=== PATIENT | female | born 1935 | race Caucasian/White ===

== ENCOUNTER → 2022-08-02 | Outpatient (CLI) | payer MEDICARE, SELFPAY ==
[2022-08-02 11:31] LABS: EST Glomerular Filtration Rate 73 mL/min (>60); Est Glom Filt Rate - Afr Amer 88 mL/min (>60)
== END | disposition home or self-care (01) ==
LOC: LAB 10:38
PROVIDERS: PCP Family Medicine; Referring Provider Physician Assistant Surgical; Visit Provider Physician Assistant Surgical
DX: N28.9 Disorder of kidney and ureter, unspecified (principal)
CPT/HCPCS: 36415; 82565

== ENCOUNTER 2023-05-03 07:16 | Inpatient (IN) | payer MEDICARE, SELFPAY ==
[2023-05-03] VITALS (8 sets, daily range): BP systolic 151–193; BP diastolic 71–89; PULSE 64–86; RESP 14–18; TEMP 36.2–36.7; O2SAT 95–99; BMI 27.7; BMI 26.2
--- NOTE | 2023-05-03 07:25 | RAD_ITS ---
EXAM: XR RIGHT HIP WITH PELVIS WHEN PERFORMED, 2 OR 3 VIEWS CLINICAL INDICATION: atraumatic right hip pain TECHNIQUE: Two or three views of the right hip with pelvis when performed. COMPARISON: No relevant prior studies available. FINDINGS: BONES/JOINTS: Suspicious fracture line across the right femoral neck. Severe degenerative osteoarthrosis of both hip joints. No destructive or sclerotic lesions. Note that overlapping bowel shadows may however obscure fine detail. Sacroiliac joint is unremarkable. No widening of the pubic symphysis. SOFT TISSUES: Unremarkable. No soft tissue swelling or gas. RAD/HIP, UNI W/ Pelvis 2-3 Views IMPRESSION: 1. Suspicious fracture across the right femoral neck. 2. Severe degenerative osteoarthrosis of both hips. Electronically Signed: Kunal Cervantes MD at 9:36 EST ,
--- NOTE | 2023-05-03 07:25 | RAD_ITS ---
EXAM: XR RIGHT KNEE, 3 VIEWS CLINICAL INDICATION: atraumatic pain TECHNIQUE: Three views of the right knee. COMPARISON: No relevant prior studies available. FINDINGS: BONES/JOINTS: Faint calcifications above the patella. 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 Mild narrowing of the patellofemoral articulation medial and lateral femorotibial compartments. No acute fracture. No subluxation. Normal alignment. No sclerotic or destructive changes observed. SOFT TISSUES: Faint calcification of the right lateral meniscus. No soft tissue swelling or gas. No radiopaque foreign body. VASCULATURE: Vascular calcifications along the distal SFA down to the popliteal artery. RAD/Knee 3 Views IMPRESSION: 1. No acute osseous abnormality of the right knee. 2. Faint calcification in the right lateral meniscus suggestive of the arthropathy. 3. Mild tricompartmental degenerative osteoarthrosis of the right knee. Electronically Signed: Kunal Cervantes MD at 9:45 EST ,
--- NOTE | 2023-05-03 07:25 | RAD_ITS ---
EXAM: XR LEFT KNEE, 3 VIEWS CLINICAL INDICATION: atraumatic knee pain TECHNIQUE: Three views of the left knee. COMPARISON: No relevant prior studies available. 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 Prominent chondrocalcinosis along the medial and lateral femorotibial compartments. Calcific tendinosis in the anterior superior surface of the patella. No acute fracture. No subluxation. Normal alignment. Preservation of the joint space. No sclerotic or destructive changes observed. SOFT TISSUES: Prominent cluster of calcifications in the subcutaneous space overlying the anterior proximal tibial shaft. Minimal linear calcification in the suprapatellar bursa visible on the left lateral view but not confirmed in the AP view or patellar view. No soft tissue swelling or gas. No radiopaque foreign body. VASCULATURE: Vascular calcifications along the SFA and popliteal artery. RAD/Knee 3 Views IMPRESSION: 1. 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 2. Prominent cluster of calcifications forming a masslike calcified density overlying the anterior surface of the proximal tibial shaft. This may be old posttraumatic calcifications. 3. No suspicious acute fracture or dislocation of the left knee. Electronically Signed: Kunal Cervantes MD at 9:40 EST ,
--- NOTE | 2023-05-03 07:27 | ED.VIS.LOWEX ---
HPI History of Present Illness HPI Narrative: 89-year-old female 1+ year history of bilateral knee pain initially started in the left now both. Also complaining of right hip pain. Denies any fall injury or trauma. No prior lower extremity surgeries. She saw orthopedics within the last year. She denies any fever or redness. She has been using Tylenol and just darted ibuprofen for pain. Chief Complaint: Lower Extremity Injury Informant: patient and spouse/S.O. Occured/Mechanism Mechanism/Context: No injury and No blunt trauma Onset/Context/Timing Onset: - (Around 1 year.) Context: Gradual Onset Timing: Continuous Quality of Pain: Dull and Aching Current Severity: Moderate Maximum Severity: Moderate Associated Symptoms Associated Symptoms: Negative for Parasthesia, Weakness or Loss of Funtion Narrative Narrative: 87-year-old female with bilateral knee and right hip pain. No falls, trauma or fever. Prior similar symptoms: Yes Recent Illness/Hospitalization: No PFSH PFSH Home Medications atorvastatin 20 mg tablet 20 mg PO DAILY 05/03/23 [History Last Taken Unknown] timolol maleate 0.5 % eye drops 1 drp ophthalmic (eye) BID 05/03/23 [History Last Taken Unknown] Allergy/AdvReac Type Severity Reaction Status Date / Time ciprofloxacin Allergy Mild Hives Verified 05/03/23 08:34 duloxetine AdvReac Severe PT UNSURE Verified 05/03/23 08:34 OF REACTION Surgical History (Updated 05/03/23 @ 08:43 by Geneva Mclaughlin RN) History of tonsillectomy and adenoidectomy Social History Smoking Status: Never smoker ROS ROS ED ROS Narrative Patient denies recent illness. Review of Systems ROS Unobtainable: Denies due to encephalopathy Constitutional Constitutional ED: Denies chills or fever(s) Eyes Eyes: Denies blurry vision ENT ENT ED: Denies ear pain Cardiovascular Cardiovascular: Denies chest pain Respiratory/Chest Respiratory/Chest: Denies cough or dyspnea Gastrointestinal Gastrointestinal: Denies abdominal pain Genitourinary Genitourinary ED: Denies dysuria or hematuria Musculoskeletal Musculoskeletal: Denies arthralgias or back pain Integumentary Denies abscess or Abrasions Neurologic Neurologic: Denies headache(s) Psychiatric Psychiatric: Denies anxiety Endocrine Endocrinology: Denies polydipsia or polyphagia Hematologic/Lymphatic Hematologic/Lymphatic: Denies easy bleeding, easy bruising or lymphadenopathy Allergic/Immunologic Allergic/Immunologic ED: Denies mouth swelling or tongue swelling EXAM Physical Exam Narrative Exam Narrative: Well-appearing 87-year-old female. Vital signs stable afebrile. Blood pressure elevated 193/89. Does not look septic toxic or in distress. Family at bedside. H EENT exam unremarkable. Neck nontender. Lungs clear to auscultation bilaterally. Heart regular rhythm no murmur appreciated. Chest wall nontender. Abdomen soft nontender. Back nontender. Neurologically she is awake and alert. Moving all 4 extremities. 5 out of 5 motor strength. Both knees have changes consistent with arthritis. She is able to flex and extend at both hips knees ankles and feet. Dorsi and plantarflexion intact. There is no significant edema. No gross bony deformities. No redness or warmth. Const Vital Signs: 05/03/23 07:17 05/03/23 07:16 Temperature 97.1 F L Temperature Source Temporal Pulse Rate 73 Respiratory Rate 14 Blood Pressure 193/89 H Blood Pressure Mean 123 Pulse Ox 99 Oxygen Delivery Method Room Air Positive well nourished and well developed; Negative for cachectic, contractures or unkempt General Appearance ED: well developed and NAD; Negative for unkempt, cachectic or contractures Nutritional Appearance: Negative for cachectic HEENT Reports moist mucous membranes normocephalic and atraumatic; Negative for trauma or tenderness Eyes PERRL General Eye ED: Negative for other Neck full ROM and supple Thyroid: Negative for tender Lymph Lymphatic: Negative for other Chest Wall inspection of chest normal and palpation of chest normal Chest: Negative for other Resp normal respiratory effort, no retractions and clear to auscultation bilaterally Effort and Inspection: Negative for pain with movement Auscultation: Negative for rales, rhonchi, wheezes or diminished lung sounds Cardio regular rate, regular rhythm, S1 normal heart sound, S2 normal heart sound and no murmurs Rate: Negative for bradycardia or tachycardic Rhythm: Negative for abnormal rhythm Bruits: Negative for other GI non-tender, non-distended and no masses Inspection: Negative for abdominal distention Auscultation: normoactive bowel sounds Palpation: soft; Negative for tender, guarding or rebound tenderness present Bladder / Kidney Exam: No other Back/Spine no CVA tenderness General Back: Negative for CVA tenderness Cervical Spine: Negative for cervical spine tenderness Thoracic Spine / Upper Back: Negative for thoracic spinal tenderness Lumbar Spine / Lower Back: Negative for lumbar spinal tenderness Extremity normal to inspection and full ROM Extremity Narrative: Chronic arthritic changes to both knees. General Extremety ED: Negative for cyanosis or edema General Extremity: Negative for cyanosis or edema Neuro oriented x3, CN's II-XII intact bilaterally and moves all extremities Sensorium / Orientation: alert, oriented to person, oriented to place and oriented to time; Negative for orientation impaired, confused, lethargic or stuporous Motor Exam: strength 5/5 throughout Psych mental status grossly normal Appearance: Negative for unkempt Speech: No other Mood & Affect: Negative for anxious Skin no wounds Lesions: no lesions Rashes: no rashes Trauma: Negative for abrasion or laceration MDM MDM MDM Narrative Medical decision making narrative: 87-year-old female complaining of bilateral knee and right hip pain. Atraumatic for over a year. X-rays being obtained. Exam otherwise consistent with arthritis. Patient's right hip x-ray shows an atraumatic right femoral neck fracture nondisplaced. Discussed with orthopedics on-call Dr. Marquis Mercado. Patient will be admitted to the hospitalist and one of the physicians from [facility] will repair the hip fracture in the next several days. Patient family are aware. History & Record Review Discussion w/independent historian: Patient Additional record(s) reviewed:: Prior inpatient record, Prior outpatient record, Prior ED visit and Prior labs Lab Data Attestation: I reviewed the patient's lab results. Lab results narrative: CBC unremarkable. White count 9. H&H 14 and 42. Platelets 306. PT/INR normal. Electrolytes unremarkable. Gap of 5. Normal BUN 12 creatinine 0.6. Glucose 128. Labs: Laboratory Results - last 24 hr 05/03/23 10:05 WBC 9.7 RBC 4.65 Hgb 14.0 Hct 42.3 MCV 91.0 MCH 30.1 MCHC 33.1 RDW Std Deviation 42.0 RDW Coeff of Annel 12.7 Plt Count 306 MPV 9.7 PT 13.1 INR 1.0 Sodium 136 Potassium 3.6 Chloride 105 Carbon Dioxide 26.0 Anion Gap 5 BUN 12 Creatinine 0.63 Estim Creat Clear Calc 46.73 Est GFR (MDRD) Af Amer 115 Est GFR (MDRD) Non-Af 95 BUN/Creatinine Ratio 19.0 Glucose 128 H Calcium 9.5 Radiography Diagnostic Testing: Clinical Impression(s) from Imaging Studies Hip/Pelvis X-Ray 05/03/23 07:25 IMPRESSION: 1. Suspicious fracture across the right femoral neck. 2. Severe degenerative osteoarthrosis of both hips. Electronically Signed: Kunal Cervantes MD at 9:36 EST Reading Location ID and State: [facility] / [place] , Service support , Knee X-Ray 05/03/23 07:25 IMPRESSION: 1. 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 2. Prominent cluster of calcifications forming a masslike calcified density overlying the anterior surface of the proximal tibial shaft. This may be old posttraumatic calcifications. 3. No suspicious acute fracture or dislocation of the left knee. Electronically Signed: Kunal Cervantes MD at 9:40 EST , Knee X-Ray 05/03/23 07:25 IMPRESSION: 1. No acute osseous abnormality of the right knee. 2. Faint calcification in the right lateral meniscus suggestive of the arthropathy. 3. Mild tricompartmental degenerative osteoarthrosis of the right knee. Electronically Signed: Kunal Cervantes MD at 9:45 EST , Right knee x-ray no acute process. Interpreted by myself and the radiologist shows chronic changes consistent with arthritis. Left knee x-ray interpreted by myself and the radiologist shows no acute process. Degenerative arthritis of the knee. There is a calcification that looks like calcified tibial bursa sac. Pelvis and right hip x-ray shows nondisplaced fracture of the right femoral neck. Arthritis of both hips. Interpreted both by myself and the radiologist. Rhythm Strip Rhythm Strip: Sinus Rhythm Rate: 70 Ectopy: None EKG Initial EKG: Attestation: I personally reviewed and interpreted this EKG as follows: Interpretation: Sinus Rhythm and No Acute Injury Pattern Comments: Normal sinus rhythm rate of 70 no acute signs of NE, ischemia nor dysrhythmia. Preop EKG for surgery. Discharge Plan Triage Chief Complaint: Lower Extremity Injury ED Provider: Azar Solis Dx/Rx/DC Orders Clinical Impression: Arthritis of knee, History of hypertension, Closed fracture of right hip Prescriptions: No Action atorvastatin 20 mg tablet 20 mg PO DAILY Patient Comments: take 1/2 tablet by mouth at bedtime for cholesterol timolol maleate 0.5 % drops 1 drp ophthalmic (eye) BID Patient Comments: instill 1 drop into both eyes twice a day Primary Care Provider: Jaec Andrews Referrals: Jace Andrews MD [Primary Care Provider] - Disposition Disposition: Acute Care Hospital [facility]
[2023-05-03] MEDS: HYDROcodone Bitartrate/Apap 5/325 Tablet PO (07:46)
--- OUTSIDE RECORDS SUMMARY | 2023-05-03 08:01 | XMS RPT_ITS | CCD ---
Author Name Unknown Address [address] [place] [address] Organization [facility] Care Team Providers Care Early Childhood Education Specialist Name Role Phone Janusz Andrews MD Primary Care Provider JANUSZ ANDREWS Primary Care Unavailab le PODLOGAR, JANE Referring Unavailable JANUSZ ANDREWS Primary Care Unavailab le PODLOGAR, JANE Referring Unavailable JANUSZ ANDREWS Primary Care Unavailab le PODLOGAR, JANE Referring Unavailable JANUSZ ANDREWS Primary Care Unavailab le PODLOGAR, JANE Referring Unavailable JANUSZ ANDREWS Primary Care Unavailab le JANUSZ ANDREWS Primary Care Unavailab le PODLOGAR, JANE Referring Unavailable JANUSZ ANDREWS Primary Care Unavailab le PODLOGAR, JANE Referring Unavailable JANUSZ ANDREWS Primary Care Unavailab le PODLOGAR, JANE Referring Unavailable KEKE LAUREN Attending Unavailable JANUSZ ANDREWS Primary Care Unavailab le PODLOGAR, JANE Referring Unavailable KEKE LAUREN Attending Unavailable JANUSZ ANDREWS Primary Care Unavailab le PODLOGAR, JANE Referring Unavailable KEKE LAUREN Attending Unavailable JANUSZ ANDREWS Primary Care Unavailab le PODLOGAR, JANE Referring Unavailable KEKE LAUREN Attending Unavailable JANUSZ ANDREWS Primary Care Unavailab le PODLOGAR, JANE Referring Unavailable KEKE LAUREN Attending Unavailable JANUSZ ANDREWS Primary Care Unavailab le PODLOGAR, JANE Referring Unavailable JANUSZ ANDREWS Primary Care Unavailab le PODLOGAR, JANE Referring Unavailable JANUSZ ANDREWS Primary Care Unavailab le PODLOGAR, JANE Attending Unavailable PODLOGAR, JANE Referring Unavailable JANUSZ ANDREWS Primary Care Unavailab le PODLOGAR, JANE Attending Unavailable Allergies Allergy Classification Reported Allergen(s) Allergy Type Date of Onset Reaction(s) Facility (20 sources) Ciprofloxacin; Translations: [CIPROFLOXACIN] Drug Allergy 07-22-2005 Rash, Hives [facility] Work Phone: (20 sources) DULoxetine; Translations: [DULOXETINE] Drug Allergy 08-08-2021 Intolerance [facility] Work Phone: Medications Completed/Discontinued Medications Medication Drug Class(es) Dates Sig (Normalized) Sig (Original) atorvastatin 20 mg oral tablet (20 sources) HMG-CoA Reductase Inhibitor Start: 03-09-2021 End: 12-27-2022 take 0.5 tablet by mouth once daily at bedtime for hyperlipidemia atorvastatin (LIPITOR) 20 mg tablet Indications: Mixed hyperlipidemia Take 0.5 tablets by mouth daily at bedtime. For cholesterol. 90 tablet 1 12/27/2022 Active Problems Active Problems Problem Classification Problem Date Documented Date Episodic/Chronic Cataract (20 sources) Bilateral cataracts; Translations: [Unspecified cataract] Onset: 08-04-2015 08-04-2015 Chronic Disorders of lipid metabolism (20 sources) Mixed hyperlipidemia; Translations: [Mixed hyperlipidemia] Onset: 04-29-2006 08-04-2015 Chronic Diverticulosis and diverticulitis (20 sources) Diverticulosis of colon; Translations: [Diverticulosis of large intestine without perforation or abscess without bleeding] 08-04-2015 Chronic Glaucoma (20 sources) Glaucoma; Translations: [Unspecified glaucoma] 11-18-2017 Chronic Hemorrhoids (20 sources) Hemorrhoids; Translations: [Unspecified hemorrhoids] 08-04-2015 Episodic Menopausal disorders (20 sources) Atrophic vaginitis; Translations: [Postmenopausal atrophic vaginitis] Onset: 01-27-2012 08-04-2015 Chronic Other and unspecified benign neoplasm (20 sources) History of polyp of colon; Translations: [Personal history of colonic polyps] 08-04-2015 Episodic Other connective tissue disease (12 sources) Paraparesis; Translations: [Other symptoms and signs involving the musculoskeletal system] Onset: 01-02-2023 12-04-2022 Episodic Other connective tissue disease (1 source) Other symptoms and signs involving the musculoskeletal system; Translations: [Weakness of both lower extremities] Onset: 01-02-2023 Episodic Other ear and sense organ disorders (20 sources) Hearing loss; Translations: [Unspecified hearing loss, unspecified ear] Onset: 08-04-2015 08-04-2015 Chronic Other lower respiratory disease (2 sources) Dyspnea on exertion; Translations: [Other forms of dyspnea] 12-04-2022 Episodic Other nutritional; endocrine; and metabolic disorders (20 sources) Obese class I; Translations: [Obesity, unspecified] 03-31-2018 Chronic Other screening for suspected conditions (not mental disorders or infectious disease) (2 sources) Patient encounter status; Translations: [Encounter for screening mammogram for malignant neoplasm of breast] Episodic Other skin disorders (1 source) Mass of subcutaneous tissue of left lower leg; Translations: [Localized swelling, mass and lump, left lower limb] Episodic Lynne-; endo-; and myocarditis; cardiomyopathy (except that caused by tuberculosis or sexually transmitted disease) (20 sources) Heart valve disorder; Translations: [Endocarditis, valve unspecified] Onset: 04-29-2006 03-19-2021 Chronic 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) Midline cystocele; Translations: [Cystocele, midline] Onset: 08-04-2015 08-04-2015 Chronic Spondylosis; intervertebral disc disorders; other back problems (12 sources) Neck pain; Translations: [Cervicalgia] Onset: 01-02-2023 12-27-2022 Episodic Past or Other Problems Problem Classification Problem Date Documented Da te Episodic/Chronic Malaise and fatigue (2 sources) Fatigue; Translations: [Other fatigue] Onset: 12-06-2022 12-04-2022 Episodic Neoplasms of unspecified nature or uncertain behavior (20 sources) Neoplasm of uncertain behavior of skin; Translations: [Neoplasm of uncertain behavior of skin] Onset: 08-04-2015 08-04-2015 Episodic Other connective tissue disease (20 sources) Aching leg syndrome; Translations: [Pain in leg, unspecified] Onset: 07-31-2021 Episodic Other lower respiratory disease (20 sources) Multiple nodules of lung; Translations: [Other nonspecific abnormal finding of lung field] Onset: 04-16-2018 04-16-2018 Episodic Other lower respiratory disease (1 source) Other forms of dyspnea; Translations: [Dyspnea on exertion] Onset: 12-04-2022 Episodic Other non-traumatic joint disorders (20 sources) Chronic pain of left upper limb; Translations: [Pain in left shoulder] Onset: 09-13-2019 09-13-2019 Episodic Results Test Name Value Interpretation Reference Range Facil ity Vital Signs Date Time Vital Sign Value Performing Clinician Lida smith 12-27-2022 13:13-0400 Body weight 67.95 kg Jane Podlogar DIRECTOR OF REAL ESTATE.COUNTER SALES REPRESENTATIVE Work Phone: [facility] 12-27-2022 13:13-0400 Diastolic blood pressure 78 mm[Hg] Jane Podlogar DIRECTOR OF REAL ESTATE.COUNTER SALES REPRESENTATIVE Work Phone: [facility] 12-27-2022 13:13-0400 Heart rate 72 /min Jane Podlogar DIRECTOR OF REAL ESTATE.COUNTER SALES REPRESENTATIVE Work Phone: [facility] 12-27-2022 13:13-0400 Respiratory rate 18 /min Jane Podlogar DIRECTOR OF REAL ESTATE.COUNTER SALES REPRESENTATIVE Work Phone: [facility] 12-27-2022 13:13-0400 SaO2% (BldA) [Mass fraction] 95 % Jane Podlogar DIRECTOR OF REAL ESTATE.COUNTER SALES REPRESENTATIVE Work Phone: [facility] 12-27-2022 13:13-0400 Systolic blood pressure 142 mm[Hg] Jane Podlogar DIRECTOR OF REAL ESTATE.COUNTER SALES REPRESENTATIVE Work Phone: [facility] 12-04-2022 14:20-0400 Body weight 68.95 kg Jane Podlogar DIRECTOR OF REAL ESTATE.COUNTER SALES REPRESENTATIVE Work Phone: [facility] 12-04-2022 14:20-0400 Diastolic blood pressure 84 mm[Hg] Jane Podlogar DIRECTOR OF REAL ESTATE.COUNTER SALES REPRESENTATIVE Work Phone: [facility] 12-04-2022 14:20-0400 Heart rate 71 /min Jane Podlogar DIRECTOR OF REAL ESTATE.COUNTER SALES REPRESENTATIVE Work Phone: [facility] 12-04-2022 14:20-0400 Respiratory rate 20 /min Jane Podlogar DIRECTOR OF REAL ESTATE.COUNTER SALES REPRESENTATIVE Work Phone: [facility] 12-04-2022 14:20-0400 SaO2% (BldA) [Mass fraction] 98 % Jane Podlogar DIRECTOR OF REAL ESTATE.COUNTER SALES REPRESENTATIVE Work Phone: [facility] 12-04-2022 14:20-0400 Systolic blood pressure 182 mm[Hg] Jane Podlogar DIRECTOR OF REAL ESTATE.COUNTER SALES REPRESENTATIVE Work Phone: [facility] 12-17-2021 10:21-0400 Body weight 73.3 kg Jane Podlogar DIRECTOR OF REAL ESTATE.COUNTER SALES REPRESENTATIVE Work Phone: [facility] 12-17-2021 10:21-0400 Diastolic blood pressure 82 mm[Hg] Jane Podlogar DIRECTOR OF REAL ESTATE.COUNTER SALES REPRESENTATIVE Work Phone: [facility] 12-17-2021 10:21-0400 Heart rate 68 /min Jane Podlogar DIRECTOR OF REAL ESTATE.COUNTER SALES REPRESENTATIVE Work Phone: [facility] 12-17-2021 10:21-0400 Respiratory rate 16 /min Jane Podlogar DIRECTOR OF REAL ESTATE.COUNTER SALES REPRESENTATIVE Work Phone: [facility] 12-17-2021 10:21-0400 SaO2% (BldA) [Mass fraction] 96 % Jane Podlogar DIRECTOR OF REAL ESTATE.COUNTER SALES REPRESENTATIVE Work Phone: [facility] 12-17-2021 10:21-0400 Systolic blood pressure 142 mm[Hg] Jane Podlogar DIRECTOR OF REAL ESTATE.COUNTER SALES REPRESENTATIVE Work Phone: [facility] Encounters Encounter Date Encounter Type Care Provider Facility Start: 01-29-2023 End: 01-29-2023 [facility] KEKE LEONIDAS Facility:[facility] Start: 01-29-2023 End: 01-29-2023 ambulatory [facility] LAURA Sandoval [facility] Physical Therapy Procedures Date Procedure Procedure Detail Performing Clinician Start: 12-21-2022 [employer] COVI D-19 VACCINE ( SEASON) AGE 12+ YR Kade Fisher MD Work Phone: Start: 12-21-2022 INFLUENZA VACCINE, P RSV FREE, AGE 65+ YR, HIGH DOSE, QUADRIVALENT (FLUZONE HIGH-DOSE) Kade Fisher MD Work Phone: Start: 12-09-2022 Myocardial spect mul tiple studies Jane Podlogar DIRECTOR OF REAL ESTATE.COUNTER SALES REPRESENTATIVE Work Phone: Start: 12-26-2021 INFLUENZA SEASONAL QUADRIVALENT HIGH DOSE AGE 65+ Janusz Andrews MD Work Phone: Start: 06-11-2021 Screening mammograph y bi [facility] breast [facility] cad Jane Perez DIRECTOR OF REAL ESTATE.COUNTER SALES REPRESENTATIVE Work Phone: Plan of Treatment Date Care Activity Detail Author Start: 03-31-2028 Urine microalbumin profile [facility] Start: 12-04-2025 Diabetes Screening Diabetes Screenin g [facility] Start: 05-31-2024 DIABETES SCREEN DIABETES SCREEN [facility] Start: 05-31-2024 Diabetes Screening Diabetes Screenin g [facility] Start: 02-15-2023 Covid-19 Vaccine (4 - Moderna series) Covid-19 Vaccine (4 - Moderna series) [facility] Start: 12-04-2022 End: 02-03-2023 Comprehensive metabolic 2000 panel - Serum or Plasma [facility] Work Phone: Immunizations Immunization Date Immunization Notes Care Provider Fa cility 12-21-2022 COVID-19 vaccine, ag e 12+ yr, season (PFIZER-BIONTECH) Immunization [place] Work Phone: [facility] Work Phone: 12-21-2022 influenza (HD-IIV4) vaccine, age 65+ yr, high dose, quadrivalent, PF (FLUZONE HIGH-DOSE) Immunization [place] Work Phone: [facility] 12-26-2021 influenza, high-dose , quadrivalent vaccine (FLUZONE HIGH DOSE QUADRIVALENT) [facility] Work Phone: [facility] Work Phone: 12-26-2021 influenza virus vaccine, unspecified formulation Jane Perez DIRECTOR OF REAL ESTATE.COUNTER SALES REPRESENTATIVE Work Phone: [facility] 12-16-2020 influenza, high-dose , quadrivalent vaccine (FLUZONE HIGH DOSE QUADRIVALENT) Jane Perez DIRECTOR OF REAL ESTATE.COUNTER SALES REPRESENTATIVE Work Phone: [facility] Work Phone: 12-25-2019 influenza, high-dose , quadrivalent vaccine (FLUZONE HIGH DOSE QUADRIVALENT) Jane Podlogar DIRECTOR OF REAL ESTATE.COUNTER SALES REPRESENTATIVE Work Phone: [facility] 01-15-2019 influenza, high dose seasonal, preservative-free Jane Podlogar DIRECTOR OF REAL ESTATE.COUNTER SALES REPRESENTATIVE Work Phone: [facility] 12-20-2017 influenza, high dose seasonal, preservative-free Jane Podlogar DIRECTOR OF REAL ESTATE.COUNTER SALES REPRESENTATIVE Work Phone: [facility] 2016 influenza, high dose seasonal, preservative-free Jane Podlogar DIRECTOR OF REAL ESTATE.COUNTER SALES REPRESENTATIVE Work Phone: [facility] 01-31-2016 influenza, high dose seasonal, preservative-free Jane Podlogar DIRECTOR OF REAL ESTATE.[facility] Work Phone: [facility] Work Phone: 08-04-2015 pneumococcal conjuga te vaccine, 13 valent Jane Podlogar DIRECTOR OF REAL ESTATE.[facility] Work Phone: [facility] 12-22-2014 influenza, high dose seasonal, preservative-free Jane Podlogar DIRECTOR OF REAL ESTATE.[facility] Work Phone: [facility] 12-29-2013 influenza, seasonal, injectable Jane Podlogar DIRECTOR OF REAL ESTATE.[facility] Work Phone: [facility] 01-02-2013 influenza virus vaccine, unspecified formulation Jane Podlogar DIRECTOR OF REAL ESTATE.[facility] Work Phone: [facility] Work Phone: 12-28-2011 influenza virus vaccine, unspecified formulation Jane Podlogar DIRECTOR OF REAL ESTATE.COUNTER SALES REPRESENTATIVE Work Phone: [facility] Work Phone: 12-22-2010 influenza virus vaccine, unspecified formulation Jane Podlogar DIRECTOR OF REAL ESTATE.[facility] Work Phone: [facility] Work Phone: 01-18-2010 influenza virus vaccine, unspecified formulation Jane Podlogar DIRECTOR OF REAL ESTATE.[facility] Work Phone: [facility] Work Phone: 01-06-2009 influenza virus vaccine, unspecified formulation Jane Perez DIRECTOR OF REAL ESTATE.COUNTER SALES REPRESENTATIVE Work Phone: [facility] 09-19-2004 tetanus toxoid, adsorbed Jane Podlogernestina DIRECTOR OF REAL ESTATE.COUNTER SALES REPRESENTATIVE Work Phone: [facility] Work Phone: 04-26-2004 pneumococcal polysaccharide vaccine, 23 valent Keke Leonidas PT Work Phone: [facility] Payers Date Payer Category Payer Medicare MEDICARE MEDICAR E A AND B [id number] 2002-Present [phone] [place] [address] Medicare [id number] 2002 Medicare MEDICARE MEDICAR E A AND B [id number] 2002-Present [phone] [place] [address] Medicare [id number] 2002 Medicare [id number] Social History Date Type Detail Facility Start: 10-12-2012 End: 12-04-2022 Tobacco smoking status NHIS Never smoked tobacco [facility] Work Phone: Start: 07-24-2020 End: 12-27-2022 Alcohol intake Current non-drinker of alcohol (finding) [facility] Start: 1935 Sex Assigned At Not on file [facility] Start: 06-01-2021 End: 08-06-2021 Exposure to SARS-CoV-2 (event) Not sure [facility] Start: 10-12-2012 End: 12-04-2022 Tobacco use and exposure Smokeless tobacco non-user [facility] Work Phone: Start: 03-31-2018 End: 12-04-2022 History of Social function [facility] Start: 03-31-2018 End: 12-04-2022 Tobacco use panel [facility] Adult Depression Screening Assessment 0 [facility] Clinical Notes 08-04-2015 to 01-30-2023 Keke Lauren, PT - 01/30/2023 3:01 PM Keke Shelton, PT - 01/21/2023 1:11 PM Keke Munoz, PT - 01/16/2023 2:16 PM Keke Munoz, PT - 01/10/2023 3:11 PM EDT Note Date & Type Note Facility 01-30-2023 Note HNO ID: [id number] Author: Keke Lauren PT Service: ? Author Type: Physical Therapist Type: Progress Notes Filed: 01/30/2023 3:03 PM Note Text: Episode Visit Count: 5 Therapist That Will Accept/Oversee The Plan Of Care: Keke Lauren Start of Care Date: 01/02/23 Onset Date: 03/24/22 Plan of Care Certification Date: 01/02/23 Next Certification Due Date: 03/23/23 REHABILITATION AND SPORTS THERAPY PHYSICAL THERAPY DISCONTINUANCE OF CARE PLAN OF CARE UPDATE: Assessment: Telma Santos is discontinued from Physical Therapy services due to goal achievement. and Patient/Clinician mutual decision to discontinue current plan of care.. Patient was seen for 5 visits from Start of Care Date: 01/02/23 to 01/30/2023 and treatment included: Therapeutic exercise, Self-fpc management, and Gait training. Goals updated on 01/29/2023. Goals for Episode of Care: created on 01/02/23 through 03/04/23 [place] in home exercise program. Met Patient will decrease pain rating by 2 points to meet minimal clinical important difference for numeric pain rating scale. Met Patient will demonstrate increase in trunk/core and BLE strength to 4+/5 during manual muscle testing in order to improve function for basic self-care tasks, home management tasks, and light functional tasks. Perform walking, standing with decreased report of symptoms/pain in 6-8 Weeks. Partially met Perform self care without pain. Met Patient will Improve Timed Up and Go to 15 seconds to demonstrate decreased risk of falling. Improved but not met Patient will improve 30 second sit to stand to demonstrate improvement in functional lower extremity strength. Met SUBJECTIVE: Pt doing well today. She is very encouraged by her progress and enjoys doing the exercises. She notes that she feels confident doing them on her own, would like today to be the last visit. Pain: Pain Pain Level: 2 Pain Location: Leg - Right Description: Sore Frequency: Continuous PROMIS Scales Higher is Better 01/02/2023 Phys Func - Score 32 (moderate dysfunction) Phys Func - Percentile 4 % Self-Eff Symptom - Score 29 (Very Low) Self-Eff Symptom - Percentile 2 % T-scores: mean of general population = 50. 5 points is clinically meaningfully difference Percentiles provide an indication of how the patient's score ranks in relation to the general population. Higher percentile rankings indicate better function/quality of life. 50th percentile is the average of the general population and indicates half of respondents had a worse score. OBJECTIVE MEASURES WITH LEVEL OF FUNCTION: Cervical Spine ROM Cervical Flexion AROM: Normal Cervical Extension AROM: Normal Cervical Side-Bend Right AROM: Minimal limitation Cervical Side-Bend Left AROM: Minimal limitation Cervical Rotation Right AROM: Normal Cervical Rotation Left AROM: Normal LE Strength Trunk Strength: 4-/5 R LE Strength: 4+/5 L LE Strength: 4+/5 Functional Performance Test Results 30 Second Chair Stand Test: 9 reps Timed Up and Go (sec): 23.2 sec 4 Stage Balance Test Narrow base of support (sec): 10 sec Semi-tandem base of support (sec): 10 sec Tandem base of support (sec): 10 sec Single leg stance - right (sec): 2 sec Single leg stance - left (sec): 2 sec TREATMENT: Therapeutic Exercise: 1: SciFit seat 11 x6 min (1:1 entire time, discussed HEP compliance and patients desire to continue on own, reviewed therapy goals) 2: Discussed HEP and progressions/regressions 3: Objective measures obtained Skilled Intervention: Patient was educated in proper exercise technique and purpose for exercises. Skilled judgment was used in selection of appropriate interventions. Correct performance of therapeutic exercises was facilitated with verbal cuing. Patient education as noted. Billing Therapeutic Exercise Treatment Minutes: 30 Skilled Treatment Time Minutes (timed and untimed codes): 30 Total Session Time (minutes): 30 Session Start Time : 1430 Session Stop Time : 1500 Keke Lauren PT [facility] 01-30-2023 History of Presen t illness Narrative Episode Visit Count: 5 Therapist That Will Accept/Oversee The Plan Of Care: Keke Lauren Start of Care Date: 01/02/23 Onset Date: 03/24/22 Plan of Care Certification Date: 01/02/23 Next Certification Due Date: 03/23/23 REHABILITATION AND SPORTS THERAPY PHYSICAL THERAPY DISCONTINUANCE OF CARE PLAN OF CARE UPDATE: Assessment: Telma Santos is discontinued from Physical Therapy services due to goal achievement. and Patient/Clinician mutual decision to discontinue current plan of care.. Patient was seen for 5 visits from Start of Care Date: 01/02/23 to 01/30/2023 and treatment included: Therapeutic exercise, Self-fpc management, and Gait training. Goals updated on 01/29/2023. Goals for Episode of Care: created on 01/02/23 through 03/04/23 [place] in home exercise program. Met Patient will decrease pain rating by 2 points to meet minimal clinical important difference for numeric pain rating scale. Met Patient will demonstrate increase in trunk/core and BLE strength to 4+/5 during manual muscle testing in order to improve function for basic self-care tasks, home management tasks, and light functional tasks. Perform walking, standing with decreased report of symptoms/pain in 6-8 Weeks. Partially met Perform self care without pain. Met Patient will Improve Timed Up and Go to 15 seconds to demonstrate decreased risk of falling. Improved but not met Patient will improve 30 second sit to stand to demonstrate improvement in functional lower extremity strength. Met SUBJECTIVE: Pt doing well today. She is very encouraged by her progress and enjoys doing the exercises. She notes that she feels confident doing them on her own, would like today to be the last visit. Pain: Pain Pain Level: 2 Pain Location: Leg - Right Description: Sore Frequency: Continuous PROMIS Scales Higher is Better 01/02/2023 Phys Func - Score 32 (moderate dysfunction) Phys Func - Percentile 4 % Self-Eff Symptom - Score 29 (Very Low) Self-Eff Symptom - Percentile 2 % T-scores: mean of general population = 50. 5 points is clinically meaningfully difference Percentiles provide an indication of how the patient's score ranks in relation to the general population. Higher percentile rankings indicate better function/quality of life. 50th percentile is the average of the general population and indicates half of respondents had a worse score. OBJECTIVE MEASURES WITH LEVEL OF FUNCTION: Cervical Spine ROM Cervical Flexion AROM: Normal Cervical Extension AROM: Normal Cervical Side-Bend Right AROM: Minimal limitation Cervical Side-Bend Left AROM: Minimal limitation Cervical Rotation Right AROM: Normal Cervical Rotation Left AROM: Normal LE Strength Trunk Strength: 4-/5 R LE Strength: 4+/5 L LE Strength: 4+/5 Functional Performance Test Results 30 Second Chair Stand Test: 9 reps Timed Up and Go (sec): 23.2 sec 4 Stage Balance Test Narrow base of support (sec): 10 sec Semi-tandem base of support (sec): 10 sec Tandem base of support (sec): 10 sec Single leg stance - right (sec): 2 sec Single leg stance - left (sec): 2 sec TREATMENT: Therapeutic Exercise: 1: SciFit seat 11 x6 min (1:1 entire time, discussed HEP compliance and patients desire to continue on own, reviewed therapy goals) 2: Discussed HEP and progressions/regressions 3: Objective measures obtained Skilled Intervention: Patient was educated in proper exercise technique and purpose for exercises. Skilled judgment was used in selection of appropriate interventions. Correct performance of therapeutic exercises was facilitated with verbal cuing. Patient education as noted. Billing Therapeutic Exercise Treatment Minutes: 30 Skilled Treatment Time Minutes (timed and untimed codes): 30 Total Session Time (minutes): 30 Session Start Time : 1430 Session Stop Time : 1500 Keke Lauren PT documented in this encounter [facility] 01-21-2023 Note HNO ID: [id number] Author: Keke Lauren PT Service: ? Author Type: Physical Therapist Type: Progress Notes Filed: 01/21/2023 1:12 PM Note Text: Episode Visit Count: 4 Therapist That Will Accept/Oversee The Plan Of Care: Keke Lauren Start of Care Date: 01/02/23 Onset Date: 03/24/22 Plan of Care Certification Date: 01/02/23 Next Certification Due Date: 03/23/23 REHABILITATION AND SPORTS THERAPY PHYSICAL THERAPY TREATMENT NOTE ASSESSMENT: Telma Santos tolerated the session with fatigue and no issues. She demonstrated difficulty with standing and walking today due to BLE fatigue. The patient will continue to benefit from ongoing skilled physical therapy to progress toward set goals. PLAN FOR NEXT VISIT: Continue BLE and back strengthening SUBJECTIVE: Pt's legs are sore and tired today from walking around the hospital yesterday trying to find the pharmacy Pain: Pain Pain Level: 5 Pain Location: Leg - Right Description: Sore Frequency: Continuous OBJECTIVE MEASURES WITH LEVEL OF FUNCTION: TREATMENT: Therapeutic Exercise: 1: SciFit seat 11 x6 min (subjective taken, discussed use of cane, HEP) 2: Scap retractions 2x10 3: *GTB rows 3x10 4: *W's 3x10 5: *Standing back against wall, shoulder flexion to end range 3x10 6: Discussed leg exercises for HEP and holding until leg fatigue resolves Skilled Intervention: Patient was educated in proper exercise technique and purpose for exercises. Skilled judgment was used in selection of appropriate interventions. Provided written instruction for home exercise program to facilitate proper performance and compliance. Correct performance of therapeutic exercises was facilitated with verbal, visual, and tactile cuing. Gait Trainin: Cuing for proper ambulation with Quad cane Skilled Intervention: Facilitated proper gait cycle with the use of verbal and visual cues for correction of gait deviations identified in the objective section above. Billing Therapeutic Exercise Treatment Minutes: 37 Gait Training Treatment Minutes: 3 Skilled Treatment Time Minutes (timed and untimed codes): 40 Total Session Time (minutes): 40 Session Start Time : 1230 Session Stop Time : 1310 Keke Lauren, PT [facility] 01-21-2023 History of Presen t illness Narrative Episode Visit Count: 4 Therapist That Will Accept/Oversee The Plan Of Care: Keke Lauren Start of Care Date: 01/02/23 Onset Date: 03/24/22 Plan of Care Certification Date: 01/02/23 Next Certification Due Date: 03/23/23 REHABILITATION AND SPORTS THERAPY PHYSICAL THERAPY TREATMENT NOTE ASSESSMENT: Telma Santos tolerated the session with fatigue and no issues. She demonstrated difficulty with standing and walking today due to BLE fatigue. The patient will continue to benefit from ongoing skilled physical therapy to progress toward set goals. PLAN FOR NEXT VISIT: Continue BLE and back strengthening SUBJECTIVE: Pt's legs are sore and tired today from walking around the hospital yesterday trying to find the pharmacy Pain: Pain Pain Level: 5 Pain Location: Leg - Right Description: Sore Frequency: Continuous OBJECTIVE MEASURES WITH LEVEL OF FUNCTION: TREATMENT: Therapeutic Exercise: 1: SciFit seat 11 x6 min (subjective taken, discussed use of cane, HEP) 2: Scap retractions 2x10 3: *GTB rows 3x10 4: *W's 3x10 5: *Standing back against wall, shoulder flexion to end range 3x10 6: Discussed leg exercises for HEP and holding until leg fatigue resolves Skilled Intervention: Patient was educated in proper exercise technique and purpose for exercises. Skilled judgment was used in selection of appropriate interventions. Provided written instruction for home exercise program to facilitate proper performance and compliance. Correct performance of therapeutic exercises was facilitated with verbal, visual, and tactile cuing. Gait Trainin: Cuing for proper ambulation with Quad cane Skilled Intervention: Facilitated proper gait cycle with the use of verbal and visual cues for correction of gait deviations identified in the objective section above. Billing Therapeutic Exercise Treatment Minutes: 37 Gait Training Treatment Minutes: 3 Skilled Treatment Time Minutes (timed and untimed codes): 40 Total Session Time (minutes): 40 Session Start Time : 1230 Session Stop Time : 1310 Keke Lauren PT documented in this encounter [facility] 01-16-2023 Note HNO ID: [id number] Author: Keke Lauren PT Service: ? Author Type: Physical Therapist Type: Progress Notes Filed: 01/16/2023 2:18 PM Note Text: Episode Visit Count: 3 Therapist That Will Accept/Oversee The Plan Of Care: Keke Lauren Start of Care Date: 01/02/23 Onset Date: 03/24/22 Plan of Care Certification Date: 01/02/23 Next Certification Due Date: 03/23/23 REHABILITATION AND SPORTS THERAPY PHYSICAL THERAPY TREATMENT NOTE ASSESSMENT: Telma Santos tolerated the session with fatigue and no issues. She demonstrated improvements in standing, walking. The patient will continue to benefit from ongoing skilled physical therapy to progress toward set goals. PLAN FOR NEXT VISIT: Continue BLE strengthening SUBJECTIVE: Pt doing better with the cane in the L hand and resizing it. Notes she is able to stand for longer, and feels less hunched over Pain: Pain Pain Level: 4 Pain Location: Leg - Right Description: Sore Frequency: Intermittent OBJECTIVE MEASURES WITH LEVEL OF FUNCTION: TREATMENT: Therapeutic Exercise: 1: SciFit seat 11 x5 min 2: Seated heel and toe raises x20 each 3: Seated marching 3x10/side 4: *Standing marching 3x10/side (standing at // bars here, countertop at home) 5: Standing hip abduction 3x10/side 6: Step ups onto 1 blue step 3x10/side 7: *Seated hip abduction with OTB 3x10 Skilled Intervention: Patient was educated in proper exercise technique and purpose for exercises. Skilled judgment was used in selection of appropriate interventions. Provided written instruction for home exercise program to facilitate proper performance and compliance. Correct performance of therapeutic exercises was facilitated with verbal, visual, and tactile cuing. Gait Trainin: Cuing for proper ambulation with Quad cane Skilled Intervention: Facilitated proper gait cycle with the use of verbal and visual cues for correction of gait deviations identified in the objective section above. Billing Therapeutic Exercise Treatment Minutes: 34 Gait Training Treatment Minutes: 5 Skilled Treatment Time Minutes (timed and untimed codes): 39 Total Session Time (minutes): 39 Session Start Time : 1319 Session Stop Time : 1358 Keke Lauren, PT [facility] 01-16-2023 History of Presen t illness Narrative Episode Visit Count: 3 Therapist That Will Accept/Oversee The Plan Of Care: Keke Lauren Start of Care Date: 01/02/23 Onset Date: 03/24/22 Plan of Care Certification Date: 01/02/23 Next Certification Due Date: 03/23/23 REHABILITATION AND SPORTS THERAPY PHYSICAL THERAPY TREATMENT NOTE ASSESSMENT: Telma Santos tolerated the session with fatigue and no issues. She demonstrated improvements in standing, walking. The patient will continue to benefit from ongoing skilled physical therapy to progress toward set goals. PLAN FOR NEXT VISIT: Continue BLE strengthening SUBJECTIVE: Pt doing better with the cane in the L hand and resizing it. Notes she is able to stand for longer, and feels less hunched over Pain: Pain Pain Level: 4 Pain Location: Leg - Right Description: Sore Frequency: Intermittent OBJECTIVE MEASURES WITH LEVEL OF FUNCTION: TREATMENT: Therapeutic Exercise: 1: SciFit seat 11 x5 min 2: Seated heel and toe raises x20 each 3: Seated marching 3x10/side 4: *Standing marching 3x10/side (standing at // bars here, countertop at home) 5: Standing hip abduction 3x10/side 6: Step ups onto 1 blue step 3x10/side 7: *Seated hip abduction with OTB 3x10 Skilled Intervention: Patient was educated in proper exercise technique and purpose for exercises. Skilled judgment was used in selection of appropriate interventions. Provided written instruction for home exercise program to facilitate proper performance and compliance. Correct performance of therapeutic exercises was facilitated with verbal, visual, and tactile cuing. Gait Trainin: Cuing for proper ambulation with Quad cane Skilled Intervention: Facilitated proper gait cycle with the use of verbal and visual cues for correction of gait deviations identified in the objective section above. Billing Therapeutic Exercise Treatment Minutes: 34 Gait Training Treatment Minutes: 5 Skilled Treatment Time Minutes (timed and untimed codes): 39 Total Session Time (minutes): 39 Session Start Time : 1319 Session Stop Time : 1358 Keke Lauren PT documented in this encounter [facility] 01-10-2023 Note HNO ID: [id number] Author: Keke Lauren PT Service: ? Author Type: Physical Therapist Type: Progress Notes Filed: 01/10/2023 3:13 PM Note Text: Episode Visit Count: 2 Therapist That Will Accept/Oversee The Plan Of Care: Keke Lauren Start of Care Date: 01/02/23 Onset Date: 03/24/22 Plan of Care Certification Date: 01/02/23 Next Certification Due Date: 03/23/23 REHABILITATION AND SPORTS THERAPY PHYSICAL THERAPY TREATMENT NOTE ASSESSMENT: Telma Santos tolerated the session with fatigue and no issues. She demonstrated improvements in ambulation with assistive devices and keeping eyes up. The patient will continue to benefit from ongoing skilled physical therapy to progress toward set goals. PLAN FOR NEXT VISIT: Continue upper back extension strength SUBJECTIVE: Pt doing well today, notes the exercises feel good and have her feeling a little stronger Pain: Pain Pain Level: 5 Pain Location: Neck, Leg - Right Description: Sore, Aching Frequency: Continuous OBJECTIVE MEASURES WITH LEVEL OF FUNCTION: TREATMENT: Therapeutic Exercise: 1: SciFit seat 11 x5 min (discussed HEP and compliance) 2: *Seated heel to toe raises 3x10 each 3: Calf raises at // bars 3x10 4: Seated marching 3x10/side 5: Standing hip abduction at // bars 3x10/side 6: *Seated scapular retractions 3x10 7: *Repeated cervical extensions in tolerated range 3x10 Skilled Intervention: Patient was educated in proper exercise technique and purpose for exercises. Skilled judgment was used in selection of appropriate interventions. Provided written instruction for home exercise program to facilitate proper performance and compliance. Correct performance of therapeutic exercises was facilitated with verbal, visual, and tactile cuing. Gait Trainin: Cued to use cane in left hand (cuing for proper sequence and safety, head up!) 2: Ambulation with wheeled walker around gym 1 time cuing for proper sizing, sequence, and use (again, cued for head up!) Skilled Intervention: Patient was provided supervision during pre-gait/gait training to prevent falls and insure safety. Facilitated proper gait cycle with the use of verbal and visual cues for correction of gait deviations identified in the objective section above. Skilled judgment used to assess selection, proper sizing, and proper use of assistive device. Billing Therapeutic Exercise Treatment Minutes: 30 Gait Training Treatment Minutes: 9 Skilled Treatment Time Minutes (timed and untimed codes): 39 Total Session Time (minutes): 39 Session Start Time : 1424 Session Stop Time : 1503 Keke Lauren, PT [facility] 01-10-2023 History of Presen t illness Narrative Episode Visit Count: 2 Therapist That Will Accept/Oversee The Plan Of Care: Keke Lauren Start of Care Date: 01/02/23 Onset Date: 03/24/22 Plan of Care Certification Date: 01/02/23 Next Certification Due Date: 03/23/23 REHABILITATION AND SPORTS THERAPY PHYSICAL THERAPY TREATMENT NOTE ASSESSMENT: Telma Santos tolerated the session with fatigue and no issues. She demonstrated improvements in ambulation with assistive devices and keeping eyes up. The patient will continue to benefit from ongoing skilled physical therapy to progress toward set goals. PLAN FOR NEXT VISIT: Continue upper back extension strength SUBJECTIVE: Pt doing well today, notes the exercises feel good and have her feeling a little stronger Pain: Pain Pain Level: 5 Pain Location: Neck, Leg - Right Description: Sore, Aching Frequency: Continuous OBJECTIVE MEASURES WITH LEVEL OF FUNCTION: TREATMENT: Therapeutic Exercise: 1: SciFit seat 11 x5 min (discussed HEP and compliance) 2: *Seated heel to toe raises 3x10 each 3: Calf raises at // bars 3x10 4: Seated marching 3x10/side 5: Standing hip abduction at // bars 3x10/side 6: *Seated scapular retractions 3x10 7: *Repeated cervical extensions in tolerated range 3x10 Skilled Intervention: Patient was educated in proper exercise technique and purpose for exercises. Skilled judgment was used in selection of appropriate interventions. Provided written instruction for home exercise program to facilitate proper performance and compliance. Correct performance of therapeutic exercises was facilitated with verbal, visual, and tactile cuing. Gait Trainin: Cued to use cane in left hand (cuing for proper sequence and safety, head up!) 2: Ambulation with wheeled walker around gym 1 time cuing for proper sizing, sequence, and use (again, cued for head up!) Skilled Intervention: Patient was provided supervision during pre-gait/gait training to prevent falls and insure safety. Facilitated proper gait cycle with the use of verbal and visual cues for correction of gait deviations identified in the objective section above. Skilled judgment used to assess selection, proper sizing, and proper use of assistive device. Billing Therapeutic Exercise Treatment Minutes: 30 Gait Training Treatment Minutes: 9 Skilled Treatment Time Minutes (timed and untimed codes): 39 Total Session Time (minutes): 39 Session Start Time : 1424 Session Stop Time : 1503 Keke Lauren PT documented in this encounter [facility] 01-02-2023 Note HNO ID: [id number] Author: Keke Lauren PT Service: ? Author Type: Physical Therapist Type: Progress Notes Filed: 01/02/2023 1:44 PM Note Text: Episode Visit Count: 1 Therapist That Will Accept/Oversee The Plan Of Care: Keke Lauren Start of Care Date: 01/02/23 Onset Date: 03/24/22 Plan of Care Certification Date: 01/02/23 Next Certification Due Date: 03/23/23 Patient Identified by Name and Date of : Yes REHABILITATION AND SPORTS THERAPY PHYSICAL THERAPY EVALUATION PLAN OF CARE: Assessment: Telma Santos presents with chief complaint of BLE weakness,a nd difficulty with walking that interferes with standing, walking, cleaning, cooking . She presents with impairments in ADL's, balance, gait, overall function, range of motion, and strength. PROMIS? (Patient-Reported Outcomes Measurement Information System) scores were reviewed and all domains identified as a rehabilitation concern. Prognosis for therapy is Fair due to: clinical presentation, multiple co- morbidities, chronic nature of impairments, advanced age, limited tolerance to activity . She will benefit from skilled therapy services to meet the goals established for this plan of care as noted below. Goals for Episode of Care: created on 01/02/23 through 03/04/23 [place] in home exercise program. Patient will decrease pain rating by 2 points to meet minimal clinical important difference for numeric pain rating scale. Patient will demonstrate increase in trunk/core and BLE strength to 4+/5 during manual muscle testing in order to improve function for basic self-care tasks, home management tasks, and light functional tasks. Perform walking, standing with decreased report of symptoms/pain in 6-8 weeks. Perform self care without pain. Patient will Improve Timed Up and Go to 15 seconds to demonstrate decreased risk of falling. Patient will improve 30 second sit to stand to demonstrate improvement in functional lower extremity strength. Planned Interventions, Frequency, and Duration: Current Frequency: 1x/week Duration: 8 weeks Total Number of Visits Planned: 8 Planned Treatment Interventions: Therapeutic exercise (15626), Neuromuscular re-education (21129), Manual therapy (33039), Therapeutic activities (69713), Self-fpc management (77673), Gait Training (38260), Patient/Family/Caregiver Education, Body Mechanics Training PLAN FOR NEXT VISIT: SciFit for cardio benefits, BLE strengthening, trunk extension strength- may add rows, scap retractions, etc Patient demonstrates good understanding of plan of care and treatment. The above goals and plan of care were discussed and agreed upon by patient/family. SUBJECTIVE: BLE weakness for a few years now, but progressively getting worse. Notes she started using a cane to help. Does feel like the R knee could give out on her at times. Standing for long periods, walking, and lying down all bother her. Also notes it is difficult to strighten out when walking or standing to do dishes, etc. Neck feels weak along with the legs. She also becomes SOB easily and feels generally deconditioned. Functional Limitations: standing, walking, cleaning, cooking Prior Level of Function: Independent without limitations Intake Information: Prescription present Previous Treatment: Physical Therapy Pain: Pain Pain Level: 5 Pain Location: Neck, Leg - Right Description: Sore, Aching Frequency: Continuous PROMIS Scales Higher is Better 01/02/2023 Phys Func - Score 32 (moderate dysfunction) Phys Func - Percentile 4 % Self-Eff Symptom - Score 29 (Very Low) Self-Eff Symptom - Percentile 2 % T-scores: mean of general population = 50. 5 points is clinically meaningfully difference Percentiles provide an indication of how the patient's score ranks in relation to the general population. Higher percentile rankings indicate better function/quality of life. 50th percentile is the average of the general population and indicates half of respondents had a worse score. OBJECTIVE MEASURES WITH LEVEL OF FUNCTION: Cervical Spine ROM Cervical ROM : Limitation AROM Cervical Flexion AROM: Normal Cervical Extension AROM: Normal Cervical Side-Bend Right AROM: Moderate limitation Cervical Side-Bend Left AROM: Moderate limitation Cervical Rotation Right AROM: Minimal limitation Cervical Rotation Left AROM: Minimal limitation LE Strength Trunk Strength: 3+/5 R LE Strength: 4/5 grossly L LE Strength: 4/5 grossly Functional Performance Test Results Assistive Device: Quad Cane 30 Second Chair Stand Test: 8 reps Timed Up and Go (sec): 23.44 sec Timed Up and Go - Condition 2 (sec) : 23.38 (no AD) 4 Stage Balance Test Narrow base of support (sec): 10 sec Semi-tandem base of support (sec): 10 sec Tandem base of support (sec): 10 sec Single leg stance - right (sec): 0 sec Single leg stance - left (sec): 0 sec Education: Education Learning/e (more content not included)... [facility] 01-02-2023 History of Presen t illness Narrative Episode Visit Count: 1 Therapist That Will Accept/Oversee The Plan Of Care: Keke Lauren Start of Care Date: 01/02/23 Onset Date: 03/24/22 Plan of Care Certification Date: 01/02/23 Next Certification Due Date: 03/23/23 Patient Identified by Name and Date of : Yes REHABILITATION AND SPORTS THERAPY PHYSICAL THERAPY EVALUATION PLAN OF CARE: Assessment: Telma Santos presents with chief complaint of BLE weakness,a nd difficulty with walking that interferes with standing, walking, cleaning, cooking . She presents with impairments in ADL's, balance, gait, overall function, range of motion, and strength. PROMIS (Patient-Reported Outcomes Measurement Information System) scores were reviewed and all domains identified as a rehabilitation concern. Prognosis for therapy is Fair due to: clinical presentation, multiple co- morbidities, chronic nature of impairments, advanced age, limited tolerance to activity . She will benefit from skilled therapy services to meet the goals established for this plan of care as noted below. Goals for Episode of Care: created on 01/02/23 through 03/04/23 [place] in home exercise program. Patient will decrease pain rating by 2 points to meet minimal clinical important difference for numeric pain rating scale. Patient will demonstrate increase in trunk/core and BLE strength to 4+/5 during manual muscle testing in order to improve function for basic self-care tasks, home management tasks, and light functional tasks. Perform walking, standing with decreased report of symptoms/pain in 6-8 weeks. Perform self care without pain. Patient will Improve Timed Up and Go to 15 seconds to demonstrate decreased risk of falling. Patient will improve 30 second sit to stand to demonstrate improvement in functional lower extremity strength. Planned Interventions, Frequency, and Duration: Current Frequency: 1x/week Duration: 8 weeks Total Number of Visits Planned: 8 Planned Treatment Interventions: Therapeutic exercise (06396), Neuromuscular re-education (45843), Manual therapy (92290), Therapeutic activities (52880), Self-fpc management (54283), Gait Training (94709), Patient/Family/Caregiver Education, Body Mechanics Training PLAN FOR NEXT VISIT: SciFit for cardio benefits, BLE strengthening, trunk extension strength- may add rows, scap retractions, etc Patient demonstrates good understanding of plan of care and treatment. The above goals and plan of care were discussed and agreed upon by patient/family. SUBJECTIVE: BLE weakness for a few years now, but progressively getting worse. Notes she started using a cane to help. Does feel like the R knee could give out on her at times. Standing for long periods, walking, and lying down all bother her. Also notes it is difficult to strighten out when walking or standing to do dishes, etc. Neck feels weak along with the legs. She also becomes SOB easily and feels generally deconditioned. Functional Limitations: standing, walking, cleaning, cooking Prior Level of Function: Independent without limitations Intake Information: Prescription present Previous Treatment: Physical Therapy Pain: Pain Pain Level: 5 Pain Location: Neck, Leg - Right Description: Sore, Aching Frequency: Continuous PROMIS Scales Higher is Better 01/02/2023 Phys Func - Score 32 (moderate dysfunction) Phys Func - Percentile 4 % Self-Eff Symptom - Score 29 (Very Low) Self-Eff Symptom - Percentile 2 % T-scores: mean of general population = 50. 5 points is clinically meaningfully difference Percentiles provide an indication of how the patient's score ranks in relation to the general population. Higher percentile rankings indicate better function/quality of life. 50th percentile is the average of the general population and indicates half of respondents had a worse score. OBJECTIVE MEASURES WITH LEVEL OF FUNCTION: Cervical Spine ROM Cervical ROM : Limitation AROM Cervical Flexion AROM: Normal Cervical Extension AROM: Normal Cervical Side-Bend Right AROM: Moderate limitation Cervical Side-Bend Left AROM: Moderate limitation Cervical Rotation Right AROM: Minimal limitation Cervical Rotation Left AROM: Minimal limitation LE Strength Trunk Strength: 3+/5 R LE Strength: 4/5 grossly L LE Strength: 4/5 grossly Functional Performance Test Results Assistive Device: Quad Cane 30 Second Chair Stand Test: 8 reps Timed Up and Go (sec): 23.44 sec Timed Up and Go - Condition 2 (sec) : 23.38 (no AD) 4 Stage Balance Test Narrow base of support (sec): 10 sec Semi-tandem base of support (sec): 10 sec Tandem base of support (sec): 10 sec Single leg stance - right (sec): 0 sec Single leg stance - left (sec): 0 sec Education: Education Learning/educational needs: Home exercise program, Plan of Care, Safety, Changes in Plan of Care, Gait Training, Body Mechanics, Posture TREATMENT: PT Treatment Interventions: Therapeutic Exercise, Self-[facility] Management Evaluation Therapeutic Exercise: 1: *STS 3x10 2: *Standing hip abduction at countertop 3x10/side 3: *Calf raises at countertop 3x15 4: *Seated marching 3x10/side Skilled Intervention: Patient was educated in proper exercise technique and purpose for exercises. Skilled judgment was used in selection of appropriate interventions. Provided written instruction for home exercise program to facilitate proper performance and compliance. Correct performance of therapeutic exercises was facilitated with verbal, visual, and tactile cuing. Self-[facility] Management: 1: Discussed plan of care, head up with walking, seated posture, resized cane for improved ergonomics Skilled Intervention: Skilled judgment in the selection of proper modification for activity of daily living/home management based on clinical presentation, deficits, and needs. Reviewed patient specific diagnosis in relation to activities of daily living/home management. Activity progression based on professional judgement. Billing * Evaluation Low Complexity: 1 Unit Therapeutic Exercise Treatment Minutes: 10 Self-Care/Home Management Treatment Minutes: 15 Skilled Treatment Time Minutes (timed and untimed codes): 41 Total Session Time (minutes): 41 Session Start Time : 1136 Session Stop Time : 1217 Keke Lauren PT documented in this encounter [facility] 12-27-2022 Note HNO ID: [id number] Author: Jane Perez APRN.COUNTER SALES REPRESENTATIVE Service: ? Author Type: Nurse Practitioner Type: Progress Notes Filed: 12/27/2022 1:56 PM Note Text: 12/27/2022 Patient presents with: Recheck: Blood pressure SUBJECTIVE: This is a 87 year old that is here today for Above Complaints. BP elevated at last office visit. Patient without hx of HTN. Here for recheck. Would like to get some therapy for her neck. Having hard time raising her neck. Reports she has been looking down a lot sewing and reading. Using some bengay which relaxed it some. Denies past/present neck injury, extremity numbness, tingling or weakness Still feels leg are weak. Ambulating wiht a cane. No falls at home. Admits she does sit and sew and read a lot HYPERLIPIDEMIA: Patient is taking medications: Yes. Patient is watching diet: Yes. Patient denies myalgias: Yes. Patient denies gi upset: Yes PAST MEDICAL HISTORY Diagnosis Date Basal cell carcinoma 10/2017 Dr. Danielson Chronic kidney disease (CKD), stage III (moderate) (HCC) Diverticulosis of colon (without mention of hemorrhage) Diverticulosis Female cystocele [facility] Glaucoma Bilateral, Dr. Danielson Hyperlipidemia Obesity (BMI 30.0-34.9) Personal history of colonic polyps Colon polyps Trace cataracts Unspecified hemorrhoids without mention of complication Hemorrhoids Valvular heart disease mild aortic sclerosis 2008 ALLERGIES Cipro Xr [Ciprofloxacin] and Cymbalta [Duloxetine] MEDICATIONS Current Outpatient Medications Medication Sig atorvastatin (LIPITOR) 20 mg tablet Take 0.5 tablets by mouth daily at bedtime. For cholesterol. timolol maleate (TIMOPTIC) 0.5 % ophthalmic solution INSTILL 1 DROP IN EACH EYE TWICE DAILY TIMOLOL OPHTHALMIC Use 0.5 Drops in eyes twice daily. One drop in each eye, twice daily. THERAPEUTIC MULTIVITAMIN TAB Take one(1) tablet daily. No current facility-administered medications for this visit. Medications and allergies reviewed by this provider. SOCIAL HISTORY Component Latest Ref Rng AND Units 12/04/2022 12/06/2022 WBC 3.70 - 11.00 k/uL 7.03 RBC 3.90 - 5.20 m/uL 4.68 Hemoglobin 11.5 - 15.5 g/dL 14.4 Hematocrit 36.0 - 46.0 % 43.8 MCV 80.0 - 100.0 fL 93.6 MCH 26.0 - 34.0 pg 30.8 MCHC 30.5 - 36.0 g/dL 32.9 RDW-CV 11.5 - 15.0 % 13.1 Platelet Count 150 - 400 k/uL 303 MPV 9.0 - 12.7 fL 9.9 Neut% % 55.0 Abs Neut (ANC) 1.45 - 7.50 k/uL 3.86 Lymph% % 32.4 Abs Lymph 1.00 - 4.00 k/uL 2.28 Humboldt% % 7.7 Abs [place] <0.87 k/uL 0.54 Eosin% % 4.4 Abs Eosin <0.46 k/uL 0.31 Baso% % 0.4 Abs Baso <0.11 k/uL 0.03 Immature Gran % % 0.1 IMMATURE GRANS (ABS) <0.10 k/uL <0.03 NRBC /100 WBC 0.0 Absolute nRBC <0.01 k/uL <0.01 DTYPE Auto Protein, Total 6.3 - 8.0 g/dL 7.3 Albumin 3.9 - 4.9 g/dL 4.5 Calcium 8.5 - 10.2 mg/dL 9.8 Bilirubin, Total 0.2 - 1.3 mg/dL 0.4 Alkaline Phosphatase 34 - 123 U/L 93 AST 13 - 35 U/L 22 ALT 7 - 38 U/L 17 Glucose 74 - 99 mg/dL 83 BUN 7 - 21 mg/dL 19 Creatinine 0.58 - 0.96 mg/dL 0.78 Sodium 136 - 144 mmol/L 138 Potassium 3.7 - 5.1 mmol/L 4.8 Chloride 97 - 105 mmol/L 102 CO2 22 - 30 mmol/L 25 Anion Gap 9 - 18 mmol/L 11 eGFR >=60 mL/min/1.73mA? 75 TSH 0.270 - 4.200 mIU/L 1.110 REVIEW OF SYSTEMS All other reviewed and negative other than HPI. OBJECTIVE: BP 142/78 Pulse 72 Resp 18 Wt 67.9 kg (149 lb 12.8 oz) SpO2 95% BMI 27.18 kg/m? . Vital signs reviewed by this provider. APPEARANCE Well appearing, alert, in no acute distress, well-hydrated, well nourished. EYES PERRLA, conjunctiva and sclera normal. NECK FROM. Appears she may have some degree of kyphosis. No TTP HEART RRR with normal S1 and S2, no murmurs, no gallops, no JVD appreciated LUNG clear to auscultation. No wheezes, rhonchi or rales EXTREMITIES Extremities normal, No deformities, No skin discoloration, and No edema SKIN Skin color, texture, turgor normal, no suspicious rashes or lesions to exposed skin Shingrix Vaccine(1 of 2) Never done Advance Directive Discussion Never done Depression Assessment Never done Covid-19 Vaccine(4 - Moderna series) due on 02/15/2023 Diabetes Screening due on 12/04/2025 DTaP,Tdap,Td Vaccine(2 - Td or Tdap) due on 03/31/2028 Bone Density Screening Completed Influenza Vaccine Completed Pneumococcal Vaccine: 65+ Completed Fecal Occult Blood Discontinued ASSESSMENT/PLAN: 1. Mixed hyperlipidemia - ICD9: 272.2, ICD10: E78.2 (primary diagnosis) - Controlled - Continue current medications - Counseled on healthy diet and regular exercise - Follow up in 1 year, sooner should any other issues arise. - ATORVASTATIN 20 MG TABLET 2. Weakness of both lower extremities - ICD9: 729.89, ICD10: R29.898 - no red flag symptoms or exam findings - red flag symptoms discussed, verbalizes understanding - continue to use can for ambulation - CONSULT TO PHYSICAL THERAPY - follow-up if symptoms fail to improve 3. Ne (more content not included)... [facility] 12-27-2022 History of Presen t illness Narrative 12/27/2022 Patient presents with: Recheck: Blood pressure SUBJECTIVE: This is a 87 year old that is here today for Above Complaints. BP elevated at last office visit. Patient without hx of HTN. Here for recheck. Would like to get some therapy for her neck. Having hard time raising her neck. Reports she has been looking down a lot sewing and reading. Using some bengay which relaxed it some. Denies past/present neck injury, extremity numbness, tingling or weakness Still feels leg are weak. Ambulating wiht a cane. No falls at home. Admits she does sit and sew and read a lot HYPERLIPIDEMIA: Patient is taking medications: Yes. Patient is watching diet: Yes. Patient denies myalgias: Yes. Patient denies gi upset: Yes PAST MEDICAL HISTORY Diagnosis Date Basal cell carcinoma 10/2017 Dr. Danielson Chronic kidney disease (CKD), stage III (moderate) (HCC) Diverticulosis of colon (without mention of hemorrhage) Diverticulosis Female cystocele [facility] Glaucoma Bilateral, Dr. Danielson Hyperlipidemia Obesity (BMI 30.0-34.9) Personal history of colonic polyps Colon polyps Trace cataracts Unspecified hemorrhoids without mention of complication Hemorrhoids Valvular heart disease mild aortic sclerosis 2008 ALLERGIES Cipro Xr [Ciprofloxacin] and Cymbalta [Duloxetine] MEDICATIONS Current Outpatient Medications Medication Sig atorvastatin (LIPITOR) 20 mg tablet Take 0.5 tablets by mouth daily at bedtime. For cholesterol. timolol maleate (TIMOPTIC) 0.5 % ophthalmic solution INSTILL 1 DROP IN EACH EYE TWICE DAILY TIMOLOL OPHTHALMIC Use 0.5 Drops in eyes twice daily. One drop in each eye, twice daily. THERAPEUTIC MULTIVITAMIN TAB Take one(1) tablet daily. No current facility-administered medications for this visit. Medications and allergies reviewed by this provider. SOCIAL HISTORY Component Latest Ref Rng & Units 12/04/2022 12/06/2022 WBC 3.70 - 11.00 k/uL 7.03 RBC 3.90 - 5.20 m/uL 4.68 Hemoglobin 11.5 - 15.5 g/dL 14.4 Hematocrit 36.0 - 46.0 % 43.8 MCV 80.0 - 100.0 fL 93.6 MCH 26.0 - 34.0 pg 30.8 MCHC 30.5 - 36.0 g/dL 32.9 RDW-CV 11.5 - 15.0 % 13.1 Platelet Count 150 - 400 k/uL 303 MPV 9.0 - 12.7 fL 9.9 Neut% % 55.0 Abs Neut (ANC) 1.45 - 7.50 k/uL 3.86 Lymph% % 32.4 Abs Lymph 1.00 - 4.00 k/uL 2.28 Humboldt% % 7.7 Abs [place] <0.87 k/uL 0.54 Eosin% % 4.4 Abs Eosin <0.46 k/uL 0.31 Baso% % 0.4 Abs Baso <0.11 k/uL 0.03 Immature Gran % % 0.1 IMMATURE GRANS (ABS) <0.10 k/uL <0.03 NRBC /100 WBC 0.0 Absolute nRBC <0.01 k/uL <0.01 DTYPE Auto Protein, Total 6.3 - 8.0 g/dL 7.3 Albumin 3.9 - 4.9 g/dL 4.5 Calcium 8.5 - 10.2 mg/dL 9.8 Bilirubin, Total 0.2 - 1.3 mg/dL 0.4 Alkaline Phosphatase 34 - 123 U/L 93 AST 13 - 35 U/L 22 ALT 7 - 38 U/L 17 Glucose 74 - 99 mg/dL 83 BUN 7 - 21 mg/dL 19 Creatinine 0.58 - 0.96 mg/dL 0.78 Sodium 136 - 144 mmol/L 138 Potassium 3.7 - 5.1 mmol/L 4.8 Chloride 97 - 105 mmol/L 102 CO2 22 - 30 mmol/L 25 Anion Gap 9 - 18 mmol/L 11 eGFR >=60 mL/min/1.73m 75 TSH 0.270 - 4.200 mIU/L 1.110 REVIEW OF SYSTEMS All other reviewed and negative other than HPI. OBJECTIVE: BP 142/78 Pulse 72 Resp 18 Wt 67.9 kg (149 lb 12.8 oz) SpO2 95% BMI 27.18 kg/m . Vital signs reviewed by this provider. APPEARANCE Well appearing, alert, in no acute distress, well-hydrated, well nourished. EYES PERRLA, conjunctiva and sclera normal. NECK FROM. Appears she may have some degree of kyphosis. No TTP HEART RRR with normal S1 and S2, no murmurs, no gallops, no JVD appreciated LUNG clear to auscultation. No wheezes, rhonchi or rales EXTREMITIES Extremities normal, No deformities, No skin discoloration, and No edema SKIN Skin color, texture, turgor normal, no suspicious rashes or lesions to exposed skin Shingrix Vaccine(1 of 2) Never done Advance Directive Discussion Never done Depression Assessment Never done Covid-19 Vaccine(4 - Moderna series) due on 02/15/2023 Diabetes Screening due on 12/04/2025 DTaP,Tdap,Td Vaccine(2 - Td or Tdap) due on 03/31/2028 Bone Density Screening Completed Influenza Vaccine Completed Pneumococcal Vaccine: 65+ Completed Fecal Occult Blood Discontinued ASSESSMENT/PLAN: 1. Mixed hyperlipidemia - ICD9: 272.2, ICD10: E78.2 (primary diagnosis) - Controlled - Continue current medications - Counseled on healthy diet and regular exercise - Follow up in 1 year, sooner should any other issues arise. - ATORVASTATIN 20 MG TABLET 2. Weakness of both lower extremities - ICD9: 729.89, ICD10: R29.898 - no red flag symptoms or exam findings - red flag symptoms discussed, verbalizes understanding - continue to use can for ambulation - CONSULT TO PHYSICAL THERAPY - follow-up if symptoms fail to improve 3. Neck pain - ICD9: 723.1, ICD10: M54.2 - no red flag symptoms or exam findings - red flag symptoms discussed, verbalizes understanding - may continue to use OTC oral and topical pain relievers as directed on packaging. May use heat for 15 minutes at a time. Reminded not to sleep on heating pad - CONSULT TO PHYSICAL THERAPY - follow up if symptoms fail to improve Jane Perez APRN.CNP Prescription instructions reviewed with patient as applicable. Patient advised if symptoms do not improve or if symptoms worsen sooner, to contact their primary care physician. Potential red flag symptoms discussed with the patient. Reviewed appropriate action plan to take if red flag symptoms occur. Patient agreeable to treatment plan. I spent a total of 25 minutes on the date of the service which included preparing to see the patient, [id number] patient care, completing clinical documentation, obtaining and/or reviewing separately obtained history, performing a medically appropriate examination, counseling and educating the patient/family/caregiver, and ordering medications, tests, or procedures. documented in this encounter [facility] 12-10-2022 Miscellaneous Notes Reviewed. Jane Perez APRN.CNP Patient telephoned and notified of results and recommendations. States she will let Jane know regarding other testing and PT at her upcoming BP check. Evie Kc LPN ----- Message from Jane Perez APRN.YASMEEN sent at 12/10/2022 7:13 AM EDT ----- Low risk stress test and normal ECHO. Jane Perez APRN.CNP ----- Message from Jane Perez APRN.CNP sent at 12/09/2022 1:00 PM EDT ----- Labs normal. Chest xray normal. Continue plan as discussed in office. Will await stress test results- if normal would recommend PT. Can do PVR testing for legs if she wishes. Jane Perez APRN.CNP documented in this encounter [facility] 12-10-2022 Miscellaneous Notes Images from the original note were not included. Patient notified of results below. Geneva Garner RN [place] CARDIAC PERF STRESS/PHARM: Result Notes Jane Perez APRN.CNP 12/10/2022 7:13 AM EDT Low risk stress test and normal ECHO. Jane Perez APRN.CNP documented in this encounter [facility] 12-09-2022 Note HNO ID: [id number] Author: Ghada Martinez RN Service: ? Author Type: Registered Nurse Type: Progress Notes Filed: 12/09/2022 12:16 PM Note Text: RADIOLOGY SERVICE PROGRESS NOTE SERVICE DATE: 12/09/2022 SERVICE TIME: 944 PATIENT IDENTITY VERIFICATION COMPLETED USING TWO (2) METHODS: Patient confirmed name and Date of verbally. ALLERGIES AND MEDICATIONS REVIEWED BY: Ghada Martinez RN PROCEDURE TYPE: NM STRESS: 0.4 mg of Lexiscan was administered IV at 1016 over 10 Seconds by Ghada Martinez RN Reversal agent used:none LOT [id number] 06/15 IV SITE: IV palced by nuclear tecnologist POST EXAM PIV STATUS: Discontinued by President [place] PATIENT DISCHARGED TO: Nuclear Medicine Department for post stress imaging A Diagnostic radioactive procedure has taken place, with no further precautions necessary other than routine body substance precautions. More information regarding radiation safety can be found using this link: [email or web address] %[email or web address] %[email or web address]-%20Diagnostic%20Nuclear%20M edicine%20Procedures.pdf SIGNATURE: Ghada Martinez RN PATIENT NAME:Telma Santos DATE: 12/09/22 TIME: 12:16 PM [facility] 12-09-2022 History of Presen t illness Narrative RADIOLOGY SERVICE PROGRESS NOTE SERVICE DATE: 12/09/2022 SERVICE TIME: 944 PATIENT IDENTITY VERIFICATION COMPLETED USING TWO (2) METHODS: Patient confirmed name and Date of verbally. ALLERGIES AND MEDICATIONS REVIEWED BY: Ghada Martinez RN PROCEDURE TYPE: NM STRESS: 0.4 mg of Lexiscan was administered IV at 1016 over 10 Seconds by Ghada Martinez RN Reversal agent used:none LOT [id number] 06/15 IV SITE: IV palced by nuclear tecnologist POST EXAM PIV STATUS: Discontinued by President [place] PATIENT DISCHARGED TO: Nuclear Medicine Department for post stress imaging A Diagnostic radioactive procedure has taken place, with no further precautions necessary other than routine body substance precautions. More information regarding radiation safety can be found using this link: [email or web address] %20Protection%20-%20Diagnostic% 20Nuclear%20Medicine%20Procedur es.pdf SIGNATURE: Ghada Martinez RN PATIENT NAME:Telma Santos DATE: 12/09/22 TIME: 12:16 PM documented in this encounter [facility] 12-09-2022 Note HNO ID: [id number] Author: Itzel Mccray RT(R) Service: Nuclear Medicine Author Type: Technologist Type: Progress Notes Filed: 12/09/2022 3:54 PM Note Text: RADIOLOGY SERVICE PROGRESS NOTE SERVICE DATE: 12/09/2022 SERVICE TIME: 08:40 AM PATIENT IDENTITY VERIFICATION COMPLETED USING TWO (2) STANDARD IDENTIFIERS: Name and Date of confirmed by patient verbally FALL SCREENING: Has the patient had 2 falls in the last year or 1 fall with injury or currently using an Ambulatory Assistive Device (Walker, Cane, Wheelchair, Crutches, etc.)? No PATIENT GENDER DATA: .female : No ALLERGIES: Reviewed and unchanged MEDICATIONS REVIEWED: No PATIENT RELEVANT IMPLANT DATA REVIEWED: Not Applicable CREATININE: Creatinine Date Value Ref Range Status 12/04/2022 0.78 0.58 - 0.96 mg/dL Final 05/31/2021 0.79 0.58 - 0.96 mg/dL Final 07/24/2020 0.75 0.58 - 0.96 mg/dL Final Estimated Glomerular Filtration Rate Date Value Ref Range Status 12/04/2022 75 >=60 mL/min/1.73m? Final Comment: Estimated Glomerular Filtration Rate (eGFR) is calculated using the 2020 CKD-EPI creatinine equation. This equation utilizes serum creatinine, sex, and age as parameters. The creatinine assay has traceable calibration to isotope dilution-mass spectrometry. Refer to KDIGO guidelines for clinical interpretation. In patients with unstable renal function, e.g. those with acute kidney injury, the eGFR may not accurately reflect actual GFR. eGFR- Date Value Ref Range Status 07/24/2020 >60 Final P.O.C.T. RESULTS: N/A December 09, [address] PERFORMED: No IV SITE: Ambulatory: A peripheral IV was started in the Right antecubital site with a Angio cath: 22 gauge. POST EXAM PIV STATUS: Discontinued PROCEDURE TYPE: NM Stress: 12.7 mCi [id number] was administered IV for Rest Imaging at 08:55 by Itzel Mccray. 30.2 mCi [id number] was administered IV for Stress Imaging at 10:16 by Itzel Mccray. ADMINISTRATION TIME: PATIENT DISCHARGED TO: Ambulatory patient, left [place] department area. A Diagnostic radioactive procedure has taken place, with no further precautions necessary other than routine body substance precautions. More information regarding radiation safety can be found using this link: [email or web address] %20Protection %20-%20Diagnostic%20Nuclear%20M edicine%20Procedures.pdf SIGNATURE: RT Phillip(R) PATIENT NAME: Telma Santos DATE: December 09, 2022 TIME: 11:30 AM PAGER/CONTACT #: [facility] 12-09-2022 History of Presen t illness Narrative RADIOLOGY SERVICE PROGRESS NOTE SERVICE DATE: 12/09/2022 SERVICE TIME: 08:40 AM PATIENT IDENTITY VERIFICATION COMPLETED USING TWO (2) STANDARD IDENTIFIERS: Name and Date of confirmed by patient verbally FALL SCREENING: Has the patient had 2 falls in the last year or 1 fall with injury or currently using an Ambulatory Assistive Device (Walker, Cane, Wheelchair, Crutches, etc.)? No PATIENT GENDER DATA: .female : No ALLERGIES: Reviewed and unchanged MEDICATIONS REVIEWED: No PATIENT RELEVANT IMPLANT DATA REVIEWED: Not Applicable CREATININE: Creatinine Date Value Ref Range Status 12/04/2022 0.78 0.58 - 0.96 mg/dL Final 05/31/2021 0.79 0.58 - 0.96 mg/dL Final 07/24/2020 0.75 0.58 - 0.96 mg/dL Final Estimated Glomerular Filtration Rate Date Value Ref Range Status 12/04/2022 75 >=60 mL/min/1.73m Final Comment: Estimated Glomerular Filtration Rate (eGFR) is calculated using the 2020 CKD-EPI creatinine equation. This equation utilizes serum creatinine, sex, and age as parameters. The creatinine assay has traceable calibration to isotope dilution-mass spectrometry. Refer to KDIGO guidelines for clinical interpretation. In patients with unstable renal function, e.g. those with acute kidney injury, the eGFR may not accurately reflect actual GFR. eGFR- Date Value Ref Range Status 07/24/2020 >60 Final P.O.C.T. RESULTS: N/A December 09, [address] PERFORMED: No IV SITE: Ambulatory: A peripheral IV was started in the Right antecubital site with a Angio cath: 22 gauge. POST EXAM PIV STATUS: Discontinued PROCEDURE TYPE: NM Stress: 12.7 mCi [id number]-Plwfboa was administered IV for Rest Imaging at 08:55 by Itzel Mccray. 30.2 mCi [id number]-Kefapkq was administered IV for Stress Imaging at 10:16 by Itzel Mccray. ADMINISTRATION TIME: PATIENT DISCHARGED TO: Ambulatory patient, left [place] department area. A Diagnostic radioactive procedure has taken place, with no further precautions necessary other than routine body substance precautions. More information regarding radiation safety can be found using this link: [email or web address] %20Protection%20-%20Diagnostic% 20Nuclear%20Medicine%20Procedur es.pdf SIGNATURE: ILYA Fisher) PATIENT NAME: Telma Santos DATE: December 09, 2022 TIME: 11:30 AM PAGER/CONTACT #: documented in this encounter [facility] 12-05-2022 Miscellaneous Notes Pot advised of message below. Pt is going to try to come into the lab today. Bp f/u appointment scheduled at this time. Pt aware of same. Melinda Helm LPN Left message with to have patient return call for provider message. Patient needs to come back in for BP check, also forgot to put TSH order in so will need to have that completed as well. Jane Perez APRN.YASMEEN documented in this encounter [facility] 12-04-2022 Note HNO ID: [id number] Author: Kelley Watt RT(R) Service: Radiology Author Type: Technologist Type: Progress Notes Filed: 12/04/2022 3:29 PM Note Text: Radiology Service Progress Note PATIENT NAME: Telma Santos DATE OF SERVICE: December 04, 2022 TIME: 3:19 PM PATIENT IDENTITY VERIFICATION COMPLETED USING TWO (2) IDENTIFIERS: Name and Date of confirmed by patient verbally. FALL SCREENING: Has the patient had 2 falls in the last year or 1 fall with injury or currently using an Ambulatory Assistive Device (Walker, Cane, Wheelchair, Crutches, etc.)? Yes, Patient High Risk for Falls What interventions were put in place to prevent falls during this visit? Instructed Patient to Call for Help if Needed, Offered Assistance with Transfers/Clothing, and Increased Observations by Caregivers PATIENT GENDER DATA: Female. status: : No status: NO. PATIENT RELEVANT IMPLANT DATA REVIEWED: Yes RADIOLOGY DEPARTMENT: General X-ray: Exam(s) Completed: Chest X-Ray PERIPHERAL IV DATA: Not applicable SIGNED BY: RT Susan(R) December 04, 2022 3:19 PM [facility] 12-04-2022 Note HNO ID: [id number] Author: Jane Perez APRN.COUNTER SALES REPRESENTATIVE Service: ? Author Type: Nurse Practitioner Type: Progress Notes Filed: 12/04/2022 7:40 PM Note Text: 12/04/2022 Patient presents with: Shortness of Breath: With walking; experiences weak leg muscles if up too long. SUBJECTIVE: This is a 86 year old that is here today for Above Complaints. Reports difficulty breathing with her normal tasks at home, easily fatigued. Feels her muscles are weak in her legs if she stands to long. Uses a walker or cane. No recent falls. Has to sit down and catch her breath in between doing things. Denies weight loss/gain, dizziness, lightheadedness, orthopnea, wheezing, cough, chest pain, palpitations, leg swelling, abdominal pain, hematochezia or melana PAST MEDICAL HISTORY Diagnosis Date Basal cell carcinoma 10/2017 Dr. Danielson Chronic kidney disease (CKD), stage III (moderate) (HCC) Diverticulosis of colon (without mention of hemorrhage) Diverticulosis Female cystocele [facility] Glaucoma Bilateral, Dr. Danielson Hyperlipidemia Obesity (BMI 30.0-34.9) Personal history of colonic polyps Colon polyps Trace cataracts Unspecified hemorrhoids without mention of complication Hemorrhoids Valvular heart disease mild aortic sclerosis 2008 ALLERGIES Cipro Xr [Ciprofloxacin] and Cymbalta [Duloxetine] MEDICATIONS Current Outpatient Medications Medication Sig atorvastatin (LIPITOR) 20 mg tablet Take 0.5 tablets by mouth daily at bedtime. For cholesterol. timolol maleate (TIMOPTIC) 0.5 % ophthalmic solution INSTILL 1 DROP IN EACH EYE TWICE DAILY TIMOLOL OPHTHALMIC Use 0.5 Drops in eyes twice daily. One drop in each eye, twice daily. estradiol (ESTRACE) 0.01 % (0.1 mg/gram) vaginal cream Use small amount at vaginal opening once a week (Patient not taking: Reported on 01/02/2021 ) THERAPEUTIC MULTIVITAMIN TAB Take one(1) tablet daily. No current facility-administered medications for this visit. Medications and allergies reviewed by this provider. SOCIAL HISTORY Social History Tobacco Use Smoking status: Never Smokeless tobacco: Never Vaping Use Vaping Use: Never used Substance Use Topics Alcohol use: No Drug use: No REVIEW OF SYSTEMS All other reviewed and negative other than HPI. OBJECTIVE: BP 182/84 Pulse 71 Resp 20 Wt 68.9 kg (152 lb) SpO2 98% BMI 27.58 kg/m? . Vital signs reviewed by this provider. APPEARANCE Well appearing, alert, in no acute distress, well-hydrated, well nourished. EYES PERRLA, conjunctiva and sclera normal. HEART RRR with normal S1 and S2, no murmurs, no gallops, no JVD appreciated LUNG clear to auscultation. No wheezes, rhonchi or rales EXTREMITIES Extremities normal, No deformities, No skin discoloration, No edema, and Normal pulses bilaterally. SKIN Skin color, texture, turgor normal, no suspicious rashes or lesions to exposed skin Shingrix Vaccine(1 of 2) Never done Covid-19 Vaccine(4 - Moderna series) due on 05/07/2021 Advance Directive Discussion Never done Depression Assessment Never done Influenza Vaccine(1) due on 11/22/2022 Diabetes Screening due on 05/31/2024 DTaP,Tdap,Td Vaccine(2 - Td or Tdap) due on 03/31/2028 Bone Density Screening Completed Pneumococcal Vaccine: 65+ Completed Fecal Occult Blood Discontinued ASSESSMENT/PLAN: 1. Dyspnea on exertion - ICD9: 786.09, ICD10: R06.09 (primary diagnosis) - no red flag symptoms or exam findings - red flag symptoms discussed, verbalizes understanding - ECG COMPLETE - CBC + DIFF - COMP METABOLIC PANEL - XR CHEST 2V FRONTAL/LAT - NM CARDIAC PERF STRESS/PHARM- unable to run on treadmill uses walker and cane - ECG COMPLETE - follow-up pending testing to ER with red flag symptoms 2. Valvular heart disease - ICD9: 424.90, ICD10: I38 - plan as in #1 - ECG COMPLETE EKG Interpretation: RHYTHM: Normal sinus rhythm at 59 beats per minute and possible left atrial enlargement AXIS: Normal axis INTERVALS: Normal LA interval QRS COMPLEX: incomplete RBBB ST SEGMENT: Normal ST-T segments QT INTERVAL: Normal COMPARED WITH PRIOR: None available - CBC + DIFF - COMP METABOLIC PANEL - ECHO - PERFLUTREN LIPID MICROSPHERES 1.1 MG/ML INJECTION IN NS 10 ML - SODIUM CHLORIDE 0.9 % (FLUSH) INJECTION SYRINGE - NM CARDIAC PERF STRESS/PHARM - REGADENOSON 0.4 MG/5 ML INTRAVENOUS SYRINGE - AMINOPHYLLINE 250 MG/10 ML INTRAVENOUS SOLUTION - METOPROLOL TARTRATE 5 MG/5 ML INTRAVENOUS SOLUTION 3. Aching leg syndrome, unspecified laterality - ICD9: 729.5, ICD10: M79.606 - discussed PVR studies- declines at this time - legs and pulse normal on exam and she has complained of this in the past 4. Weakness of both lower extremities - ICD9: 729.89, ICD10: R29.898 - plan as in #3 - may consider PT after cardiac testing 5. Fatigue, unspecified type - ICD9: 780.79, ICD10: R53.83 - plan as above - TSH SHASHAD Jane Perez, DIRECTOR OF REAL ESTATE.COUNTER SALES REPRESENTATIVE [facility] (more content not included)... [facility] 12-04-2022 History of Presen t illness Narrative 12/04/2022 Patient presents with: Shortness of Breath: With walking; experiences weak leg muscles if up too long. SUBJECTIVE: This is a 86 year old that is here today for Above Complaints. Reports difficulty breathing with her normal tasks at home, easily fatigued. Feels her muscles are weak in her legs if she stands to long. Uses a walker or cane. No recent falls. Has to sit down and catch her breath in between doing things. Denies weight loss/gain, dizziness, lightheadedness, orthopnea, wheezing, cough, chest pain, palpitations, leg swelling, abdominal pain, hematochezia or melana PAST MEDICAL HISTORY Diagnosis Date Basal cell carcinoma 10/2017 Dr. Danielson Chronic kidney disease (CKD), stage III (moderate) (HCC) Diverticulosis of colon (without mention of hemorrhage) Diverticulosis Female cystocele [facility] Glaucoma Bilateral, Dr. Danielson Hyperlipidemia Obesity (BMI 30.0-34.9) Personal history of colonic polyps Colon polyps Trace cataracts Unspecified hemorrhoids without mention of complication Hemorrhoids Valvular heart disease mild aortic sclerosis 2008 ALLERGIES Cipro Xr [Ciprofloxacin] and Cymbalta [Duloxetine] MEDICATIONS Current Outpatient Medications Medication Sig atorvastatin (LIPITOR) 20 mg tablet Take 0.5 tablets by mouth daily at bedtime. For cholesterol. timolol maleate (TIMOPTIC) 0.5 % ophthalmic solution INSTILL 1 DROP IN EACH EYE TWICE DAILY TIMOLOL OPHTHALMIC Use 0.5 Drops in eyes twice daily. One drop in each eye, twice daily. estradiol (ESTRACE) 0.01 % (0.1 mg/gram) vaginal cream Use small amount at vaginal opening once a week (Patient not taking: Reported on 01/02/2021 ) THERAPEUTIC MULTIVITAMIN TAB Take one(1) tablet daily. No current facility-administered medications for this visit. Medications and allergies reviewed by this provider. SOCIAL HISTORY Social History Tobacco Use Smoking status: Never Smokeless tobacco: Never Vaping Use Vaping Use: Never used Substance Use Topics Alcohol use: No Drug use: No REVIEW OF SYSTEMS All other reviewed and negative other than HPI. OBJECTIVE: BP 182/84 Pulse 71 Resp 20 Wt 68.9 kg (152 lb) SpO2 98% BMI 27.58 kg/m . Vital signs reviewed by this provider. APPEARANCE Well appearing, alert, in no acute distress, well-hydrated, well nourished. EYES PERRLA, conjunctiva and sclera normal. HEART RRR with normal S1 and S2, no murmurs, no gallops, no JVD appreciated LUNG clear to auscultation. No wheezes, rhonchi or rales EXTREMITIES Extremities normal, No deformities, No skin discoloration, No edema, and Normal pulses bilaterally. SKIN Skin color, texture, turgor normal, no suspicious rashes or lesions to exposed skin Shingrix Vaccine(1 of 2) Never done Covid-19 Vaccine(4 - Moderna series) due on 05/07/2021 Advance Directive Discussion Never done Depression Assessment Never done Influenza Vaccine(1) due on 11/22/2022 Diabetes Screening due on 05/31/2024 DTaP,Tdap,Td Vaccine(2 - Td or Tdap) due on 03/31/2028 Bone Density Screening Completed Pneumococcal Vaccine: 65+ Completed Fecal Occult Blood Discontinued ASSESSMENT/PLAN: 1. Dyspnea on exertion - ICD9: 786.09, ICD10: R06.09 (primary diagnosis) - no red flag symptoms or exam findings - red flag symptoms discussed, verbalizes understanding - ECG COMPLETE - CBC + DIFF - COMP METABOLIC PANEL - XR CHEST 2V FRONTAL/LAT - NM CARDIAC PERF STRESS/PHARM- unable to run on treadmill uses walker and cane - ECG COMPLETE - follow-up pending testing to ER with red flag symptoms 2. Valvular heart disease - ICD9: 424.90, ICD10: I38 - plan as in #1 - ECG COMPLETE EKG Interpretation: RHYTHM: Normal sinus rhythm at 59 beats per minute and possible left atrial enlargement AXIS: Normal axis INTERVALS: Normal LA interval QRS COMPLEX: incomplete RBBB ST SEGMENT: Normal ST-T segments QT INTERVAL: Normal COMPARED WITH PRIOR: None available - CBC + DIFF - COMP METABOLIC PANEL - ECHO - PERFLUTREN LIPID MICROSPHERES 1.1 MG/ML INJECTION IN NS 10 ML - SODIUM CHLORIDE 0.9 % (FLUSH) INJECTION SYRINGE - NM CARDIAC PERF STRESS/PHARM - REGADENOSON 0.4 MG/5 ML INTRAVENOUS SYRINGE - AMINOPHYLLINE 250 MG/10 ML INTRAVENOUS SOLUTION - METOPROLOL TARTRATE 5 MG/5 ML INTRAVENOUS SOLUTION 3. Aching leg syndrome, unspecified laterality - ICD9: 729.5, ICD10: M79.606 - discussed PVR studies- declines at this time - legs and pulse normal on exam and she has complained of this in the past 4. Weakness of both lower extremities - ICD9: 729.89, ICD10: R29.898 - plan as in #3 - may consider PT after cardiac testing 5. Fatigue, unspecified type - ICD9: 780.79, ICD10: R53.83 - plan as above - TSH BLD Jane Perez APRN.COUNTER SALES REPRESENTATIVE Prescription instructions reviewed with patient as applicable. Patient advised if symptoms do not improve or if symptoms worsen sooner, to contact their primary care physician. Potential red flag symptoms discussed with the patient. Reviewed appropriate action plan to take if red flag symptoms occur. Patient agreeable to treatment plan. I spent a total of 35 minutes on the date of the service which included preparing to see the patient, [id number] patient care, completing clinical documentation, obtaining and/or reviewing separately obtained history, performing a medically appropriate examination, counseling and educating the patient/family/caregiver, and ordering medications, tests, or procedures. documented in this encounter [facility] 05-28-2022 Miscellaneous Notes Patient notified and verbalized understanding. Gretchen Wolff MA We typically stop mammograms at 75. I would discuss additional imaging with patient before placing another order. Patient calling stating she received letter for mammogram. Patient asking if she still needs to have this done, if so, please place order and call patient. documented in this encounter [facility] 03-26-2022 Miscellaneous Notes Patient phones requesting refills as follows: Requested Prescriptions Pending Prescriptions Disp Refills atorvastatin (LIPITOR) 20 mg tablet 90 tablet 1 Sig: Take 0.5 tablets by mouth daily at bedtime. For cholesterol. FABIAN 12/17/21 No upcoming appointment scheduled. Patient wondering if there is another medication that may not be as much that you could put her on instead. Please review and advise. Evie Kc LPN' documented in this encounter [facility] 12-17-2021 History of Presen t illness Narrative 12/17/2021 Patient presents with: Follow Up SUBJECTIVE: This is a 85 year old that is here today for Above Complaints. Reports has a fat pocket below her left knee which has been there for over 10 years. Recently had some aching pain in it. Reports years ago told it was a fat pocket and she had an xray completed. ( See xray below) Since she made appointment her pain has gotten better. Reports she intermittently has pain to this are. Denies fevers, chills, redness, excessive warmth, tenderness or open wounds. IMPRESSION: As above Cigar Wrapper Tender Automatic: HARPREET Transcribe Date/Time: Aug 12 2014 4:19P Dictated by : JESUS MCINTYRE MD This examination was interpreted and the report reviewed and electronically signed by: JESUS MCINTYRE MD On Aug 12 2014 4:19PM Results-Findings * * *Final Report* * * DATE OF EXAM: Aug 12 2014 2:52PM WOX [id number] - XR TIBIA FIBULA AP/LAT - LEFT / PROCEDURE REASON: Localized superficial swelling, mass, or lump * * * * Physician Interpretation * * * * RESULT: History: Localized superficial swelling, no injury Findings: AP and lateral views of the left lower leg have been obtained. There is irregular radiopaque density, possibly calcification lying anterior to the tibial tuberosity with adjacent soft tissue swelling of unknown etiology. Findings may be related to prior injury. Clinical correlation is needed. Remaining structures appear within normal limits. PAST MEDICAL HISTORY Diagnosis Date Basal cell carcinoma 10/2017 Dr. Danielson Chronic kidney disease (CKD), stage III (moderate) (HCC) Diverticulosis of colon (without mention of hemorrhage) Diverticulosis Female cystocele [facility] Glaucoma Bilateral, Dr. Danielson Hyperlipidemia Obesity (BMI 30.0-34.9) Personal history of colonic polyps Colon polyps Trace cataracts Unspecified hemorrhoids without mention of complication Hemorrhoids Valvular heart disease mild aortic sclerosis 2008 ALLERGIES Cipro Xr [Ciprofloxacin] and Cymbalta [Duloxetine] MEDICATIONS Current Outpatient Medications Medication Sig atorvastatin (LIPITOR) 20 mg tablet Take 0.5 tablets by mouth daily at bedtime. For cholesterol. timolol maleate (TIMOPTIC) 0.5 % ophthalmic solution INSTILL 1 DROP IN EACH EYE TWICE DAILY TIMOLOL OPHTHALMIC Use 0.5 Drops in eyes twice daily. One drop in each eye, twice daily. estradiol (ESTRACE) 0.01 % (0.1 mg/gram) vaginal cream Use small amount at vaginal opening once a week (Patient not taking: Reported on 01/02/2021 ) THERAPEUTIC MULTIVITAMIN TAB Take one(1) tablet daily. No current facility-administered medications for this visit. Medications and allergies reviewed by this provider. SOCIAL HISTORY Social History Tobacco Use Smoking status: Never Smokeless tobacco: Never Vaping Use Vaping Use: Never used Substance Use Topics Alcohol use: No Drug use: No REVIEW OF SYSTEMS All other reviewed and negative other than HPI. OBJECTIVE: BP 142/82 Pulse 68 Resp 16 Wt 73.3 kg (161 lb 9.6 oz) SpO2 96% BMI 29.32 kg/m . Vital signs reviewed by this provider. APPEARANCE Well appearing, alert, in no acute distress, well-hydrated, well nourished. EYES conjunctiva and sclera normal. LEFT KNEE: area at the tibial tuberosity with large soft mass, somewhat firm in the center. No surrounding erythema, excessive warmth, tenderness or open wounds to area SHINGRIX VACCINE(1 of 2) Never done FECAL OCCULT BLOOD due on 11/19/2018 ADVANCE DIRECTIVE DISCUSSION Never done COVID-19 VACCINE(4 - Booster for Moderna series) due on 05/07/2021 INFLUENZA(1) due on 11/22/2021 DIABETES SCREEN due on 05/31/2024 DTAP,TDAP,TD(2 - Td or Tdap) due on 03/31/2028 BONE DENSITY Completed PNEUMOCOCCAL: 65+ Completed ASSESSMENT/PLAN: 1. Subcutaneous mass of left lower leg - ICD9: 782.2, ICD10: R22.42 - chronic - no red flag symptoms or exam findings - red flag symptoms discussed, verbalizes understanding - declined ultrasound of area - follow-up as needed to ER with red flag symptoms Jane Podlogernestina, DIRECTOR OF REAL ESTATE.COUNTER SALES REPRESENTATIVE Prescription instructions reviewed with patient as applicable. Patient advised if symptoms do not improve or if symptoms worsen sooner, to contact their primary care physician. Potential red flag symptoms discussed with the patient. Reviewed appropriate action plan to take if red flag symptoms occur. Patient agreeable to treatment plan. I spent a total of 23 minutes on the date of the service which included preparing to see the patient, [id number] patient care, completing clinical documentation, obtaining and/or reviewing separately obtained history, performing a medically appropriate examination, counseling and educating the patient/family/caregiver, and ordering medications, tests, or procedures. documented in this encounter [facility] 08-14-2021 History of Presen t illness Narrative Episode Visit Count: 3 Therapist That Will Oversee The Plan Of Care: Keke Lauren Start of Care Date: 07/31/21 Onset Date: 08/01/19 Plan of Care Certification Date: 07/31/21 Next Certification Due Date: 09/30/21 REHABILITATION AND SPORTS THERAPY PHYSICAL THERAPY TREATMENT NOTE ASSESSMENT: Telma Santos tolerated the session with fatigue. She demonstrated improvements in leg pain and tolerance for sit to stand mobility at home. The patient will continue to benefit from ongoing skilled physical therapy to progress toward set goals. PLAN FOR NEXT VISIT: continue BLE exercise progression SUBJECTIVE: Patient Reason for Visit: Pt doing well today. Notes she is feeling stronger and her legs are aching less Pain: Pain Pain Level: 2 Pain Location: Leg - Left;Leg - Right Description: Aching Frequency: Intermittent OBJECTIVE MEASURES WITH LEVEL OF FUNCTION: TREATMENT: Therapeutic Exercise: 1: SciFit setting 11 x7 min 2: SL hip abduction 2x12/side 3: SLR 2x12/side 4: Pillow adduction squeeze 2x10, 5 sec holds 5: Bridging 2x10 6: Hooklying YTB hip abduction 2x10 (HEP: seated hip abduction isometrics 2x10/side 5 sec holds) 7: Step ups onto 1 blue step 2x10/side 8: Calf raises 2x20 Skilled Intervention: Patient was educated in proper exercise technique and purpose for exercises. Skilled judgment was provided in selection of appropriate interventions. Provided written instruction for home exercise program to facilitate proper performance and compliance. Correct performance of therapeutic exercises was facilitated with verbal, visual and tactile cuing. Billing Therapeutic Exercise Treatment Minutes: 41 Total Treatment Time Minutes (timed/untimed): 41 Keke Lauren PT documented in this encounter [facility] 08-09-2021 History of Presen t illness Narrative Episode Visit Count: 2 Therapist That Will Oversee The Plan Of Care: Keke Lauren Start of Care Date: 07/31/21 Onset Date: 08/01/19 Plan of Care Certification Date: 07/31/21 Next Certification Due Date: 09/30/21 REHABILITATION AND SPORTS THERAPY PHYSICAL THERAPY TREATMENT NOTE ASSESSMENT: Telma Santos tolerated the session with fatigue and no issues. She demonstrated improvements in STS as she required no upper extremity assistance with her second set today.. The patient will continue to benefit from ongoing skilled physical therapy to progress toward set goals. PLAN FOR NEXT VISIT: May try step ups SUBJECTIVE: Patient Reason for Visit: Pt felt exercises went well. She tried a nerve medication for the aching in the legs and it caused bad side effects, so she ceased this immediately Pain: Pain Pain Level: 5 Pain Location: Leg - Left;Leg - Right Description: Aching;Sore Frequency: Intermittent OBJECTIVE MEASURES WITH LEVEL OF FUNCTION: TREATMENT: Therapeutic Exercise: 1: SciFit setting 11 x5 min 2: SL hip abduction 2x10/side 3: SLR 2x10/side 4: Calf raises 2x20 5: Pillow adduction squeeze 2x10, 5 sec holds 6: STS 2x10 (1 set with 1UE support, 1 set no UE support) 7: *Bridging 2x10 Skilled Intervention: Patient was educated in proper exercise technique and purpose for exercises. Skilled judgment was provided in selection of appropriate interventions. Provided written instruction for home exercise program to facilitate proper performance and compliance. Correct performance of therapeutic exercises was facilitated with verbal, visual and tactile cuing. Billing Therapeutic Exercise Treatment Minutes: 38 Total Treatment Time Minutes (timed/untimed): 38 Keke Lauren PT documented in this encounter [facility] 07-30-2021 Miscellaneous Notes Patient is scheduled 07/31 I have placed order for PT. Please let patient know she can schedule at her convenience. Jane Perez APRN.CNP Patient asking Gas Regulator Repairer Helper to please place order for her to go to PT for her legs. Reports she has been having trouble with her legs for some time, and has discussed with pcp. Lately it is getting harder to walk. Pain is mostly at night and takes XS tylenol and magnesium at night to help with this. Recently started taking CO Q 10 to see if it helps (has only taken 2 days now). documented in this encounter [facility] 06-11-2021 Miscellaneous Notes Pt notified of results and provider message. Ally Alberts LPN Called and left message on patients voicemail to return call to the office and ask to speak with a triage nurse. Yary Roque Ma Please call patient and let her know her mammogram shows there is no mammographic evidence of malignancy. A 1 year screening mammogram is recommended. Jane Perez APRN.CNP documented in this encounter [facility] 06-11-2021 Miscellaneous Notes June 11, 2021 PID: [id number] Telma Santos [address] [place] [address] Dear Ms. Santos, We are pleased to inform you that the results of your recent breast imaging exam on 06/11/2021 are normal. Early detection of cancer is very important. We also understand recommendations regarding breast cancer screening are controversial. Please discuss with your primary care provider which strategy is best for you and whether a mammogram is right for you. Your imaging studies and report will be kept on file at [facility] as part of your permanent medical record and are available for your continuing care. Thank you for allowing us to help in meeting your health care needs. Sincerely, Dr. Hoover Interpreting Radiologist [facility] (Normal over 40) documented in this encounter [facility] 06-11-2021 History of Presen t illness Narrative Radiology Service Progress Note PATIENT NAME: Telma Santos DATE OF SERVICE: June 11, 2021 TIME: 10:20 AM PATIENT IDENTITY VERIFICATION COMPLETED USING TWO (2) IDENTIFIERS: Name and Date of confirmed by patient verbally. FALL SCREENING: Has the patient had 2 falls in the last year or 1 fall with injury or currently using an Ambulatory Assistive Device (Walker, Cane, Wheelchair, Crutches, etc.)? No PATIENT GENDER DATA: Female. status: : No status: NO. PATIENT RELEVANT IMPLANT DATA REVIEWED: Not Applicable RADIOLOGY DEPARTMENT: Mammography PERIPHERAL IV DATA: Not applicable SIGNED BY: Daniel Hanna June 11, 2021 10:20 AM documented in this encounter [facility] documented as of this encounter (statuses as of 06/11/2021) [facility]05-[facility]2016 History of Past illness Narrative* Problem Noted Date Resolved Date Encounter for gynecological examination without abnormal finding 08/04/2015 11/18/2017 Overview: [facility] Well adult exam 08/04/2015 11/18/2017 Overview: Last done: 08/04/2015 Colon cancer screening 08/04/2015 8 documented as of this encounter (statuses as of 06/12/2021) [facility] History of Past illness Narrative* Problem Noted Date Resolved Date Encounter for gynecological examination without abnormal finding 08/04/2015 11/18/2017 Overview: [facility] Well adult exam 08/04/2015 11/18/2017 Overview: Last done: 08/04/2015 Colon cancer screening 08/04/2015 8 documented as of this encounter (statuses as of 06/13/2021) [facility] History of Past illness Narrative* Problem Noted Date Resolved Date Encounter for gynecological examination without abnormal finding 08/04/2015 11/18/2017 Overview: [facility] Well adult exam 08/04/2015 11/18/2017 Overview: Last done: 08/04/2015 Colon cancer screening 08/04/2015 8 documented as of this encounter (statuses as of 07/30/2021) [facility] History of Past illness Narrative* Problem Noted Date Resolved Date Encounter for gynecological examination without abnormal finding 08/04/2015 11/18/2017 Overview: [facility] Well adult exam 08/04/2015 11/18/2017 Overview: Last done: 08/04/2015 Colon cancer screening 08/04/2015 8 documented as of this encounter (statuses as of 08/09/2021) [facility] History of Past illness Narrative* Problem Noted Date Resolved Date Encounter for gynecological examination without abnormal finding 08/04/2015 11/18/2017 Overview: [facility] Well adult exam 08/04/2015 11/18/2017 Overview: Last done: 08/04/2015 Colon cancer screening 08/04/2015 8 documented as of this encounter (statuses as of 08/14/2021) [facility] History of Past illness Narrative* Problem Noted Date Resolved Date Encounter for gynecological examination without abnormal finding 08/04/2015 11/18/2017 Overview: [facility] Well adult exam 08/04/2015 11/18/2017 Overview: Last done: 08/04/2015 Colon cancer screening 08/04/2015 8 documented as of this encounter (statuses as of 12/17/2021) [facility] History of Past illness Narrative* Problem Noted Date Resolved Date Encounter for gynecological examination without abnormal finding 08/04/2015 11/18/2017 Overview: [facility] Well adult exam 08/04/2015 11/18/2017 Overview: Last done: 08/04/2015 Colon cancer screening 08/04/2015 8 documented as of this encounter (statuses as of 12/26/2021) [facility] History of Past illness Narrative* Problem Noted Date Resolved Date Encounter for gynecological examination without abnormal finding 08/04/2015 11/18/2017 Overview: [facility] Well adult exam 08/04/2015 11/18/2017 Overview: Last done: 08/04/2015 Colon cancer screening 08/04/2015 8 documented as of this encounter (statuses as of 03/28/2022) [facility] History of Past illness Narrative* Problem Noted Date Resolved Date Encounter for gynecological examination without abnormal finding 08/04/2015 11/18/2017 Overview: [facility] Well adult exam 08/04/2015 11/18/2017 Overview: Last done: 08/04/2015 Colon cancer screening 08/04/2015 8 documented as of this encounter (statuses as of 05/29/2022) [facility] History of Past illness Narrative* Problem Noted Date Diagnosed Date Resolved Date Encounter for gynecological examination without abnormal finding 08/04/2015 11/18/2017 Overview: [facility] Well adult exam 08/04/2015 11/18/2017 Overview: Last done: 08/04/2015 Colon cancer screening 08/04/201511/18 documented as of this encounter (statuses as of 12/05/2022) [facility] History of Past illness Narrative* Problem Noted Date Diagnosed Date Resolved Date Encounter for gynecological examination without abnormal finding 08/04/2015 11/18/2017 Overview: [facility] Well adult exam 08/04/2015 11/18/2017 Overview: Last done: 08/04/2015 Colon cancer screening 08/04/201511/18 documented as of this encounter (statuses as of 12/05/2022) [facility] History of Past illness Narrative* Problem Noted Date Diagnosed Date Resolved Date Encounter for gynecological examination without abnormal finding 08/04/2015 11/18/2017 Overview: [facility] adult exam 08/04/2015 11/18/2017 Overview: Last done: 08/04/2015 Colon cancer screening 08/04/201511/18 documented as of this encounter (statuses as of 12/09/2022) [facility] History of Past illness Narrative* Problem Noted Date Diagnosed Date Resolved Date Encounter for gynecological examination without abnormal finding 08/04/2015 11/18/2017 Overview: [facility] Well adult exam 08/04/2015 11/18/2017 Overview: Last done: 08/04/2015 Colon cancer screening 08/04/201511/18 documented as of this encounter (statuses as of 12/10/2022) [facility] History of Past illness Narrative* Problem Noted Date Diagnosed Date Resolved Date Encounter for gynecological examination without abnormal finding 08/04/2015 11/18/2017 Overview: [facility] adult exam 08/04/2015 11/18/2017 Overview: Last done: 08/04/2015 Colon cancer screening 08/04/201511/18 documented as of this encounter (statuses as of 12/16/2022) [facility] History of Past illness Narrative* Problem Noted Date Diagnosed Date Resolved Date Encounter for gynecological examination without abnormal finding 08/04/2015 11/18/2017 Overview: [facility] adult exam 08/04/2015 11/18/2017 Overview: Last done: 08/04/2015 Colon cancer screening 08/04/201511/18 documented as of this encounter (statuses as of 12/21/2022) [facility] History of Past illness Narrative* Problem Noted Date Diagnosed Date Resolved Date Encounter for gynecological examination without abnormal finding 08/04/2015 11/18/2017 Overview: [facility] adult exam 08/04/2015 11/18/2017 Overview: Last done: 08/04/2015 Colon cancer screening 08/04/201511/18 documented as of this encounter (statuses as of 12/28/2022) [facility] History of Past illness Narrative* Problem Noted Date Diagnosed Date Resolved Date Encounter for gynecological examination without abnormal finding 08/04/2015 11/18/2017 Overview: [facility] adult exam 08/04/2015 11/18/2017 Overview: Last done: 08/04/2015 Colon cancer screening 08/04/201511/18 documented as of this encounter (statuses as of 01/02/2023) [facility] History of Past illness Narrative* Problem Noted Date Diagnosed Date Resolved Date Encounter for gynecological examination without abnormal finding 08/04/2015 11/18/2017 Overview: [facility] adult exam 08/04/2015 11/18/2017 Overview: Last done: 08/04/2015 Colon cancer screening 08/04/201511/18 documented as of this encounter (statuses as of 01/10/2023) [facility] History of Past illness Narrative* Problem Noted Date Diagnosed Date Resolved Date Encounter for gynecological examination without abnormal finding 08/04/2015 11/18/2017 Overview: [facility] adult exam 08/04/2015 11/18/2017 Overview: Last done: 08/04/2015 Colon cancer screening 08/04/201511/18 documented as of this encounter (statuses as of 01/16/2023) [facility] History of Past illness Narrative* Problem Noted Date Diagnosed Date Resolved Date Encounter for gynecological examination without abnormal finding 08/04/2015 11/18/2017 Overview: [facility] Well adult exam 08/04/2015 11/18/2017 Overview: Last done: 08/04/2015 Colon cancer screening 08/04/201511/18 documented as of this encounter (statuses as of 01/21/2023) [facility] History of Past illness Narrative* Problem Noted Date Diagnosed Date Resolved Date Encounter for gynecological examination without abnormal finding 08/04/2015 11/18/2017 Overview: [facility] Well adult exam 08/04/2015 11/18/2017 Overview: Last done: 08/04/2015 Colon cancer screening 08/04/201511/18 documented as of this encounter (statuses as of 01/26/2023) [facility] History of Past illness Narrative* Problem Noted Date Diagnosed Date Resolved Date Encounter for gynecological examination without abnormal finding 08/04/2015 11/18/2017 Overview: [facility] adult exam 08/04/2015 11/18/2017 Overview: Last done: 08/04/2015 Colon cancer screening 08/04/201511/18 documented as of this encounter (statuses as of 01/26/2023) [facility] History of Past illness Narrative* Problem Noted Date Diagnosed Date Resolved Date Encounter for gynecological examination without abnormal finding 08/04/2015 11/18/2017 Overview: [facility] adult exam 08/04/2015 11/18/2017 Overview: Last done: 08/04/2015 Colon cancer screening 08/04/201511/18 documented as of this encounter (statuses as of 01/31/2023) [facility] Diagnosis Encounter for screening mammogram for malignant neoplasm of breast Other screening mammogram documented in this encounter [facility] Diagnosis Aching leg syndrome, 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[facility] Diagnosis Aching leg syndrome, 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Primary [facility]* Diagnosis Aching leg syndrome, 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Primary [facility] this encounter [facility]* Diagnosis Subcutaneous mass of left lower leg- [facility] Diagnosis Mixed hyperlipidemia [facility] this [facility] Diagnosis Dyspnea on exertion- Primary Other dyspnea and respiratory abnormality Valvular heart disease Endocarditis, valve unspecified, unspecified cause Aching leg syndrome, unspecified laterality Weakness of both lower extremities Fatigue, unspecified type documented in this encounter [facility]* Diagnosis Screening for ischemic heart disease- Primary [facility] this [facility]* Diagnosis Mixed hyperlipidemia- Primary Weakness of both lower extremities Neck pain Cervicalgia [facility] Diagnosis Weakness of both lower extremities- Primary Neck pain Cervicalgia [facility] Diagnosis Weakness of both lower extremities- Primary Neck pain Cervicalgia documented in this [facility]* Diagnosis Valvular heart disease Endocarditis, valve unspecified, unspecified cause Dyspnea on exertion Other dyspnea and respiratory abnormality documented in this encounter [facility]* Diagnosis Weakness of both lower extremities- Primary Neck pain Cervicalgia documented in this encounter [facility] for referral (narrative)* Diagnostic Procedure Only (Routine) - Closed Specialty Diagnoses / Procedures Referred By Lucy whiteside Referred To Contact [facility] Diagnoses Encounter for screening mammogram for malignant neoplasm of breast Procedures EMILY SCREENING SCREENING MAMMOGRAPHY BI 2-VIEW BREAST INC CAD PodlogJane do APRN.COUNTER SALES REPRESENTATIVE [address] [place] [address] [facility] [address] [place] [address] Referral ID Status Reason Start Date Expiration Date V isits Requested Visits Authorized [id number] Closed Auto-Generate d Referral 05/22/2021 06/21/2022 1 1 [facility] for referral (narrative)* Outpatient Procedure (Routine) - Closed Specialty Diagnoses / Procedures Referred By Lucy whiteside Referred [facility] Diagnoses Dyspnea on exertion Procedures ECG COMPLETE ECG ROUTINE ECG W/LEAST 12 LDS W/I&R PodlogJane do APRN.COUNTER SALES REPRESENTATIVE [address] [place] [address] [facility] [place] [address] [place] [address] Referral ID Status Reason Start Date Expiration Date V isits Requested Visits Authorized [id number] Closed Auto-Generate d Referral 12/04/2022 12/04/2023 1 1 * Diagnostic Procedure Only (Routine) - Authorized Specialty Diagnoses / Procedures Referred By Lucy whiteside Referred To Contact [facility] Diagnoses Valvular heart disease Dyspnea on exertion Procedures NM CARDIAC PERF STRESS/PHARM MYOCARDIAL SPECT MULTIPLE STUDIES Jane Perez APRN.COUNTER SALES REPRESENTATIVE [address] [place] [address] [facility] [address] [place] [address] Referral ID Status Reason Start Date Expiration Date Visits Requested Visits Authorized [id number] Authorized Auto-Generat ed Referral 12/04/2022 01/03/2024 1 1 * Outpatient Procedure (Routine) - Authorized Specialty Diagnoses / Procedures Referred By Lucy t Referred To Contact [facility] [place] Diagnoses Valvular heart disease Procedures ECHO ECHO TTHRC R-T 2D W/WOM-MODE COMPL SPEC&COLR D Juan PablologJane do APRN.COUNTER SALES REPRESENTATIVE [address] [place] [address] [facility] [place] [address] [place] [address] Referral ID Status Reason Start Date Expiration Date Visits Requested Visits Authorized [id number] Authorized Auto-Generat ed Referral 12/04/2022 12/04/2023 1 1 * Outpatient Procedure (Routine) - Pending Review Specialty Diagnoses / Procedures Referred By Lucy t Referred To Contact [facility] Diagnoses Valvular heart disease Dyspnea on exertion Procedures ECG COMPLETE ECG ROUTINE ECG W/LEAST 12 LDS W/I&R PodlogJane do APRN.COUNTER SALES REPRESENTATIVE [address] [place] [address] [id number] [place] [address] Referral ID Status Reason Start Date Expiration Date Visits Requested Visits Authorized [id number] Pending Review Auto-Generat ed Referral 12/04/2022 12/04/2023 1 1 [facility] for referral (narrative)* Diagnostic Procedure Only (Routine) - Closed Specialty Diagnoses / Procedures Referred By Lucy t Referred To Contact [facility] Diagnoses Valvular heart disease Dyspnea on exertion Procedures NM CARDIAC PERF STRESS/PHARM MYOCARDIAL SPECT MULTIPLE STUDIES Juan PablologJane do APRN.COUNTER SALES REPRESENTATIVE [address] [place] [address] [facility] [address] [place] [address] Referral ID Status Reason Start Date Expiration Date V isits Requested Visits Authorized [id number] Closed Auto-Generate d Referral 12/04/2022 01/03/2024 1 1 [facility] for visit Narrative* Diagnostic Procedure Only (Routine) - Closed Specialty Diagnoses / Procedures Referred By Contac t Referred To Contact [facility] Diagnoses Encounter for screening mammogram for malignant neoplasm of breast Procedures EMILY SCREENING SCREENING MAMMOGRAPHY BI 2-VIEW BREAST INC CAD PodlogJane do APRN.COUNTER SALES REPRESENTATIVE [address] [place] [address] [facility] [address] [place] [address] Referral ID Status Reason Start Date Expiration Date V isits Requested Visits Authorized [id number] Closed Auto-Generate d Referral 05/22/2021 06/21/2022 1 1 [facility] for visit Narrative* Diagnostic Procedure Only (Routine) - Closed Specialty Diagnoses / Procedures Referred By Contac t Referred To Contact [facility] Diagnoses Valvular heart disease Dyspnea on exertion Procedures NM CARDIAC PERF STRESS/PHARM MYOCARDIAL SPECT MULTIPLE STUDIES Jane Perez APRN.COUNTER SALES REPRESENTATIVE [address] [place] [address] [facility] [address] [id number] Referral ID Status Reason Start Date Expiration Date V isits Requested Visits Authorized [id number] Closed Auto-Generate d Referral 12/04/2022 01/03/2024 1 1 [facility] Reason for Referral Specialty Diagnoses / Procedures Referred By Contac t Referred To Contact [facility] Diagnoses Aching leg syndrome, unspecified laterality Procedures CONSULT TO PHYSICAL THERAPY PHYSICAL THERAPY EVALUATION HIGH COMPLEX 45 MINS Jane Perez APRN.COUNTER SALES REPRESENTATIVE [address] [place] [address] [facility] [place] [address] [place] [address] Referral ID Status Reason Start Date Expiration Date Visits Requested Visits Authorized [id number] Authorized PCP Requested Referral Auto-Generate d Referral 07/25/2021 07/25/2022 99 99 Specialty Diagnoses / Procedures Referred By Lucy whiteside Referred To Contact [facility] Diagnoses Weakness of both lower extremities Neck pain Procedures CONSULT TO PHYSICAL THERAPY PHYSICAL THERAPY EVALUATION HIGH COMPLEX 45 MINS Podlogar, PHILIP Dawson.COUNTER SALES REPRESENTATIVE [address] [place] [address] [facility] [address] [place] [address] Referral ID Status Reason Start Date Expiration Date Visits Requested Visits Authorized [id number] Authorized PCP Requested Referral Auto-Generate d Referral 12/27/2022 12/27/2023 99 99 Summary Purpose Family History No Family History Records Found Advance Directives No Advanced Directives Records Found Additional Source Comments Source Comments (unrecognize d section and content) In the event this informatio n is protected by the Federal Confidentiality of Alcohol and Drug Abuse Patient Records regulations: The Federal rules restrict any use of the information to criminally investigate or prosecute any alcohol or drug abuse patient.[facility] the event this information is protected by the Federal Confidentiality of Alcohol and Drug Abuse Patient Records regulations: The Federal rules restrict any use of the information to criminally investigate or prosecute any alcohol or drug abuse patient.[facility] the event this information is protected by the Federal Confidentiality of Alcohol and Drug Abuse Patient Records regulations: The Federal rules restrict any use of the information to criminally investigate or prosecute any alcohol or drug abuse patient.[facility] the event this information is protected by the Federal Confidentiality of Alcohol and Drug Abuse Patient Records regulations: The Federal rules restrict any use of the information to criminally investigate or prosecute any alcohol or drug abuse patient.[facility] the event this information is protected by the Federal Confidentiality of Alcohol and Drug Abuse Patient Records regulations: The Federal rules restrict any use of the information to criminally investigate or prosecute any alcohol or drug abuse patient.[facility] the event this information is protected by the Federal Confidentiality of Alcohol and Drug Abuse Patient Records regulations: The Federal rules restrict any use of the information to criminally investigate or prosecute any alcohol or drug abuse patient.[facility] the event this information is protected by the Federal Confidentiality of Alcohol and Drug Abuse Patient Records regulations: The Federal rules restrict any use of the information to criminally investigate or prosecute any alcohol or drug abuse patient.[facility] the event this information is protected by the Federal Confidentiality of Alcohol and Drug Abuse Patient Records regulations: The Federal rules restrict any use of the information to criminally investigate or prosecute any alcohol or drug abuse patient.[facility] the event this information is protected by the Federal Confidentiality of Alcohol and Drug Abuse Patient Records regulations: The Federal rules restrict any use of the information to criminally investigate or prosecute any alcohol or drug abuse patient.[facility] the event this information is protected by the Federal Confidentiality of Alcohol and Drug Abuse Patient Records regulations: The Federal rules restrict any use of the information to criminally investigate or prosecute any alcohol or drug abuse patient.[facility] the event this information is protected by the Federal Confidentiality of Alcohol and Drug Abuse Patient Records regulations: The Federal rules restrict any use of the information to criminally investigate or prosecute any alcohol or drug abuse patient.[facility] the event this information is protected by the Federal Confidentiality of Alcohol and Drug Abuse Patient Records regulations: The Federal rules restrict any use of the information to criminally investigate or prosecute any alcohol or drug abuse patient.[facility] the event this information is protected by the Federal Confidentiality of Alcohol and Drug Abuse Patient Records regulations: The Federal rules restrict any use of the information to criminally investigate or prosecute any alcohol or drug abuse patient.[facility] the event this information is protected by the Federal Confidentiality of Alcohol and Drug Abuse Patient Records regulations: The Federal rules restrict any use of the information to criminally investigate or prosecute any alcohol or drug abuse patient.[facility] the event this information is protected by the Federal Confidentiality of Alcohol and Drug Abuse Patient Records regulations: The Federal rules restrict any use of the information to criminally investigate or prosecute any alcohol or drug abuse patient.[facility] the event this information is protected by the Federal Confidentiality of Alcohol and Drug Abuse Patient Records regulations: The Federal rules restrict any use of the information to criminally investigate or prosecute any alcohol or drug abuse patient.[facility] the event this information is protected by the Federal Confidentiality of Alcohol and Drug Abuse Patient Records regulations: The Federal rules restrict any use of the information to criminally investigate or prosecute any alcohol or drug abuse patient.[facility] the event this information is protected by the Federal Confidentiality of Alcohol and Drug Abuse Patient Records regulations: The Federal rules restrict any use of the information to criminally investigate or prosecute any alcohol or drug abuse patient.[facility] the event this information is protected by the Federal Confidentiality of Alcohol and Drug Abuse Patient Records regulations: The Federal rules restrict any use of the information to criminally investigate or prosecute any alcohol or drug abuse patient.[facility] the event this information is protected by the Federal Confidentiality of Alcohol and Drug Abuse Patient Records regulations: The Federal rules restrict any use of the information to criminally investigate or prosecute any alcohol or drug abuse patient.[facility] the event this information is protected by the Federal Confidentiality of Alcohol and Drug Abuse Patient Records regulations: The Federal rules restrict any use of the information to criminally investigate or prosecute any alcohol or drug abuse patient.[facility] the event this information is protected by the Federal Confidentiality of Alcohol and Drug Abuse Patient Records regulations: The Federal rules restrict any use of the information to criminally investigate or prosecute any alcohol or drug abuse patient.[facility] the event this information is protected by the Federal Confidentiality of Alcohol and Drug Abuse Patient Records regulations: The Federal rules restrict any use of the information to criminally investigate or prosecute any alcohol or drug abuse patient.[facility] the event this information is protected by the Federal Confidentiality of Alcohol and Drug Abuse Patient Records regulations: The Federal rules restrict any use of the information to criminally investigate or prosecute any alcohol or drug abuse patient.[facility] Reason for Visit (unrecogniz ed section and content) Specialty Diagnoses / Procedures Referred By Lucy whiteside Referred To Contact [facility]AP[facility] Diagnoses Weakness of both lower extremities Neck pain Procedures CONSULT TO PHYSICAL THERAPY PHYSICAL THERAPY EVALUATION HIGH COMPLEX 45 MINS Podlogar, PHILIP Dawson.COUNTER SALES REPRESENTATIVE [address] [place] [address] [facility] [address] [place] [address] Referral ID Status Reason Start Date Expiration Date Visits Requested Visits Authorized [id number] Authorized PCP Requested Referral Auto-Generate d Referral 12/27/2022 12/27/2023 99 99 Reason Comments Physical Therapy Reason Comments Results Reason Comments PT referral request Appointment Specialty Diagnoses / Procedures Referred By Contac t Referred To Contact [facility] Diagnoses Aching leg syndrome, unspecified laterality Procedures CONSULT TO PHYSICAL THERAPY PHYSICAL THERAPY EVALUATION HIGH COMPLEX 45 MINS Podlogar, Jane, DIRECTOR OF REAL ESTATE.COUNTER SALES REPRESENTATIVE [address] [place] [address] [facility] [place] [address] [place] [address] Referral ID Status Reason Start Date Expiration Date Visits Requested Visits Authorized [id number] Authorized PCP Requested Referral Auto-Generate d Referral 07/25/2021 07/25/2022 99 99 Reason Comments Follow Up Reason Onset Date Comments Refill Request 03/26/2022 Reason Comments Patient Question Orders Reason Comments Shortness of Breath With walking; experi ences weak leg muscles if up too long. Reason Comments Patient Update Reason Comments Recheck Blood pressure Reason Comments PT Eval Reason Comments Radiology NM Specialty Diagnoses / Procedures Referred By Contac t Referred To Contact [facility] Diagnoses Valvular heart disease Dyspnea on exertion Procedures NM CARDIAC PERF STRESS/PHARM MYOCARDIAL SPECT MULTIPLE STUDIES Podlogar, Jane, DIRECTOR OF REAL ESTATE.COUNTER SALES REPRESENTATIVE [address] [place] [address] [facility] [address] [place] [address] Referral ID Status Reason Start Date Expiration Date V isits Requested Visits Authorized [id number] Closed Auto-Generate d Referral 12/04/2022 01/03/2024 1 1 Care Teams (unrecognized sec tion and content) Early Childhood Education Specialist Relationship Specialty Start Date End Date Janusz Andrews MD [address] [place], [place] [id number] PCP - General Family Practice 11/18/17 Early Childhood Education Specialist Relationship Specialty Start Date End Date Janusz Andrews MD [address] [place], [place] [id number] PCP - General Family Practice 11/18/17 Early Childhood Education Specialist Relationship Specialty Start Date End Date Janusz Andrews MD [address] [place] [address] PCP - General Family Practice 11/18/17 Early Childhood Education Specialist Relationship Specialty Start Date End Date Janusz Andrews MD [address] [place] [address] PCP - General Family Practice 11/18/17 Early Childhood Education Specialist Relationship Specialty Start Date End Date Janusz Andrews MD [address] [place] [address] PCP - General Family Practice 11/18/17 Early Childhood Education Specialist Relationship Specialty Start Date End Date Janusz Andrews MD [address] [place] [address] PCP - General Family Medicine 11/18/17 Early Childhood Education Specialist Relationship Specialty Start Date End Date Janusz Andrews MD [address] [place] [address] PCP - General Family Medicine 11/18/17 Early Childhood Education Specialist Relationship Specialty Start Date End Date Janusz Andrews MD [address] [place] [address] PCP - General Family Medicine 11/18/17 Early Childhood Education Specialist Relationship Specialty Start Date End Date Janusz Andrews MD [address] [place] [address] PCP - General Family Medicine 11/18/17 Early Childhood Education Specialist Relationship Specialty Start Date End Date Janusz Andrews MD [address] [place] [address] PCP - General Family Medicine 11/18/17 Early Childhood Education Specialist Relationship Specialty Start Date End Date Janusz Andrews MD [address] [place] [address] PCP - General Family Medicine 11/18/17 Early Childhood Education Specialist Relationship Specialty Start Date End Date Janusz Andrews MD [address] [place] [address] PCP - General Family Medicine 11/18/17 Early Childhood Education Specialist Relationship Specialty Start Date End Date Janusz Andrews MD [address] [place] [address] PCP - General Family Medicine 11/18/17 Early Childhood Education Specialist Relationship Specialty Start Date End Date Janusz Andrews MD [address] [place] [address] PCP - General Family Medicine 11/18/17 Early Childhood Education Specialist Relationship Specialty Start Date End Date Janusz Andrews MD [address] [place] [address] PCP - General Family Medicine 11/18/17 Early Childhood Education Specialist Relationship Specialty Start Date End Date Janusz Andrews MD [address] [place] [address] PCP - General Family Medicine 11/18/17 Early Childhood Education Specialist Relationship Specialty Start Date End Date Janusz Andrews MD [address] [place] [address] PCP - General Family Medicine 11/18/17 Early Childhood Education Specialist Relationship Specialty Start Date End Date Janusz Andrews MD [address] [place] [address] PCP - General Family Medicine 11/18/17 Early Childhood Education Specialist Relationship Specialty Start Date End Date Janusz Andrews MD [address] [facility] [place] [address] PCP - General Family Medicine 11/18/17 INFORMATION SOURCE (unrecogn ized section and content) FOR RECORDS PERTAINING TO PATIENTS WHO ARE OR HAVE BEEN ENROLLED IN A CHEMICAL DEPENDENCY/SUBSTANCEABUSE PROGRAM, SOME INFORMATION MAY BE OMITTED. This clinical summary was aggregated from multiple sources. Caution should be exercised in using it in the provision of clinical care. This summary normalizes information from multiple sources, and as a consequence, information in this document may materially change the coding, format and clinical context of patient data. In addition, data may be omitted in some cases. CLINICAL DECISIONS SHOULD BE BASED ON THE PRIMARY CLINICAL RECORDS. [employer] provides no warranty or guarantee of the accuracy or completeness of information in this document.
[2023-05-03 10:15] LABS: Hematocrit 42.3 % (37-47); Mean Corp Hgb Conc 33.1 g/dL (32-36); Mean Corpuscular Hgb 30.1 pg (27.0-32.0); Mean Platelet Vol. 9.7 fl (6.2-12.0); Platelet Count 306 K/mm3 (150-450); RBC Distribution Width CV 12.7 % (11.6-14.6); Red Blood Count 4.65 M/mm3 (4.2-5.4); White Blood Count 9.7 K/mm3 (4.4-11.0)
[2023-05-03 10:25] LABS: Anion Gap 5 (5-15); BUN 12 mg/dL (7-18); Calcium,Total 9.5 mg/dL (8.5-10.1); Chloride 105 mmol/L (98-107); Creatinine, Serum 0.63 mg/dL (0.55-1.02); EST Glomerular Filtration Rate 95 mL/min (>60); Est Glom Filt Rate - Afr Amer 115 mL/min (>60); Estimated Creatinine Clearance 46.73 ml/min; Glucose 128 mg/dL (74-106); Potassium 3.6 mmol/L (3.5-5.1); Sodium Level 136 mmol/L (136-145)
[2023-05-03 10:27] LABS: Prothrombin Time (Protime)PT. 13.1 SECONDS (11.7-14.9)
--- NOTE | 2023-05-03 10:45 | ED.RN ---
NO OLD EKG
--- NOTE | 2023-05-03 10:57 | PCM.HP.STD ---
HPI - General General Date of Admission: 05/03/23 Date of Service: 05/03/23 Chief Complaint: Right hip pain, bilateral knee pain HPI Narrative SALMA ENG, is a 87 F who presented to [facility] ED on 05/03/2023 with worsening right hip pain and bilateral knee pain. Patient seen at bedside in the ED, present. Patient was laying back comfortably in bed, conversing normally, no acute distress. Patient did appear somewhat fatigued, states that the IV pain medication given to her about 30 minutes prior to my interview was helpful for her pain but also made her feel quite sleepy. Patient has been states that she has a known history of bilateral hip and bilateral knee osteoarthritis. She has seen orthopedics in the office within the last year. Patient has primarily been taking Tylenol for the pain, recently started taking more ibuprofen for the pain as well. She denies any recent falls or injuries. She denies any fevers or chills. Patient lives at home with her , has had worsening functional status over the past several weeks to months due to the worsening osteoarthritis. No other acute concerns this time. [facility] Medical History Restless legs Home Medications atorvastatin 20 mg tablet 20 mg PO QHS cholestrol 05/03/23 [History Last Taken 05/02/23] timolol maleate 0.5 % eye drops 1 drp ophthalmic (eye) BID glaucoma 05/03/23 [History Last Taken 05/03/23] Allergy/AdvReac Type Severity Reaction Status Date / Time ciprofloxacin Allergy Mild Hives Verified 05/03/23 08:34 duloxetine AdvReac Severe PT UNSURE Verified 05/03/23 08:34 OF REACTION Surgical History History of tonsillectomy and adenoidectomy Social History Smoking Status: Never smoker ROS Constitutional Constitutional: Denies chills, fatigue, fever(s) or weakness Eyes Eyes: Denies change in vision Cardiovascular Cardiovascular: Denies chest pain Respiratory/Chest Respiratory/Chest: Denies cough, shortness of breath at rest or wheezing Gastrointestinal Gastrointestinal: Denies abdominal pain Genitourinary Genitourinary: Denies dysuria Musculoskeletal Musculoskeletal: Reports arthralgias, joint pain and joint stiffness; Denies back pain Neurologic Neurologic: Reports abnormal gait; Denies dizziness, focal weakness or headache(s) Vital Signs Vital Signs Vital Signs: 05/03/23 07:17 05/03/23 07:16 Temperature 97.1 F L Temperature Source Temporal Pulse Rate 73 Respiratory Rate 14 Blood Pressure 193/89 H Blood Pressure Mean 123 Pulse Ox 99 Oxygen Delivery Method Room Air Weight Weight: 68.8 kg Body Mass Index (BMI) 27.7 Physical Exam Const alert, oriented x3, no apparent distress and average body habitus Constitutional Narrative: Pleasant elderly female, moderately fatigued appearing, otherwise laying comfortably in bed, conversing normally, no acute distress. General Appearance: cooperative and comfortable HEENT normocephalic, head/scalp atraumatic, hearing grossly normal bilaterally, nasal mucous membranes and turbinates normal and moist oral mucous membranes Eyes PERRL, EOMs intact bilaterally and conjunctivae normal Neck full ROM, no lymphadenopathy and supple Lymph Lymphatic: no lymphadenopathy noted Chest inspection of chest normal Resp normal respiratory effort, normal air movement, no use of accessory muscles and clear to auscultation bilaterally Cardio regular rate, regular rhythm, no murmurs and peripheral pulses 2+ throughout GI normal to inspection, nondistended, normoactive bowel sounds, soft to palpation, non-tender and non-distended Back/Spine normal ROM Extremity Extremity Narrative: Bilateral lower extremities appear grossly normal on visual exam. No tenderness to palpation in knees or hips bilaterally. Did not attempt movement with the patient. Skin no rashes or lesions noted Neuro no focal motor deficits Speech: speech normal Psych mental status grossly normal Results Lab / Micro Data 05/03/23 10:05 05/03/23 10:05 Labs: Laboratory Results - last 24 hr 05/03/23 10:05: WBC 9.7, RBC 4.65, Hgb 14.0, Hct 42.3, MCV 91.0, MCH 30.1, MCHC 33.1, RDW Std Deviation 42.0, RDW Coeff of Annel 12.7, Plt Count 306, MPV 9.7, PT 13.1, INR 1.0, Sodium 136, Potassium 3.6, Chloride 105, Carbon Dioxide 26.0, Anion Gap 5, BUN 12, Creatinine 0.63, Estim Creat Clear Calc 46.73, Est GFR (MDRD) Af Amer 115, Est GFR (MDRD) Non-Af 95, BUN/Creatinine Ratio 19.0, Glucose 128 H, Calcium 9.5 Imaging Radiology Impression Hip/Pelvis X-Ray 05/03/23 07:25 IMPRESSION: 1. Suspicious fracture across the right femoral neck. 2. Severe degenerative osteoarthrosis of both hips. Electronically Signed: Kunal Cervantes MD at 9:36 EST Reading Location ID and State: [facility] / OR , Service support , Knee X-Ray 05/03/23 07:25 IMPRESSION: 1. 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 2. Prominent cluster of calcifications forming a masslike calcified density overlying the anterior surface of the proximal tibial shaft. This may be old posttraumatic calcifications. 3. No suspicious acute fracture or dislocation of the left knee. Electronically Signed: Kunal Cervantes MD at 9:40 EST , Knee X-Ray 05/03/23 07:25 IMPRESSION: 1. No acute osseous abnormality of the right knee. 2. Faint calcification in the right lateral meniscus suggestive of the arthropathy. 3. Mild tricompartmental degenerative osteoarthrosis of the right knee. Electronically Signed: Kunal Cervantes MD at 9:45 EST , Assessment & Plan Assessment/Plan (1) Closed fracture of right hip: PLAN: Plan Patient is an 87-year-old female who presented to [facility] ED on 05/03/2023 with worsening right hip pain and bilateral knee pain. 1. Concern for atraumatic right femoral neck fracture ? Admit under inpatient status to [facility]. Hip x-ray on admit showed suspicious fracture across the right femoral neck. ED discussed with orthopedics, planning for surgery either tomorrow or Friday. Preoperative evaluation as noted below. PT/OT/case management consulted. Pain management with scheduled Tylenol, as needed oxycodone and as needed IV Dilaudid. 2. Preoperative evaluation ? NSQIP score: Patient has average risk of complications and serious complications based on her risk factors of age, female, mild systemic disease and mildly elevated BMI. ? Labs: Hemoglobin and kidney function stable, no other lab abnormalities, recommend CBC and BMP postoperatively. ? Imaging: Imaging on admit as noted above, no further imaging required. ? EKG/echo: No EKG or echo on file but patient has mild hyperlipidemia, otherwise no cardiac history. No need for this testing prior to her procedure. ? Medications: No need to hold any medications for this procedure. ? Previous procedural complications: None. ? Recommendation: Patient is medically optimized for this procedure. 3. Bilateral hip severe osteoarthritis, bilateral knee pain. ? Hip x-ray showed severe degenerative osteoarthritis of both hips. 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 PT/OT consulted as above. Pain management as above. 4. Elevated blood pressure readings ? Systolic BP elevated to 180s to 190s in the ED. No diagnosis of hypertension. Suspect elevated BP secondary to pain, pain management as noted above. IV hydralazine as needed ordered as well. Chronic medical conditions: ? Hyperlipidemia: Continue home statin. ? Glaucoma: Continue home eyedrops. DVT prophylaxis: Lovenox CODE STATUS: DNR CCA, DNI Expected disposition: TBD Total clinical time spent by myself addressing the patient's medical issues, reviewing all the data, and collaborating with patient's care team: 55 minutes. Charges/Coding Visit Charges Inpatient E&M: 05374 Init Hosp L2
--- OUTSIDE RECORDS SUMMARY | 2023-05-03 11:25 | XMS RPT_ITS | CCD ---
Author Name Unknown Address [address] [place] [address] Organization [facility] Care Team Providers Care Turning Machine Set Up Operator Name Role Phone Janusz Andrews MD Primary [...] Translations: [CIPROFLOXACIN] Drug Allergy 07-22-2005 Rash, Hives [facility] Work Phone: (20 sources) DULoxetine; Translations: [DULOXETINE] Drug Allergy 08-08-2021 Intolerance [facility] Work Phone: Medications Completed/Discontinued Medications Medication Drug [...] 13:13-0400 Body weight 67.95 kg Jane Podlogar WEATHERIZATION OPERATIONS MANAGER.MOLD RELEASE WORKER Work Phone: [facility] 12-27-2022 13:13-0400 Diastolic blood pressure 78 mm[Hg] Jane Podlogar WEATHERIZATION OPERATIONS MANAGER.MOLD RELEASE WORKER Work Phone: [facility] 12-27-2022 13:13-0400 Heart rate 72 /min Jane Podlogar WEATHERIZATION OPERATIONS MANAGER.MOLD RELEASE WORKER Work Phone: [facility] 12-27-2022 13:13-0400 Respiratory rate 18 /min Jane Podlogar WEATHERIZATION OPERATIONS MANAGER.MOLD RELEASE WORKER Work Phone: [facility] 12-27-2022 13:13-0400 SaO2% (BldA) [Mass fraction] 95 % Jane Podlogar WEATHERIZATION OPERATIONS MANAGER.MOLD RELEASE WORKER Work Phone: [facility] 12-27-2022 13:13-0400 Systolic blood pressure 142 mm[Hg] Jane Podlogar WEATHERIZATION OPERATIONS MANAGER.MOLD RELEASE WORKER Work Phone: [facility] 12-04-2022 14:20-0400 Body weight 68.95 kg Jane Podlogar WEATHERIZATION OPERATIONS MANAGER.MOLD RELEASE WORKER Work Phone: [facility] 12-04-2022 14:20-0400 Diastolic blood pressure 84 mm[Hg] Jane Podlogar WEATHERIZATION OPERATIONS MANAGER.MOLD RELEASE WORKER Work Phone: [facility] 12-04-2022 14:20-0400 Heart rate 71 /min Jane Podlogar WEATHERIZATION OPERATIONS MANAGER.MOLD RELEASE WORKER Work Phone: [facility] 12-04-2022 14:20-0400 Respiratory rate 20 /min Jane Podlogar WEATHERIZATION OPERATIONS MANAGER.MOLD RELEASE WORKER Work Phone: [facility] 12-04-2022 14:20-0400 SaO2% (BldA) [Mass fraction] 98 % Jane Podlogar WEATHERIZATION OPERATIONS MANAGER.MOLD RELEASE WORKER Work Phone: [facility] 12-04-2022 14:20-0400 Systolic blood pressure 182 mm[Hg] Jane Podlogar WEATHERIZATION OPERATIONS MANAGER.MOLD RELEASE WORKER Work Phone: [facility] 12-17-2021 10:21-0400 Body weight 73.3 kg Jane Podlogar WEATHERIZATION OPERATIONS MANAGER.MOLD RELEASE WORKER Work Phone: [facility] 12-17-2021 10:21-0400 Diastolic blood pressure 82 mm[Hg] Jane Podlogar WEATHERIZATION OPERATIONS MANAGER.MOLD RELEASE WORKER Work Phone: [facility] 12-17-2021 10:21-0400 Heart rate 68 /min Jane Podlogar WEATHERIZATION OPERATIONS MANAGER.MOLD RELEASE WORKER Work Phone: [facility] 12-17-2021 10:21-0400 Respiratory rate 16 /min Jane Podlogar WEATHERIZATION OPERATIONS MANAGER.MOLD RELEASE WORKER Work Phone: [facility] 12-17-2021 10:21-0400 SaO2% (BldA) [Mass fraction] 96 % Jane Podlogar WEATHERIZATION OPERATIONS MANAGER.MOLD RELEASE WORKER Work Phone: [facility] 12-17-2021 10:21-0400 Systolic blood pressure 142 mm[Hg] Jane Podlogar WEATHERIZATION OPERATIONS MANAGER.MOLD RELEASE WORKER Work Phone: [facility] Encounters Encounter Date Encounter Type Care Provider Facility Start: 01-29-2023 End: 01-29-2023 [facility] KEKE LEONIDAS Facility:[facility] Start: 01-29-2023 End: 01-29-[address] [facility] LAURA Sandoval [facility] Physical Therapy Procedures Date Procedure Procedure Detail Performing Clinician Start: 12-21-2022 [facility] COVI D-19 VACCINE ( SEASON) AGE 12+ YR Kade Fisher MD Work Phone: Start: 12-21-2022 INFLUENZA VACCINE, P RSV FREE, AGE 65+ YR, HIGH DOSE, QUADRIVALENT (FLUZONE HIGH-DOSE) Kade Fisher MD Work Phone: Start: 12-09-2022 Myocardial spect mul tiple studies Jane Podlogar WEATHERIZATION OPERATIONS MANAGER.MOLD RELEASE WORKER Work Phone: Start: 12-26-2021 INFLUENZA SEASONAL QUADRIVALENT HIGH DOSE AGE 65+ Janusz Andrews MD Work Phone: Start: 06-11-2021 Screening mammograph y bi 2-view breast inc cad Jane Perez WEATHERIZATION OPERATIONS MANAGER.MOLD RELEASE WORKER Work Phone: Plan of Treatment Date Care Activity Detail Author Start: 03-31-2028 Urine microalbumin profile [facility] Start: 12-04-2025 Diabetes Screening Diabetes Screenin g [facility] Start: 05-31-2024 DIABETES SCREEN DIABETES SCREEN [facility] Start: 05-31-2024 Diabetes Screening Diabetes Screenin g [facility] Start: 02-15-2023 Covid-19 Vaccine (4 - Moderna series) Covid-19 Vaccine (4 - Moderna series) [facility] Start: 12-04-2022 End: 02-03-2023 Comprehensive metabolic 2000 panel - Serum or Plasma [facility] Work Phone: Immunizations Immunization Date Immunization Notes Care Provider Fa cility 12-21-2022 COVID-19 vaccine, ag e 12+ yr, season (PFIZER-BIONTECH) Immunization Rodessa Work Phone: [facility] Work Phone: 12-21-2022 influenza (HD-IIV4) vaccine, age 65+ yr, high dose, quadrivalent, PF (FLUZONE HIGH-DOSE) Immunization Rodessa Work Phone: [facility] 12-26-2021 influenza, high-dose , quadrivalent vaccine (FLUZONE HIGH DOSE QUADRIVALENT) Ma Nurse Work Phone: [facility] Work Phone: 12-26-2021 influenza virus vaccine, unspecified formulation Jane Perez WEATHERIZATION OPERATIONS MANAGER.MOLD RELEASE WORKER Work Phone: [facility] 12-16-2020 influenza, high-dose , quadrivalent vaccine (FLUZONE HIGH DOSE QUADRIVALENT) Jane Perez WEATHERIZATION OPERATIONS MANAGER.MOLD RELEASE WORKER Work Phone: [facility] Work Phone: 12-25-2019 influenza, high-dose , quadrivalent vaccine (FLUZONE HIGH DOSE QUADRIVALENT) Jane Podlogar WEATHERIZATION OPERATIONS MANAGER.MOLD RELEASE WORKER Work Phone: [facility] 01-15-2019 influenza, high dose seasonal, preservative-free Jane Podlogar WEATHERIZATION OPERATIONS MANAGER.MOLD RELEASE WORKER Work Phone: [facility] 12-20-2017 influenza, high dose seasonal, preservative-free Jane Podlogar WEATHERIZATION OPERATIONS MANAGER.MOLD RELEASE WORKER Work Phone: [facility] 2016 influenza, high dose seasonal, preservative-free Jane Podlogar WEATHERIZATION OPERATIONS MANAGER.MOLD RELEASE WORKER Work Phone: [facility] 01-31-2016 influenza, high dose seasonal, preservative-free Jane Podlogar WEATHERIZATION OPERATIONS MANAGER.[facility] Work Phone: [facility] Work Phone: 08-04-2015 pneumococcal conjuga te vaccine, 13 valent Jane Podlogar WEATHERIZATION OPERATIONS MANAGER.[facility] Work Phone: [facility] 12-22-2014 influenza, high dose seasonal, preservative-free Jane Podlogar WEATHERIZATION OPERATIONS MANAGER.[facility] Work Phone: [facility] 12-29-2013 influenza, seasonal, injectable Jane Podlogar WEATHERIZATION OPERATIONS MANAGER.[facility] Work Phone: [facility] 01-02-2013 influenza virus vaccine, unspecified formulation Jane Podlogar WEATHERIZATION OPERATIONS MANAGER.[facility] Work Phone: [facility] Work Phone: 12-28-2011 influenza virus vaccine, unspecified formulation Jane Podlogar WEATHERIZATION OPERATIONS MANAGER.MOLD RELEASE WORKER Work Phone: [facility] Work Phone: 12-22-2010 influenza virus vaccine, unspecified formulation Jane Podlogar WEATHERIZATION OPERATIONS MANAGER.[facility] Work Phone: [facility] Work Phone: 01-18-2010 influenza virus vaccine, unspecified formulation Jane Podlogar WEATHERIZATION OPERATIONS MANAGER.[facility] Work Phone: [facility] Work Phone: 01-06-2009 influenza virus vaccine, unspecified formulation Jane Perez WEATHERIZATION OPERATIONS MANAGER.MOLD RELEASE WORKER Work Phone: [facility] 09-19-2004 tetanus toxoid, adsorbed Jane Podlogernestina WEATHERIZATION OPERATIONS MANAGER.MOLD RELEASE WORKER Work Phone: [facility] Work Phone: 04-26-2004 pneumococcal polysaccharide vaccine, 23 valent Keke Leonidas PT Work Phone: [facility] Payers Date Payer Category Payer Medicare MEDICARE MEDICAR E A AND B [id number] 2002-Present [phone] [place] [address] Medicare [id number] 2002 Medicare MEDICARE MEDICAR E A AND B [id number] 2002-Present [phone] [place] [address] Medicare [id number] 2002 Medicare [id number] Social History Date Type Detail Facility Start: 10-12-2012 End: 12-04-2022 Tobacco smoking status NHIS Never smoked tobacco [facility] Work Phone: Start: 07-24-2020 End: 12-27-2022 Alcohol intake Current non-drinker of alcohol (finding) [facility] Start: 1935 Sex Assigned At Not on file [facility] Start: 06-01-2021 End: 08-06-2021 Exposure to SARS-CoV-2 (event) Not sure [facility] Start: 10-12-2012 End: 12-04-2022 Tobacco use and exposure Smokeless tobacco non-user [facility] Work Phone: Start: 03-31-2018 End: 12-04-2022 History of Social function [facility] Start: 03-31-2018 End: 12-04-2022 Tobacco use panel [facility] Adult Depression Screening Assessment 0 [facility] Clinical Notes 08-04-2015 to 01-30-2023 Keke Lauren, PT - 01/30/2023 3:01 PM Keke Shelton, PT - 01/21/2023 1:11 PM Keke Munoz, PT - 01/16/2023 2:16 PM Keke Munoz, PT - 01/10/2023 3:11 PM EDT Note Date & Type Note Facility 01-30-2023 Note HNO ID: [id number] Author: Keke Lauren PT Service: ? Author [...] to 01/30/2023 and treatment included: Therapeutic exercise, Self-senior care management, and Gait training. Goals updated on 01/29/2023. Goals for Episode of Care: created on 01/02/23 through 03/04/23 [place] in home exercise program. Met Patient will [...] Stop Time : 1500 Keke Lauren PT [facility] 01-30-2023 History of Presen t illness [...] to 01/30/2023 and treatment included: Therapeutic exercise, Self-senior care management, and Gait training. Goals updated on 01/29/2023. Goals for Episode of Care: created on 01/02/23 through 03/04/23 [place] in home exercise program. Met Patient will [...] Keke Lauren PT documented in this encounter [facility] 01-21-2023 Note HNO ID: [id number] Author: Keke Lauren PT Service: ? Author [...] Stop Time : 1310 Keke Lauren, PT [facility] 01-21-2023 History of Presen t illness [...] Keke Lauren PT documented in this encounter [facility] 01-16-2023 Note HNO ID: [id number] Author: Keke Lauren PT Service: ? Author [...] Stop Time : 1358 Keke Lauren, PT [facility] 01-16-2023 History of Presen t illness [...] Keke Lauren PT documented in this encounter [facility] 01-10-2023 Note HNO ID: [id number] Author: Keke Lauren PT Service: ? Author [...] Stop Time : 1503 Keke Lauren, PT [facility] 01-10-2023 History of Presen t illness [...] Keke Lauren PT documented in this encounter [facility] 01-02-2023 Note HNO ID: [id number] Author: Keke Lauren PT Service: ? Author [...] of Care: created on 01/02/23 through 03/04/23 [place] in home exercise program. Patient will decrease [...] Planned: 8 Planned Treatment Interventions: Therapeutic exercise (36939), Neuromuscular re-education (28487), Manual therapy (17560), Therapeutic activities (59110), Self-senior care management (02296), Gait Training (69105), Patient/Family/Caregiver Education, Body Mechanics Training PLAN FOR [...] Education: Education Learning/e (more content not included)... [facility] 01-02-2023 History of Presen t illness [...] of Care: created on 01/02/23 through 03/04/23 [place] [facility] home exercise program. Patient will decrease [...] Planned: 8 Planned Treatment Interventions: Therapeutic exercise (40567), Neuromuscular re-education (72814), Manual therapy (75118), Therapeutic activities (12999), Self-senior care management (99038), Gait Training (77526), Patient/Family/Caregiver Education, Body Mechanics Training PLAN FOR [...] Posture TREATMENT: PT Treatment Interventions: Therapeutic Exercise, Self-Penitentiary Management Evaluation Therapeutic Exercise: 1: *STS 3x10 [...] facilitated with verbal, visual, and tactile cuing. Self-Penitentiary Management: 1: Discussed plan of care, head [...] Keke Lauren PT documented in this encounter [facility] 12-27-2022 Note HNO ID: [id number] Author: Jane Perez APRN.MOLD RELEASE WORKER Service: ? Author Type: Nurse Practitioner Type: [...] of hemorrhage) Diverticulosis Female cystocele [facility] Glaucoma Bilateral, Dr. Danielson Hyperlipidemia Obesity (BMI [...] Abs Lymph 1.00 - 4.00 k/uL 2.28 Colbert% % 7.7 Abs Colbert <0.87 k/uL 0.54 Eosin% % 4.4 Abs [...] improve 3. Ne (more content not included)... [facility] 12-27-2022 History of Presen t illness [...] of hemorrhage) Diverticulosis Female cystocele [facility] Glaucoma Bilateral, Dr. Danielson Hyperlipidemia Obesity (BMI [...] Abs Lymph 1.00 - 4.00 k/uL 2.28 Colbert% % 7.7 Abs Colbert <0.87 k/uL 0.54 Eosin% % 4.4 Abs [...] which included preparing to see the patient, [id number] patient care, completing clinical documentation, obtaining and/or reviewing separately obtained history, performing a medically appropriate examination, counseling and educating the patient/family/caregiver, and ordering medications, tests, or procedures. documented in this encounter [facility] 12-10-2022 Miscellaneous Notes Reviewed. Jane Perez APRN.CNP [...] Jane Perez APRN.CNP documented in this encounter [facility] 12-10-2022 Miscellaneous Notes Images from the original note were not included. Patient notified of results below. Geneva Garner RN [place] CARDIAC PERF STRESS/PHARM: Result Notes Jane Perez APRN.CNP 12/10/2022 7:13 AM EDT Low risk stress test and normal ECHO. Jane Perez APRN.CNP documented in this encounter [facility] 12-09-2022 Note HNO ID: [id number] Author: Ghada Martinez RN Service: ? Author [...] Ghada Martinez RN Reversal agent used:none LOT [id number] 06/15 IV SITE: IV palced by nuclear tecnologist POST EXAM PIV STATUS: Discontinued by Shovel Operator PATIENT DISCHARGED TO: Nuclear Medicine Department for post stress imaging A Diagnostic radioactive procedure has taken place, with no further precautions necessary other than routine body substance precautions. More information regarding radiation safety can be found using this link: [email or web address] %20Protection %20-%20Diagnostic%20Nuclear%20M edicine%20Procedures.pdf SIGNATURE: Ghada Martinez RN PATIENT NAME:Telma Santos DATE: 12/09/22 TIME: 12:16 PM [facility] 12-09-2022 History of Presen t illness [...] Ghada Martinez RN Reversal agent used:none LOT [id number] 06/15 IV SITE: IV palced by nuclear tecnologist POST EXAM PIV STATUS: Discontinued by Shovel Operator PATIENT DISCHARGED TO: Nuclear Medicine Department for post stress imaging A Diagnostic radioactive procedure has taken place, with no further precautions necessary other than routine body substance precautions. More information regarding radiation safety can be found using this link: [email or web address] %20Protection%20-%20Diagnostic% 20Nuclear%20Medicine%20Procedur es.pdf SIGNATURE: Ghada Martinez RN PATIENT NAME:Telma Santos DATE: 12/09/22 TIME: 12:16 PM documented in this encounter [facility] 12-09-2022 Note HNO ID: [id number] Author: Itzel Mccray RT(R) Service: Nuclear Medicine [...] Discontinued PROCEDURE TYPE: NM Stress: 12.7 mCi Nz59e-Wcyiduv was administered IV for Rest Imaging at 08:55 by Itzel Mccray. 30.2 mCi Iu06c-Umdbpjy was administered IV for Stress Imaging at 10:16 by Itzel Mccray. ADMINISTRATION TIME: PATIENT DISCHARGED TO: Ambulatory patient, left [place] department area. A Diagnostic radioactive procedure has taken place, with no further precautions necessary other than routine body substance precautions. More information regarding radiation safety can be found using this link: [email or web address] %20Protection %20-%20Diagnostic%20Nuclear%20M edicine%20Procedures.pdf SIGNATURE: RT Phillip(R) PATIENT NAME: Telma Santos DATE: December 09, 2022 TIME: 11:30 AM PAGER/CONTACT #: [facility] 12-09-2022 History of Presen t illness [...] Discontinued PROCEDURE TYPE: NM Stress: 12.7 mCi Xr76j-Nwulpyi was administered IV for Rest Imaging at 08:55 by Itzel Mccray. 30.2 mCi Kt75d-Duxyvxz was administered IV for Stress Imaging at 10:16 by Itzel Mccray. ADMINISTRATION TIME: PATIENT DISCHARGED TO: Ambulatory patient, left [place] department area. A Diagnostic radioactive procedure has taken place, with no further precautions necessary other than routine body substance precautions. More information regarding radiation safety can be found using this link: [email or web address] %20Protection%20-%20Diagnostic% 20Nuclear%20Medicine%20Procedur es.pdf SIGNATURE: ILYA Fisher) PATIENT NAME: Telma Santos DATE: December 09, 2022 TIME: 11:30 AM PAGER/CONTACT #: documented in this encounter [facility] 12-05-2022 Miscellaneous Notes Pot advised of message [...] Jane Perez APRN.YASMEEN documented in this encounter [facility] 12-04-2022 Note HNO ID: [id number] Author: Kelley Watt RT(R) Service: Radiology Author [...] RT Susan(R) December 04, 2022 3:19 PM [facility] 12-04-2022 Note HNO ID: [id number] Author: Jane Perez APRN.MOLD RELEASE WORKER Service: ? Author Type: Nurse Practitioner Type: [...] (without mention of hemorrhage) Diverticulosis Female cystocele [facility] Glaucoma Bilateral, Dr. Danielson Hyperlipidemia Obesity [...] atrial enlargement AXIS: Normal axis INTERVALS: Normal NM interval QRS COMPLEX: incomplete RBBB ST SEGMENT: [...] as above - TSH SHASHAD Jane Perez, WEATHERIZATION OPERATIONS MANAGER.MOLD RELEASE WORKER [facility] (more content not included)... [facility] 12-04-2022 History of Presen t illness [...] of hemorrhage) Diverticulosis Female cystocele [facility] Glaucoma Bilateral, Dr. Danielson Hyperlipidemia Obesity (BMI [...] atrial enlargement AXIS: Normal axis INTERVALS: Normal NM interval QRS COMPLEX: incomplete RBBB ST SEGMENT: [...] as above - TSH BLD Jane Perez APRN.MOLD RELEASE WORKER Prescription instructions reviewed with patient as applicable. [...] which included preparing to see the patient, nync-yq-gpbr patient care, completing clinical documentation, obtaining and/or reviewing separately obtained history, performing a medically appropriate examination, counseling and educating the patient/family/caregiver, and ordering medications, tests, or procedures. documented in this encounter [facility] 05-28-2022 Miscellaneous Notes Patient notified and verbalized understanding. Gretchen Wolff MA We typically stop mammograms at 75. I would discuss additional imaging with patient before placing another order. Patient calling stating she received letter for mammogram. Patient asking if she still needs to have this done, if so, please place order and call patient. documented in this encounter [facility] 03-26-2022 Miscellaneous Notes Patient phones requesting refills [...] Evie Kc LPN' documented in this encounter [facility] 12-17-2021 History of Presen t illness Narrative [...] tenderness or open wounds. IMPRESSION: As above 3D Modeler: HARPREET Transcribe Date/Time: Aug 12 2014 4:19P [...] of hemorrhage) Diverticulosis Female cystocele [facility] Glaucoma Bilateral, Dr. Danielson Hyperlipidemia Obesity (BMI [...] ER with red flag symptoms Jane Podlogernestina, WEATHERIZATION OPERATIONS MANAGER.MOLD RELEASE WORKER Prescription instructions reviewed with patient as applicable. [...] which included preparing to see the patient, gdot-go-uedb patient care, completing clinical documentation, obtaining and/or reviewing separately obtained history, performing a medically appropriate examination, counseling and educating the patient/family/caregiver, and ordering medications, tests, or procedures. documented in this encounter [facility] 08-14-2021 History of Presen t illness Narrative [...] Keke Lauren PT documented in this encounter [facility] 08-09-2021 History of Presen t illness Narrative [...] Keke Lauren PT documented in this encounter [facility] 07-30-2021 Miscellaneous Notes Patient is scheduled 07/31 I have placed order for PT. Please let patient know she can schedule at her convenience. Jane Perez APRN.CNP Patient asking Sewage Plant Supervisor to please place order for her to [...] 2 days now). documented in this encounter [facility] 06-11-2021 Miscellaneous Notes Pt notified of results [...] Jane Perez APRN.CNP documented in this encounter [facility] 06-11-2021 Miscellaneous Notes June 11, 2021 PID: [id number] Telma Santos [address] [place] [address] Dear Ms. Santos, We are pleased to [...] report will be kept on file at [facility] as part of your permanent medical record and are available for your continuing care. Thank you for allowing us to help in meeting your health care needs. Sincerely, Dr. Hoover Interpreting Radiologist [facility] (Normal over 40) documented in this encounter [facility] 06-11-2021 History of Presen t illness Narrative [...] 2021 10:20 AM documented in this encounter [facility] documented as of this encounter (statuses as of 06/11/2021) [facility] History of Past illness Narrative* Problem Noted Date Resolved Date Encounter for gynecological examination without abnormal finding 08/04/2015 11/18/2017 Overview: [facility] Well adult exam 08/04/2015 11/18/2017 Overview: Last done: 08/04/2015 Colon cancer screening 08/04/2015 8 documented as of this encounter (statuses as of 06/12/2021) [facility] History of Past illness Narrative* Problem Noted Date Resolved Date Encounter for gynecological examination without abnormal finding 08/04/2015 11/18/2017 Overview: [facility] Well adult exam 08/04/2015 11/18/2017 Overview: Last done: 08/04/2015 Colon cancer screening 08/04/2015 8 documented as of this encounter (statuses as of 06/13/2021) [facility] History of Past illness Narrative* Problem Noted Date Resolved Date Encounter for gynecological examination without abnormal finding 08/04/2015 11/18/2017 Overview: [facility] Well adult exam 08/04/2015 11/18/2017 Overview: Last done: 08/04/2015 Colon cancer screening 08/04/2015 8 documented as of this encounter (statuses as of 07/30/2021) [facility] History of Past illness Narrative* Problem Noted Date Resolved Date Encounter for gynecological examination without abnormal finding 08/04/2015 11/18/2017 Overview: [facility] Well adult exam 08/04/2015 11/18/2017 Overview: Last done: 08/04/2015 Colon cancer screening 08/04/2015 8 documented as of this encounter (statuses as of 08/09/2021) [facility] History of Past illness Narrative* Problem Noted Date Resolved Date Encounter for gynecological examination without abnormal finding 08/04/2015 11/18/2017 Overview: [facility] Well adult exam 08/04/2015 11/18/2017 Overview: Last done: 08/04/2015 Colon cancer screening 08/04/2015 8 documented as of this encounter (statuses as of 08/14/2021) [facility] History of Past illness Narrative* Problem Noted Date Resolved Date Encounter for gynecological examination without abnormal finding 08/04/2015 11/18/2017 Overview: [facility] Well adult exam 08/04/2015 11/18/2017 Overview: Last done: 08/04/2015 Colon cancer screening 08/04/2015 8 documented as of this encounter (statuses as of 12/17/2021) [facility] History of Past illness Narrative* Problem Noted Date Resolved Date Encounter for gynecological examination without abnormal finding 08/04/2015 11/18/2017 Overview: [facility] adult exam 08/04/2015 11/18/2017 Overview: Last done: 08/04/2015 Colon cancer screening 08/04/2015 8 documented as of this encounter (statuses as of 12/26/2021) [facility] History of Past illness Narrative* Problem Noted Date Resolved Date Encounter for gynecological examination without abnormal finding 08/04/2015 11/18/2017 Overview: [facility] adult exam 08/04/2015 11/18/2017 Overview: Last done: 08/04/2015 Colon cancer screening 08/04/2015 8 documented as of this encounter (statuses as of 03/28/2022) [facility] History of Past illness Narrative* Problem Noted Date Resolved Date Encounter for gynecological examination without abnormal finding 08/04/2015 11/18/2017 Overview: [facility] Well adult exam 08/04/2015 11/18/2017 Overview: Last done: 08/04/2015 Colon cancer screening 08/04/2015 8 documented as of this encounter (statuses as of 05/29/2022) [facility] History of Past illness Narrative* Problem Noted Date Diagnosed Date Resolved Date Encounter for gynecological examination without abnormal finding 08/04/2015 11/18/2017 Overview: [facility] adult exam 08/04/2015 11/18/2017 Overview: Last done: 08/04/2015 Colon cancer screening 08/04/201511/18 documented as of this encounter (statuses as of 12/05/2022) [facility] History of Past illness Narrative* Problem Noted Date Diagnosed Date Resolved Date Encounter for gynecological examination without abnormal finding 08/04/2015 11/18/2017 Overview: [facility] adult exam 08/04/2015 11/18/2017 Overview: Last done: 08/04/2015 Colon cancer screening 08/04/201511/18 documented as of this encounter (statuses as of 12/05/2022) [facility] History of Past illness Narrative* Problem Noted Date Diagnosed Date Resolved Date Encounter for gynecological examination without abnormal finding 08/04/2015 11/18/2017 Overview: [facility] adult exam 08/04/2015 11/18/2017 Overview: Last done: 08/04/2015 Colon cancer screening 08/04/201511/18 documented as of this encounter (statuses as of 12/09/2022) [facility] History of Past illness Narrative* Problem Noted Date Diagnosed Date Resolved Date Encounter for gynecological examination without abnormal finding 08/04/2015 11/18/2017 Overview: [facility] adult exam 08/04/2015 11/18/2017 Overview: Last done: 08/04/2015 Colon cancer screening 08/04/201511/18 documented as of this encounter (statuses as of 12/10/2022) [facility] History of Past illness Narrative* Problem Noted Date Diagnosed Date Resolved Date Encounter for gynecological examination without abnormal finding 08/04/2015 11/18/2017 Overview: [facility] Well adult exam 08/04/2015 11/18/2017 Overview: Last done: 08/04/2015 Colon cancer screening 08/04/201511/18 documented as of this encounter (statuses as of 12/16/2022) [facility] History of Past illness Narrative* Problem Noted Date Diagnosed Date Resolved Date Encounter for gynecological examination without abnormal finding 08/04/2015 11/18/2017 Overview: [facility] adult exam 08/04/2015 11/18/2017 Overview: Last done: 08/04/2015 Colon cancer screening 08/04/201511/18 documented as of this encounter (statuses as of 12/21/2022) [facility] History of Past illness Narrative* Problem Noted Date Diagnosed Date Resolved Date Encounter for gynecological examination without abnormal finding 08/04/2015 11/18/2017 Overview: [facility] adult exam 08/04/2015 11/18/2017 Overview: Last done: 08/04/2015 Colon cancer screening 08/04/201511/18 documented as of this encounter (statuses as of 12/28/2022) [facility] History of Past illness Narrative* Problem Noted Date Diagnosed Date Resolved Date Encounter for gynecological examination without abnormal finding 08/04/2015 11/18/2017 Overview: [facility] adult exam 08/04/2015 11/18/2017 Overview: Last done: 08/04/2015 Colon cancer screening 08/04/201511/18 documented as of this encounter (statuses as of 01/02/2023) [facility] History of Past illness Narrative* Problem Noted Date Diagnosed Date Resolved Date Encounter for gynecological examination without abnormal finding 08/04/2015 11/18/2017 Overview: [facility] adult exam 08/04/2015 11/18/2017 Overview: Last done: 08/04/2015 Colon cancer screening 08/04/201511/18 documented as of this encounter (statuses as of 01/10/2023) [facility] History of Past illness Narrative* Problem Noted Date Diagnosed Date Resolved Date Encounter for gynecological examination without abnormal finding 08/04/2015 11/18/2017 Overview: [facility] adult exam 08/04/2015 11/18/2017 Overview: Last done: 08/04/2015 Colon cancer screening 08/04/201511/18 documented as of this encounter (statuses as of 01/16/2023) [facility] History of Past illness Narrative* Problem Noted Date Diagnosed Date Resolved Date Encounter for gynecological examination without abnormal finding 08/04/2015 11/18/2017 Overview: [facility] Well adult exam 08/04/2015 11/18/2017 Overview: Last done: 08/04/2015 Colon cancer screening 08/04/201511/18 documented as of this encounter (statuses as of 01/21/2023) [facility] History of Past illness Narrative* Problem Noted Date Diagnosed Date Resolved Date Encounter for gynecological examination without abnormal finding 08/04/2015 11/18/2017 Overview: [facility] Well adult exam 08/04/2015 11/18/2017 Overview: Last done: 08/04/2015 Colon cancer screening 08/04/201511/18 documented as of this encounter (statuses as of 01/26/2023) [facility] History of Past illness Narrative* Problem Noted Date Diagnosed Date Resolved Date Encounter for gynecological examination without abnormal finding 08/04/2015 11/18/2017 Overview: [facility] adult exam 08/04/2015 11/18/2017 Overview: Last done: 08/04/2015 Colon cancer screening 08/04/201511/18 documented as of this encounter (statuses as of 01/26/2023) [facility] History of Past illness Narrative* Problem Noted Date Diagnosed Date Resolved Date Encounter for gynecological examination without abnormal finding 08/04/2015 11/18/2017 Overview: [facility] adult exam 08/04/2015 11/18/2017 Overview: Last done: 08/04/2015 Colon cancer screening 08/04/201511/18 documented as of this encounter (statuses as of 01/31/2023) [facility] [place] [facility] Diagnosis Encounter for screening mammogram for malignant neoplasm of breast Other screening mammogram [facility] [place] [facility] Diagnosis Aching leg syndrome, 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[facility] Aching leg syndrome, 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, 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Primary [facility] Diagnosis Subcutaneous mass of left lower leg- [facility] Diagnosis Mixed hyperlipidemia [facility] [place] [facility]* Diagnosis Dyspnea on exertion- Primary Other dyspnea and respiratory abnormality Valvular heart disease Endocarditis, valve unspecified, unspecified cause Aching leg syndrome, unspecified laterality Weakness of both lower extremities Fatigue, unspecified type [facility] Diagnosis Screening for ischemic heart disease- Primary [facility] Diagnosis Mixed hyperlipidemia- Primary Weakness of both lower extremities Neck pain Cervicalgia [facility] Diagnosis Weakness of both lower extremities- Primary Neck pain Cervicalgia [facility] Diagnosis Weakness of both lower extremities- Primary Neck pain Cervicalgia [facility] Diagnosis Valvular heart disease Endocarditis, valve unspecified, unspecified cause Dyspnea on exertion Other dyspnea and respiratory abnormality [facility] Diagnosis Weakness of both lower extremities- Primary Neck pain Cervicalgia documented in this encounter [facility] for referral (narrative)* Diagnostic Procedure Only (Routine) - Closed Specialty Diagnoses / Procedures Referred By Lucy whiteside Referred To Contact [facility] Diagnoses Encounter for screening mammogram for malignant neoplasm of breast Procedures EMILY SCREENING SCREENING MAMMOGRAPHY BI 2-VIEW BREAST INC CAD PodlogJane do APRN.MOLD RELEASE WORKER [address] [place] [address] [facility] [address] [place] [address] Referral ID Status Reason Start Date Expiration Date V isits Requested Visits Authorized [id number] Closed Auto-Generate d Referral 05/22/2021 06/21/2022 1 1 [facility] for referral (narrative)* Outpatient Procedure (Routine) - Closed Specialty Diagnoses / Procedures Referred By Lucy whiteside Referred To [facility] Diagnoses Dyspnea on exertion Procedures ECG COMPLETE ECG ROUTINE ECG W/LEAST 12 LDS W/I&R PodlogJane do APRN.MOLD RELEASE WORKER [address] [place] [address] [facility] [address] [place] [address] Referral ID Status Reason Start Date Expiration Date V isits Requested Visits Authorized [id number] Closed Auto-Generate d Referral 12/04/2022 12/04/2023 1 1 * Diagnostic Procedure Only (Routine) - Authorized Specialty Diagnoses / Procedures Referred By Lucy whiteside Referred To Contact [facility] Diagnoses Valvular heart disease Dyspnea on exertion Procedures NM CARDIAC PERF STRESS/PHARM MYOCARDIAL SPECT MULTIPLE STUDIES Jane Perez APRN.MOLD RELEASE WORKER [address] [place] [address] [facility] [address] [place] [address] Referral ID Status Reason Start Date Expiration Date Visits Requested Visits Authorized [id number] Authorized Auto-Generat ed Referral 12/04/2022 01/03/2024 1 1 * Outpatient Procedure (Routine) - Authorized Specialty Diagnoses / Procedures Referred By Lucy t Referred To Contact [facility] [place] Diagnoses Valvular heart disease Procedures ECHO ECHO TTHRC R-T 2D W/WOM-MODE COMPL SPEC&COLR D Juan PablologJane do APRN.MOLD RELEASE WORKER [address] [place] [address] [facility] [address] [place] [address] Referral ID Status Reason Start Date Expiration Date Visits Requested Visits Authorized [id number] Authorized Auto-Generat ed Referral 12/04/2022 12/04/2023 1 1 * Outpatient Procedure (Routine) - Pending Review Specialty Diagnoses / Procedures Referred By Lucy t Referred To Contact [facility] Diagnoses Valvular heart disease Dyspnea on exertion Procedures ECG COMPLETE ECG ROUTINE ECG W/LEAST 12 LDS W/I&R PodlogJane do APRN.MOLD RELEASE WORKER [address] [place] [address] [id number] [place] [address] Referral ID Status Reason Start Date Expiration Date Visits Requested Visits Authorized [id number] Pending Review Auto-Generat ed Referral 12/04/2022 12/04/2023 1 1 [facility] for referral (narrative)* Diagnostic Procedure Only (Routine) - Closed Specialty Diagnoses / Procedures Referred By Lucy t Referred To Contact [facility] Diagnoses Valvular heart disease Dyspnea on exertion Procedures NM CARDIAC PERF STRESS/PHARM MYOCARDIAL SPECT MULTIPLE STUDIES Juan PablologJane do APRN.MOLD RELEASE WORKER [address] [place] [address] [facility] [address] [place] [address] Referral ID Status Reason Start Date Expiration Date V isits Requested Visits Authorized [id number] Closed Auto-Generate d Referral 12/04/2022 01/03/2024 1 1 [facility] for visit Narrative* Diagnostic Procedure Only (Routine) - Closed Specialty Diagnoses / Procedures Referred By Contac t Referred To Contact [facility] Diagnoses Encounter for screening mammogram for malignant neoplasm of breast Procedures EMILY SCREENING SCREENING MAMMOGRAPHY BI 2-VIEW BREAST INC CAD PodlogJane do APRN.MOLD RELEASE WORKER [address] [place] [address] [facility] [address] [place] [address] Referral ID Status Reason Start Date Expiration Date V isits Requested Visits Authorized [id number] Closed Auto-Generate d Referral 05/22/2021 06/21/2022 1 1 [facility] for visit Narrative* Diagnostic Procedure Only (Routine) - Closed Specialty Diagnoses / Procedures Referred By Contac t Referred To Contact [facility] Diagnoses Valvular heart disease Dyspnea on exertion Procedures NM CARDIAC PERF STRESS/PHARM MYOCARDIAL SPECT MULTIPLE STUDIES Jane Perez APRN.MOLD RELEASE WORKER [address] [place] [address] [facility] [address] [place] [id number] Referral ID Status Reason Start Date Expiration Date V isits Requested Visits Authorized [id number] Closed Auto-Generate d Referral 12/04/2022 01/03/2024 1 1 [facility] Reason for Referral Specialty Diagnoses / Procedures Referred By Contac t Referred To Contact [facility] Diagnoses Aching leg syndrome, unspecified laterality Procedures CONSULT TO PHYSICAL THERAPY PHYSICAL THERAPY EVALUATION HIGH COMPLEX 45 MINS Jane Perez APRN.MOLD RELEASE WORKER [address] [place] [address] [facility] [address] [place] [address] Referral ID Status Reason Start Date Expiration Date Visits Requested Visits Authorized [id number] Authorized PCP Requested Referral Auto-Generate d Referral 07/25/2021 07/25/2022 99 99 Specialty Diagnoses / Procedures Referred By Lucy whiteside Referred To Contact [facility] Diagnoses Weakness of both lower extremities Neck pain Procedures CONSULT TO PHYSICAL THERAPY PHYSICAL THERAPY EVALUATION HIGH COMPLEX 45 MINS Podlogar, PHILIP Dawson.MOLD RELEASE WORKER [address] [place] [address] [facility] [address] [place] [address] Referral ID Status Reason Start Date Expiration Date Visits Requested Visits Authorized [id number] Authorized PCP Requested Referral Auto-Generate d Referral [...] or prosecute any alcohol or drug abuse patient.[facility] the event this information is protected by the Federal Confidentiality of Alcohol and Drug Abuse Patient Records regulations: The Federal rules restrict any use of the information to criminally investigate or prosecute any alcohol or drug abuse patient.[facility] the event this information is protected by the Federal Confidentiality of Alcohol and Drug Abuse Patient Records regulations: The Federal rules restrict any use of the information to criminally investigate or prosecute any alcohol or drug abuse patient.[facility] the event this information is protected by the Federal Confidentiality of Alcohol and Drug Abuse Patient Records regulations: The Federal rules restrict any use of the information to criminally investigate or prosecute any alcohol or drug abuse patient.[facility] the event this information is protected by the Federal Confidentiality of Alcohol and Drug Abuse Patient Records regulations: The Federal rules restrict any use of the information to criminally investigate or prosecute any alcohol or drug abuse patient.[facility] the event this information is protected by the Federal Confidentiality of Alcohol and Drug Abuse Patient Records regulations: The Federal rules restrict any use of the information to criminally investigate or prosecute any alcohol or drug abuse patient.[facility] the event this information is protected by the Federal Confidentiality of Alcohol and Drug Abuse Patient Records regulations: The Federal rules restrict any use of the information to criminally investigate or prosecute any alcohol or drug abuse patient.[facility] the event this information is protected by the Federal Confidentiality of Alcohol and Drug Abuse Patient Records regulations: The Federal rules restrict any use of the information to criminally investigate or prosecute any alcohol or drug abuse patient.[facility] the event this information is protected by the Federal Confidentiality of Alcohol and Drug Abuse Patient Records regulations: The Federal rules restrict any use of the information to criminally investigate or prosecute any alcohol or drug abuse patient.[facility] the event this information is protected by the Federal Confidentiality of Alcohol and Drug Abuse Patient Records regulations: The Federal rules restrict any use of the information to criminally investigate or prosecute any alcohol or drug abuse patient.[facility] the event this information is protected by the Federal Confidentiality of Alcohol and Drug Abuse Patient Records regulations: The Federal rules restrict any use of the information to criminally investigate or prosecute any alcohol or drug abuse patient.[facility] the event this information is protected by the Federal Confidentiality of Alcohol and Drug Abuse Patient Records regulations: The Federal rules restrict any use of the information to criminally investigate or prosecute any alcohol or drug abuse patient.[facility] the event this information is protected by the Federal Confidentiality of Alcohol and Drug Abuse Patient Records regulations: The Federal rules restrict any use of the information to criminally investigate or prosecute any alcohol or drug abuse patient.[facility] the event this information is protected by the Federal Confidentiality of Alcohol and Drug Abuse Patient Records regulations: The Federal rules restrict any use of the information to criminally investigate or prosecute any alcohol or drug abuse patient.[facility] the event this information is protected by the Federal Confidentiality of Alcohol and Drug Abuse Patient Records regulations: The Federal rules restrict any use of the information to criminally investigate or prosecute any alcohol or drug abuse patient.[facility] HospitalIn the event this information is protected by the Federal Confidentiality of Alcohol and Drug Abuse Patient Records regulations: The Federal rules restrict any use of the information to criminally investigate or prosecute any alcohol or drug abuse patient.[facility] the event this information is protected by the Federal Confidentiality of Alcohol and Drug Abuse Patient Records regulations: The Federal rules restrict any use of the information to criminally investigate or prosecute any alcohol or drug abuse patient.[facility] HospitalIn the event this information is protected by the Federal Confidentiality of Alcohol and Drug Abuse Patient Records regulations: The Federal rules restrict any use of the information to criminally investigate or prosecute any alcohol or drug abuse patient.[facility]In the event this information is protected by the Federal Confidentiality of Alcohol and Drug Abuse Patient Records regulations: The Federal rules restrict any use of the information to criminally investigate or prosecute any alcohol or drug abuse patient.[facility] HospitalIn the event this information is protected by the Federal Confidentiality of Alcohol and Drug Abuse Patient Records regulations: The Federal rules restrict any use of the information to criminally investigate or prosecute any alcohol or drug abuse patient.[facility] HospitalIn the event this information is protected by the Federal Confidentiality of Alcohol and Drug Abuse Patient Records regulations: The Federal rules restrict any use of the information to criminally investigate or prosecute any alcohol or drug abuse patient.[facility] HospitalIn the event this information is protected by the Federal Confidentiality of Alcohol and Drug Abuse Patient Records regulations: The Federal rules restrict any use of the information to criminally investigate or prosecute any alcohol or drug abuse patient.[facility] HospitalIn the event this information is protected by the Federal Confidentiality of Alcohol and Drug Abuse Patient Records regulations: The Federal rules restrict any use of the information to criminally investigate or prosecute any alcohol or drug abuse patient.[facility] Hospital[facility] the event this information is protected by the Federal Confidentiality of Alcohol and Drug Abuse Patient Records regulations: The Federal rules restrict any use of the information to criminally investigate or prosecute any alcohol or drug abuse patient.[facility] Reason for Visit (unrecogniz ed section and content) Specialty Diagnoses / Procedures Referred By Lucy whiteside Referred To Contact [facility]AP[facility] Diagnoses Weakness of both lower extremities Neck pain Procedures CONSULT TO PHYSICAL THERAPY PHYSICAL THERAPY EVALUATION HIGH COMPLEX 45 MINS Podlogar, PHILIP Dawson.MOLD RELEASE WORKER [address] [place] [address] [facility] [address] [place] [address] Referral ID Status Reason Start Date Expiration Date Visits Requested Visits Authorized [id number] Authorized PCP Requested Referral Auto-Generate d Referral 12/27/2022 12/27/2023 99 99 Reason Comments Physical Therapy Reason Comments Results Reason Comments PT referral request Appointment Specialty Diagnoses / Procedures Referred By Contac t Referred To Contact [facility] Diagnoses Aching leg syndrome, unspecified laterality Procedures CONSULT TO PHYSICAL THERAPY PHYSICAL THERAPY EVALUATION HIGH COMPLEX 45 MINS Podlogar, Jane, WEATHERIZATION OPERATIONS MANAGER.MOLD RELEASE WORKER [address] [place] [address] [facility] [address] [place] [address] Referral ID Status Reason Start Date Expiration Date Visits Requested Visits Authorized [id number] Authorized PCP Requested Referral Auto-Generate d Referral [...] STRESS/PHARM MYOCARDIAL SPECT MULTIPLE STUDIES Podlogar, Jane, WEATHERIZATION OPERATIONS MANAGER.MOLD RELEASE WORKER [address] [place] [address] [facility] [address] [place] [address] Referral ID Status Reason Start Date Expiration Date V isits Requested Visits Authorized [id number] Closed Auto-Generate d Referral 12/04/2022 01/03/2024 1 1 Care Teams (unrecognized sec tion and content) Turning Machine Set Up Operator Relationship Specialty Start Date End Date Janusz Andrews MD [address] [place], [place] [id number] PCP - General Family Practice 11/18/17 Turning Machine Set Up Operator Relationship Specialty Start Date End Date Janusz Andrews MD [address] [place], [place] [id number] PCP - General Family Practice 11/18/17 Turning Machine Set Up Operator Relationship Specialty Start Date End Date Janusz Andrews MD [address] [place] [address] PCP - General Family Practice 11/18/17 Turning Machine Set Up Operator Relationship Specialty Start Date End Date Janusz Andrews MD [address] [place] [address] PCP - General Family Practice 11/18/17 Turning Machine Set Up Operator Relationship Specialty Start Date End Date Janusz Andrews MD [address] [place] [address] PCP - General Family Practice 11/18/17 Turning Machine Set Up Operator Relationship Specialty Start Date End Date Janusz Andrews MD [address] [place] [address] PCP - General Family Medicine 11/18/17 Turning Machine Set Up Operator Relationship Specialty Start Date End Date Janusz Andrews MD [address] [place] [address] PCP - General Family Medicine 11/18/17 Turning Machine Set Up Operator Relationship Specialty Start Date End Date Janusz Andrews MD [address] [place] [address] PCP - General Family Medicine 11/18/17 Turning Machine Set Up Operator Relationship Specialty Start Date End Date Janusz Andrews MD [address] [place] [address] PCP - General Family Medicine 11/18/17 Turning Machine Set Up Operator Relationship Specialty Start Date End Date Janusz Andrews MD [address] [place] [address] PCP - General Family Medicine 11/18/17 Turning Machine Set Up Operator Relationship Specialty Start Date End Date Janusz Andrews MD [address] [place] [address] PCP - General Family Medicine 11/18/17 Turning Machine Set Up Operator Relationship Specialty Start Date End Date Janusz Andrews MD [address] [place] [address] PCP - General Family Medicine 11/18/17 Turning Machine Set Up Operator Relationship Specialty Start Date End Date Janusz Andrews MD [address] [place] [address] PCP - General Family Medicine 11/18/17 Turning Machine Set Up Operator Relationship Specialty Start Date End Date Janusz Andrews MD [address] [place] [address] PCP - General Family Medicine 11/18/17 Turning Machine Set Up Operator Relationship Specialty Start Date End Date Janusz Andrews MD [address] [place] [address] PCP - General Family Medicine 11/18/17 Turning Machine Set Up Operator Relationship Specialty Start Date End Date Janusz Andrews MD [address] [place] [address] PCP - General Family Medicine 11/18/17 Turning Machine Set Up Operator Relationship Specialty Start Date End Date Janusz Andrews MD [address] [place] [address] PCP - General Family Medicine 11/18/17 Turning Machine Set Up Operator Relationship Specialty Start Date End Date Janusz Andrews MD [address] [place] [address] PCP - General Family Medicine 11/18/17 Turning Machine Set Up Operator Relationship Specialty Start Date End Date Janusz Andrews MD [address] [facility] [place] [address] PCP - General Family Medicine 11/18/17 INFORMATION [...] BE BASED ON THE PRIMARY CLINICAL RECORDS. [employer] provides no warranty or guarantee of the accuracy or completeness of information in this document.
[2023-05-03] MEDS: Ondansetron 4 MG/2 ML Vial IV (11:48)
[2023-05-03] MEDS: morphine 8 MG/ML Syringe 6 MG IV (11:48)
[2023-05-03] MEDS: Acetaminophen 500 MG Tablet 1000 MG PO ×2 (14:32→21:11)
[2023-05-03] MEDS: Timolol 0.5% 5ML OPTH.BTL 1 DRP OPHTHALMIC (21:10)
[2023-05-03] MEDS: Atorvastatin Calcium 20 MG Tablet PO (21:11)
[2023-05-04 02:15] VITALS: BP 140/64; PULSE 61; RESP 18; TEMP 36.6; O2SAT 96
[2023-05-04] MEDS: Acetaminophen 500 MG Tablet 1000 MG PO ×3 (06:04→21:49)
[2023-05-04 06:36] LABS: Hematocrit 40.8 % (37-47); Hemoglobin 13.3 g/dL (12.0-15.0); Mean Corp Hgb Conc 32.6 g/dL (32-36); Mean Corpuscular Hgb 30.3 pg (27.0-32.0); Mean Corpuscular Volume 92.9 fL (81-99); Mean Platelet Vol. 9.4 fl (6.2-12.0); Platelet Count 334 K/mm3 (150-450); RBC Distribution Width CV 12.6 % (11.6-14.6); RBC Distribution Width SD 43.4 fl (35.1-43.9); Red Blood Count 4.39 M/mm3 (4.2-5.4); White Blood Count 7.6 K/mm3 (4.4-11.0)
[2023-05-04 06:44] LABS: International Normalized Ratio 1.1; Prothrombin Time (Protime)PT. 13.8 SECONDS (11.7-14.9)
[2023-05-04 07:04] LABS: Anion Gap 4 (5-15); BUN 15 mg/dL (7-18); BUN/Creat Ratio 22.8 RATIO (10-20); Calcium,Total 9.2 mg/dL (8.5-10.1); Chloride 104 mmol/L (98-107); Creatinine, Serum 0.66 mg/dL (0.55-1.02); EST Glomerular Filtration Rate 91 mL/min (>60); Est Glom Filt Rate - Afr Amer 110 mL/min (>60); Glucose 114 mg/dL (74-106); Potassium 4.1 mmol/L (3.5-5.1); Sodium Level 137 mmol/L (136-145)
[2023-05-04 07:11] VITALS: O2SAT 95
[2023-05-04 08:15] VITALS: BP 146/69; PULSE 64; RESP 16; TEMP 36.9; O2SAT 94
[2023-05-04] MEDS: Timolol 0.5% 5ML OPTH.BTL 1 DRP OPHTHALMIC ×2 (08:48→21:50)
[2023-05-04] MEDS: Enoxaparin 40 MG/0.4 ML Syringe SC (08:48)
--- NOTE | 2023-05-04 10:10 | CON.PCM.OR_ITS ---
HPI Consult Data Date of Consult: 05/04/23 HPI Narrative HPI Narrative: SALMA ENG, is a 87 F who presents with right hip pain after moving a refrigerator at home. She is a community ambulator. She was admitted yesterday through [facility] ED with a right subcapital hip fracture and significant OA of the right acetabulum. Other than right hip pain with weight bearing, she reports no N/T/P. [facility] Medical History (Updated 05/04/23 @ 10:[address] Marquis Mercado DO) Restless legs Home Medications atorvastatin 20 mg tablet 20 mg PO QHS cholestrol 05/03/23 [History Last Taken 05/02/23] timolol maleate 0.5 % eye drops 1 drp ophthalmic (eye) BID glaucoma 05/03/23 [History Last Taken 05/03/23] Allergy/AdvReac Type Severity Reaction Status Date / Time ciprofloxacin Allergy Mild Hives Verified 05/03/23 08:34 duloxetine AdvReac Severe PT UNSURE Verified 05/03/23 08:34 OF REACTION Surgical History History of tonsillectomy and adenoidectomy Social History Smoking Status: Never smoker ROS Constitutional Constitutional: Reports systems reviewed and no addt'l complaints, except as documented Eyes Eyes: Reports systems reviewed and no addt'l complaints, except as documented ENT HEENT: Reports systems reviewed and no addt'l complaints, except as documented Cardiovascular Cardiovascular: Reports systems reviewed and no addt'l complaints, except as documented Respiratory/Chest Respiratory/Chest: Reports systems reviewed and no addt'l complaints, except as documented Gastrointestinal Gastrointestinal: Reports systems reviewed and no addt'l complaints, except as documented Genitourinary Genitourinary: Reports systems reviewed and no addt'l complaints, except as documented Integumentary Integumentary: Reports systems reviewed and no addt'l complaints, except as doc umented Neurologic Neurologic: Reports systems reviewed and no addt'l complaints, except as documented Psychiatric Psychiatric: Reports systems reviewed and no addt'l complaints, except as documented Endocrine Endocrinology: Reports systems reviewed and no addt'l complaints, except as documented Hematologic/Lymphatic Hematologic/Lymphatic: Reports systems reviewed and no addt'l complaints, except as documented Allergic/Immunologic Allergic/Immunologic: Reports systems reviewed and no addt'l complaints, except as documented Vital Signs Vital Signs Vital Signs: 05/03/23 11:37 05/03/23 12:41 05/03/23 12:04 Temperature 97.9 F Temperature Source Temporal Pulse Rate 86 64 Pulse Strength Respiratory Rate 14 16 Respiratory Effort Normal Non-Labored Respiratory Depth Normal Respiratory Pattern Normal Blood Pressure 193/79 H Blood Pressure [BP] 157/71 H Blood Pressure Mean 117 Blood Pressure Mean [BP] 99 Blood Pressure Source Blood Pressure Source [BP] Monitor Blood Pressure Position Blood Pressure Position [BP] Supine Blood Pressure Location Blood Pressure Location [BP] Right Arm Pulse Ox 99 97 Oxygen Delivery Method Room Air Room Air Room Air 05/03/23 15:48 05/03/23 15:42 05/03/23 17:30 Temperature 98.1 F Temperature Source Oral Pulse Rate 71 Pulse Strength Respiratory Rate 16 Respiratory Effort Normal Non-Labored Respiratory Depth Normal Respiratory Pattern Normal Blood Pressure Blood Pressure [BP] 151/75 H Blood Pressure Mean Blood Pressure Mean [BP] 100 Blood Pressure Source Blood Pressure Source [BP] Monitor Blood Pressure Position Blood Pressure Position [BP] Supine Blood Pressure Location Blood Pressure Location [BP] Right Arm Pulse Ox 96 99 Oxygen Delivery Method Room Air Room Air Room Air 05/03/23 20:16 05/03/23 20:16 05/03/23 19:45 Temperature 98.1 F Temperature Source Temporal Pulse Rate 69 Pulse Strength Respiratory Rate 18 Respiratory Effort Normal Non-Labored Respiratory Depth Normal Respiratory Pattern Normal Blood Pressure 169/79 H Blood Pressure [BP] Blood Pressure Mean 109 Blood Pressure Mean [BP] Blood Pressure Source Monitor Blood Pressure Source [BP] Blood Pressure Position Semi-Fowlers Blood Pressure Position [BP] Blood Pressure Location Right Arm Blood Pressure Location [BP] Pulse Ox 97 95 Oxygen Delivery Method Room Air Room Air Room Air 05/04/23 02:15 05/04/23 02:15 05/04/23 08:15 Temperature 97.9 F 98.4 F Temperature Source Temporal Oral Pulse Rate 61 64 Pulse Strength Respiratory Rate 18 16 Respiratory Effort Normal Non-Labored Respiratory Depth Normal Respiratory Pattern Normal Blood Pressure 140/64 H 146/69 H Blood Pressure [BP] Blood Pressure Mean 89 94 Blood Pressure Mean [BP] Blood Pressure Source Monitor Monitor Blood Pressure Source [BP] Blood Pressure Position Semi-Fowlers Supine Blood Pressure Position [BP] Blood Pressure Location Right Arm Right Arm Blood Pressure Location [BP] Pulse Ox 96 94 Oxygen Delivery Method Room Air Room Air 05/04/23 09:00 05/04/23 09:02 Temperature Temperature Source Pulse Rate Pulse Strength Normal (2+) Respiratory Rate Respiratory Effort Normal Non-Labored Respiratory Depth Normal Respiratory Pattern Normal Blood Pressure Blood Pressure [BP] Blood Pressure Mean Blood Pressure Mean [BP] Blood Pressure Source Blood Pressure Source [BP] Blood Pressure Position Blood Pressure Position [BP] Blood Pressure Location Blood Pressure Location [BP] Pulse Ox Oxygen Delivery Method Room Air Weight Weight: 147 lb 14.883 oz Body Mass Index (BMI) 26.2 Physical Exam Const alert, oriented x3, no apparent distress and well nourished HEENT normocephalic Eyes PERRL and EOMs intact bilaterally Neck supple General: trachea midline Lymph Lymphatic: no lymphadenopathy noted Resp normal respiratory effort and no use of accessory muscles Effort and Inspection: able to speak in complete sentences Cardio regular rate and regular rhythm GI normal to inspection, nondistended, normoactive bowel sounds Extremity Extremity Narrative: Pain with palpation and logroll of right hip. She is NVI and has no shortening of external rotation of her lower extremities. Lab / Micro Data 05/04/23 06:08 05/04/23 06:08 Labs: Laboratory Results - last 24 hr 05/03/23 10:05: WBC 9.7, RBC 4.65, Hgb 14.0, Hct 42.3, MCV 91.0, MCH 30.1, MCHC 33.1, RDW Std Deviation 42.0, RDW Coeff of Annel 12.7, Plt Count 306, MPV 9.7, PT 13.1, INR 1.0, Sodium 136, Potassium 3.6, Chloride 105, Carbon Dioxide 26.0, Anion Gap 5, BUN 12, Creatinine 0.63, Estim Creat Clear Calc 46.73, Est GFR (MDRD) Af Amer 115, Est GFR (MDRD) Non-Af 95, BUN/Creatinine Ratio 19.0, Glucose 128 H, Calcium 9.5, Antibody Screen NEGATIVE 05/04/23 06:08: WBC 7.6, RBC 4.39, Hgb 13.3, Hct 40.8, MCV 92.9, MCH 30.3, MCHC 32.6, RDW Std Deviation 43.4, RDW Coeff of Annel 12.6, Plt Count 334, MPV 9.4, PT 13.8, INR 1.1, Sodium 137, Potassium 4.1, Chloride 104, Carbon Dioxide 29.0, Anion Gap 4 L, BUN 15, Creatinine 0.66, Estim Creat Clear Calc 47.30, Est GFR (MDRD) Af Amer 110, Est GFR (MDRD) Non-Af 91, BUN/Creatinine Ratio 22.8 H, Glucose 114 H, Calcium 9.2 Rhythm Strip Rhythm Strip: Sinus Rhythm Rate: 70 Ectopy: None Assessment & Plan Assessment/Plan (1) Closed fracture of right hip: PLAN: To OR tomorrow for Right THR with Dr. Mercado. Potential risks, benefits, expectations and alternatives to surgery were reviewed. See orders and consent. (2) History of hypertension: (3) Arthritis of knee: (4) Arthritis, hip:
--- NOTE | 2023-05-04 13:25 | PN.HOSP_ITS ---
Reason for Visit Reason for Visit: Diagnoses Unilateral primary osteoarthritis, unspecified hip (05/03/23) Unilateral primary osteoarthritis, unspecified knee (05/03/23) Fracture of unspecified part of neck of right femur, initial encounter for closed fracture (05/03/23) Personal history of other diseases of the circulatory system (05/03/23) Subjective Subjective No acute events overnight. Patient seen at bedside this morning, present. Patient was laying comfortably in bed, conversing normally, no acute distress. Patient states she has minimal pain at rest but does have significant pain with movement. States that the pain medication has been helpful for her pain. No other acute concerns at this time. Objective Data Objective Data Vital Signs: Vital Signs Temp Pulse Resp BP Pulse Ox O2 Del Method 98.4 F 64 16 146/69 H 94 Room Air 05/04/23 08:15 05/04/23 08:15 05/04/23 08:15 05/04/23 08:15 05/04/23 08:15 05/04/23 09:02 Oxygen Delivery Method Room Air Weight: 67.1 kg Body Mass Index (BMI) 26.2 Intake & Output: Intake and Output for Last 24 Hours 05/02/23 05/03/23 05/04/23 23:59 23:59 23:59 Intake Total 250 / 450 350 / 350 Output Total 151 / 151 Balance 250 / 299 199 / 199 Lab / Micro Data 05/04/23 06:08 05/04/23 06:08 Labs: Laboratory Results - last 24 hr 05/04/23 06:08: WBC 7.6, RBC 4.39, Hgb 13.3, Hct 40.8, MCV 92.9, MCH 30.3, MCHC 32.6, RDW Std Deviation 43.4, RDW Coeff of Annel 12.6, Plt Count 334, MPV 9.4, PT 13.8, INR 1.1, Sodium 137, Potassium 4.1, Chloride 104, Carbon Dioxide 29.0, Anion Gap 4 L, BUN 15, Creatinine 0.66, Estim Creat Clear Calc 47.30, Est GFR (MDRD) Af Amer 110, Est GFR (MDRD) Non-Af 91, BUN/Creatinine Ratio 22.8 H, Glucose 114 H, Calcium 9.2 Rhythm Strip Rhythm Strip: Sinus Rhythm Rate: 70 Ectopy: None Physical Exam Const alert, oriented x3, no apparent distress and average body habitus Constitutional Narrative: Pleasant elderly female, laying comfortably in bed, conversing normally, no acute distress. General Appearance: cooperative and comfortable HEENT normocephalic, head/scalp atraumatic, hearing grossly normal bilaterally, nasal mucous membranes and turbinates normal and moist oral mucous membranes Eyes PERRL, EOMs intact bilaterally and conjunctivae normal Neck full ROM, no lymphadenopathy and supple Lymph Lymphatic: no lymphadenopathy noted Chest inspection of chest normal Resp normal respiratory effort, normal air movement, no use of accessory muscles and clear to auscultation bilaterally Cardio regular rate, regular rhythm, no murmurs and peripheral pulses 2+ throughout GI normal to inspection, nondistended, normoactive bowel sounds, soft to palpation, non-tender and non-distended Back/Spine normal ROM Extremity Extremity Narrative: Bilateral lower extremities appear grossly normal on visual exam. No tenderness to palpation in knees or hips bilaterally. Did not attempt movement with the patient. Skin no rashes or lesions noted Neuro no focal motor deficits Speech: speech normal Psych mental status grossly normal Assessment & Plan Assessment/Plan (1) Closed fracture of right hip: PLAN: Plan Patient is an 87-year-old female who presented to [facility] ED on 05/03/2023 with worsening right hip pain and bilateral knee pain. 1. Concern for atraumatic right femoral neck fracture ? Orthopedic surgery following. Hip x-ray on admit showed suspicious fracture across the right femoral neck. Planning for surgery tomorrow, n.p.o. at al dnight. Preoperative evaluation as noted in assessment and plan on H&P. PT/OT/case management following. Pain management with scheduled Tylenol, as needed oxycodone and as needed IV Dilaudid. 2. Bilateral hip severe osteoarthritis, bilateral knee pain. ? Hip x-ray showed severe degenerative osteoarthritis of both hips. 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 PT/OT consulted as above. Pain management as above. 3. Elevated blood pressure readings, improved ? Systolic BP elevated to 180s to 190s in the ED. No diagnosis of hypertension. Suspect elevated BP secondary to pain, pain management as noted above. IV hydralazine as needed ordered as well. Chronic medical conditions: ? Hyperlipidemia: Continue home statin. ? Glaucoma: Continue home eyedrops. DVT prophylaxis: Lovenox CODE STATUS: DNR CCA, DNI Expected disposition: TBD Total clinical time spent by myself addressing the patient's medical issues, reviewing all the data, and collaborating with patient's care team: 25 minutes. Charges/Coding Visit Charges Inpatient E&M: 29327 Subs Hosp L1
[2023-05-04 14:15] VITALS: BP 147/74; PULSE 66; RESP 16; TEMP 36.9; O2SAT 95
[2023-05-04] MEDS: HYDROmorphone 0.5 MG/0.5 ML SYRINGE IV (15:09)
[2023-05-04 20:00] VITALS: BP 141/66; PULSE 72; RESP 16; TEMP 36.7; O2SAT 95
[2023-05-04] MEDS: Atorvastatin Calcium 20 MG Tablet PO (21:49)
[2023-05-05] VITALS (14 sets, daily range): BP systolic 125–195; BP diastolic 58–98; PULSE 51–68; RESP 16–18; TEMP 36.4–37.1; O2SAT 88–100; BMI 26.2
[2023-05-05] MEDS: HYDROmorphone 0.5 MG/0.5 ML SYRINGE IV ×3 (00:17→09:49)
[2023-05-05] MEDS: 0.9% Saline Lock 10 ML Syringe IV ×3 (03:51→22:44)
[2023-05-05] MEDS: Timolol 0.5% 5ML OPTH.BTL 1 DRP OPHTHALMIC ×2 (09:39→19:52)
--- NOTE | 2023-05-05 11:43 | CASEMGMT ---
LUIS ENRIQUE ESTRADA Assessment Face to Face with patient for initial transition planning/care coordination assessment. LUIS ENRIQUE ESTRADA introduced self and role at [facility], pt voices understanding. Pt is A&Ox4 and is resting comfortably in bed and is calm. Pt at bedside. Care providers, pharmacy, and demographics verified. Admitting dx: Rt Hip Fracture LACE Strata: 1 PCP: Juliana Specialists: Denies Preferred Pharmacy: [facility] Insurance: MCR A B Prescription Benefit: Yes - pt states she uses [facility] LNOK: Bill Dryfuse (H) Living Arrangements: Pt lives with her in a single level home with a BM with HR and no issues. 2 steps to enter with no issues normally. ADLs/IADLs: Ind with ADLs. Needs some assistance with IADLs and pt helps. Transportation: Pt DME: Pt has a cane and walker at home and normally uses the cane. Pt states that she has had to use the walker more recently. Walk-in shower with shower chair. HHC/SNF: Denies history or needs. Pt?s goal: Home Plan: Pt scheduled for surgery today. PT and OT to eval the pt after surgery. Plan is TBD and pt states she would be open to DC options including SNF, HHC, or OP therapy if warranted. Sunil Gaviria RN, CM
[2023-05-05] MEDS: Lactated Ringers 1,000 ML 15 ML IV (12:22)
--- NOTE | 2023-05-05 13:21 | PCM.PN.HOSP ---
Reason for Visit Reason for Visit: Diagnoses Unilateral primary osteoarthritis, unspecified hip (05/03/23) Unilateral primary osteoarthritis, unspecified knee (05/03/23) Fracture of unspecified part of neck of right femur, initial encounter for closed fracture (05/03/23) Personal history of other diseases of the circulatory system (05/03/23) Subjective Subjective No acute events overnight. Patient seen at bedside this morning, present. Patient was resting comfortably in bed, in no acute distress. Plan was for hip operation earlier this afternoon. Patient stated her pain was well-controlled this morning, had no other acute concerns. Objective Data Objective Data Vital Signs: Vital Signs Temp Pulse Resp BP Pulse Ox O2 Del Method 97.5 F L 64 18 177/71 H 96 Room Air 05/05/23 09:35 05/05/23 09:35 05/05/23 09:35 05/05/23 09:35 05/05/23 09:35 05/05/23 10:00 Oxygen Delivery Method Room Air Weight: 67.1 kg Body Mass Index (BMI) 26.2 Intake & Output: Intake and Output for Last 24 Hours 05/03/23 05/04/23 05/05/23 23:59 23:59 23:59 Intake Total 250 / 450 900 / 1200 300 / 300 Output Total 401 / 401 Balance 250 / 299 499 / 799 300 / 300 Lab / Micro Data 05/04/23 06:08 05/04/23 06:08 Rhythm Strip Rhythm Strip: Sinus Rhythm Rate: 70 Ectopy: None Physical Exam Const alert, oriented x3, no apparent distress and average body habitus Constitutional Narrative: Pleasant elderly female, laying comfortably in bed, conversing normally, no acute distress. General Appearance: cooperative and comfortable HEENT normocephalic, head/scalp atraumatic, hearing grossly normal bilaterally, nasal mucous membranes and turbinates normal and moist oral mucous membranes Eyes PERRL, EOMs intact bilaterally and conjunctivae normal Neck full ROM, no lymphadenopathy and supple Lymph Lymphatic: no lymphadenopathy noted Chest inspection of chest normal Resp normal respiratory effort, normal air movement, no use of accessory muscles and clear to auscultation bilaterally Cardio regular rate, regular rhythm, no murmurs and peripheral pulses 2+ throughout GI normal to inspection, nondistended, normoactive bowel sounds, soft to palpation, non-tender and non-distended Back/Spine normal ROM Extremity Extremity Narrative: Bilateral lower extremities appear grossly normal on visual exam. No tenderness to palpation in knees or hips bilaterally. Did not attempt movement with the patient. Skin no rashes or lesions noted Neuro no focal motor deficits Speech: speech normal Psych mental status grossly normal Assessment & Plan Assessment/Plan (1) Closed fracture of right hip: PLAN: Plan Patient is an 87-year-old female who presented to [facility] ED on 05/03/2023 with worsening right hip pain and bilateral knee pain. 1. Concern for atraumatic right femoral neck fracture ? Orthopedic surgery following. Hip x-ray on admit showed suspicious fracture across the right femoral neck. Planning for surgery this afternoon. Preoperative evaluation as noted in assessment and plan on H&P. PT/OT/case management following. Pain management with scheduled Tylenol, as needed oxycodone and as needed IV Dilaudid. 2. Bilateral hip severe osteoarthritis, bilateral knee pain. ? Hip x-ray showed severe degenerative osteoarthritis of both hips. 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 PT/OT consulted as above. Pain management as above. 3. Elevated blood pressure readings, improved ? Systolic BP elevated to 180s to 190s in the ED. No diagnosis of hypertension. Suspect elevated BP secondary to pain, pain management as noted above. IV hydralazine as needed ordered as well. Chronic medical conditions: ? Hyperlipidemia: Continue home statin. ? Glaucoma: Continue home eyedrops. DVT prophylaxis: Lovenox CODE STATUS: DNR CCA, DNI Expected disposition: TBD Total clinical time spent by myself addressing the patient's medical issues, reviewing all the data, and collaborating with patient's care team: 25 minutes. Charges/Coding Visit Charges Inpatient E&M: 13201 Subs Hosp L1
[2023-05-05] MEDS: Cefazolin 2 GM in 0.9% Normal Saline (100mL Bag) 100 ML IV (14:38)
--- NOTE | 2023-05-05 14:53 | CHAPLAIN ---
Type of Pastoral Visit ___ Initial Visit ___ Follow-up Visit ___ On-call Visit ___ General Patient Visit ___ Spiritual Assessment ___ Family Conference ___ Bereavement ___ Rapid Response ___ Code Blue ___ Other (describe below) Pastoral Care Referral From ___ Patient ___ Family ___ Nurse ___ Physician ___ Tanker Truck Driver ___ Back Shoe Worker ___ Other (describe below) Sacrament/Intervention ___ Active listening ___ Anointing ___ Religion ___ Bereavement ___ Communion ___ Yanet exploration ___ ___ Life review ___ Prayer ___ Reconciliation ___ Sacrament of Sick ___ Supportive presence ___ Wedding ___ Other (describe below) Pastoral Comments patient is out of the room as is the bed; left a calling card for patient's return
--- NOTE | 2023-05-05 15:00 | FEM_PTH ---
PATHOLOGY RESULTS PATIENT: SALMA ENG LOC: MS3 U#:[id number] AGE/SX: 87/F ROOM: NM315 RE05/03/[address]: Dr. Efrain Bunch MD : [id number] BED: 1 DIS: 05/07/2023 SPEC #: [id number] RECD: 05/05/23 18:07 STATUS: CATALINA REGabi #: [id number] DRU: 05/05/23 15:[address]: Marquis Mercado DEPT: SURGICAL PATHOLOGY RECD BY: Shirlene Duffy ENTERED: 05/06/23 08:55 SP TYPE: FEM HEAD OTHR DR: DO Dr. Jace Walker MD Dr. Steven Widmer, MD Tissues: Femoral region, NOS Procedures: Decalcification bone/plaque Surgery Specimen Level IV Comments: @ Ordering doctor for DEC edited from to DR.MKNAPI Cali C[place] at 05/07/23 0851 @ Ordering doctor for SUV edited from to DR.MKNAPI Cali C[place] at 05/07/23 0851 @ Submitting doctor edited from to DR.MKNAPI Leiva by CRISTOFER at 05/07/23 0851 HEADER OPERATION: Total hip replacement PRE-OP DIAGNOSIS: Closed fracture of right hip TISSUE SUBMITTED: Femoral head of right hip MICROSCOPIC DIAGNOSIS Bone and tissue of right hip, total hip resection: Degenerative joint disease. Changes of organizing fracture site. Mild synovial hyperplasia. Focal crystalline debris suggestive of pseudogout. AM:nakita 05/12/2023 MICROSCOPIC DESCRIPTION Slides are reviewed. GROSS DESCRIPTION Received is one container labeled with the patient's name and designated right femoral head. The specimen consists of a freed femoral head with slight distortion measuring 6.0 x 4.5 x 4.5 cm. The articular surface is smooth. Resection margin is irregular and hemorrhagic. Also present in the specimen container are multiple irregular fragments of bone, bone fragments and soft tissue measuring in aggregate 9.0 x 6.0 x 1.0 cm. Workers Compensation Claims Supervisor sections are submitted in three cassettes as follows: 1??soft tissue, 2 & 3 - bone after decalcification. / AM:nakita 05/06/2023 TC:5 CPT: 56255, 91946
--- NOTE | 2023-05-05 16:17 | PCM.OPRPT ---
Report of Operation Date of Procedure: 05/05/23 Pre-Operative Diagnosis: Right subcapital hip fracture and right hip osteoarthritis Post-Operative Diagnosis: same Surgery/Procedure Performed:: Right THR Description of Surgical Findings:: Report of Operation Date of Procedure: 05/05/23 Pre-Operative Diagnosis: OA and subcapital fracture [ right ] hip Post-Operative Diagnosis: same Surgery/Procedure Performed: [ right ] THR production drilling machine operator: Marvel Herrmann PA-C Type of Anesthesia: general Anesthesiologist: Amado Tan M.D. Specimen's removed: bone Estimated Blood Loss (mL):100 cc Implants: [place] Accolade 2 size 3 femoral stem, 52 mm Tritanium cup, +0 MDM liner Surgical Indications: Patient has severe end-stage osteoarthritic changes and a subcapital fracture in the [right ] hip. They have failed conservative measures including activity modification, anti-inflammatories, use of assistive devices. This to the point where the pain affects their ability to enjoy life and complete activities of daily living without discomfort. Patient has elected to undergo the above procedure Procedure Description: The patient was greeted in the preoperative area the [right ] hip was marked with surgical marker preoperative antibiotics administered. The patient was then taken to or suite in stable condition. Preoperative tranexamic acid was also utilized. Once the patient was placed in the supine position on the operating room table and once adequate anesthesia was obtained they were then placed in the lateral decubitus position with the surgical hip facing the field. All bony prominences were well-padded. A commercial hip position was utilized. The appropriate extremity was then prepped and draped in usual sterile fashion. Ioban was placed on the skin. Surgical timeout was performed and surgery was commenced. A standard posterior approach to the hip was then performed. Incision was planned and carried out with a #10 blade scalpel. Dissection was then carried length of the incision to the IT band which was split proximally and distally. A Charnley retractor was then placed for soft tissue retraction exposing the piriformis. A standard posterior capsulotomy was performed. Severe eburnation of bone was noted and periarticular osteophytes were identified consistent with severe end-stage osteoarthritis. A femoral neck osteotomy guide was used to skip the proximal femur. A femoral osteotomy was then created approximately 1 fingerbreadth above the lesser trochanter. This was measured and placed on the back table. Once this was complete acetabular retractors were placed anteriorly and posteriorly. Labrum was then removed from the acetabulum exposing the entire cup of the acetabulum. Sequential reaming was then commenced and the acetabulum was medialized and sequentially widened in order to accommodate appropriate size cup. The acetabular cup was then impacted into position to the appropriate depth referencing approximately [45 degrees ] anteversion and [45 degrees ]of inclination. Excellent purchase was obtained. An appropriate size MDM liner was then placed. Attention was then turned to the femoral preparation. The hip was placed in the 90/90 position and a lateralizing box osteotome was utilized. Femoral starting awl was used followed by sequential broaching to the appropriate size. Excellent purchase was obtained with the stem no stem subsidence and excellent rotational stability was confirmed. A calcar reamer was then used in the trial head neck was placed on the broach. The hip was then located and taken through full range of motion flexion internal and external rotation as well as extension. Excellent stability was noted no impingement was identified of the components and leg lengths appear to be appropriate. The hip was at this point dislocated and the trial femoral components were removed. The final femoral stem was then implanted and impacted to the appropriate depth. Again excellent purchase was obtained no stem subsidence or rotational instability was noted. The hip was once again trialed and confirmation of leg length and stability was performed. Soft tissue tension also appeared to be appropriate. At this point the hip was redislocated and the trunnion was cleaned and dried meticulously in the appropriate size MDM femoral head was placed on the clean dry trunnion using a 12/14 Bass taper. The hip was once again relocated and again taken through full range of motion. I did inject a cocktail of postoperative pain medication in the deep and superficial tissues. Copious irrigation was performed. Anatomic closure of the piriformis tendon was performed through drill holes in the greater trochanter. A #1 Vicryl 0 Vicryl was utilized in subcutaneous tissue and surgical mikey were placed in the skin. A well-padded nonadherent dressing was applied. Patient was taken to PACU in stable condition. No complications were identified. Will follow standard postop protocol for total hip arthroplasty. My salon assistant played a vital role in the procedure beginning with positioning, holding retraction of soft tissues, positioning the leg to optimize visualization during the procedure and assisting with wound closure. Post-op Plan: DVT ppx; ASA 81 mg BID, thigh high compression stockings Follow up: in office in 2 weeks for wound check PT: to start POD #0 at hospital, outpatient PT should be arranged. Preoperative antibiotic: Ancef 2 grams IV Marquis Mercado DO Surgeon: Marquis Mercado production drilling machine operator: Marvel Herrmann Type of Anesthesia: General Anesthesiologist: Amado Tan Specimen's removed: femoral head Estimated Blood Loss (mL): 100 cc Admit VTE Documentation VTE Present on Admission: No VTE Mechan Device Prophylaxis: SCD's and Thigh High SABINO Hose VTE Pharm Prophylaxis ordered?: Yes
[2023-05-05] MEDS: TXA 1000mg in NS100 100ml (IVPB at Closure) 660 MG IV (16:18)
[2023-05-05] MEDS: JPS (Morphine 10mg/ml) OPERA.SITE (16:19)
--- NOTE | 2023-05-05 17:10 | RAD_ITS ---
STUDY: X-RAY - PELVIS AND RIGHT HIP REASON FOR EXAM: Female, 87 years old. Post Op -- AP both hips on single lore/lateral of op hip PACU TECHNIQUE: 2 views of the pelvis and hip. COMPARISON: None. FINDINGS: There is a non-specific bowel gas pattern. Normal visualized soft tissue structures. Degenerative disease of the visualized inferior SI joints and left hip. Normal bilateral superior and inferior pubic rami. Normal pubic symphysis. Normal bilateral ischial tuberosities. There is a right-sided hip prosthesis in place with normal alignment. There are skin mikey along the lateral aspect of the upper thigh and buttock region with air within the soft tissues consistent with recent surgery. RAD/Hip Min 2 Views (Portable) IMPRESSION: Status post recent surgical changes with right-sided hip prosthesis in place in normal alignment. Electronically Signed: Ewa Ortiz MD at 17:29 EST ,
[2023-05-05] MEDS: Cefazolin 1 GM/50 ML BAG IV (22:04)
[2023-05-05] MEDS: Acetaminophen 500 MG Tablet 1000 MG PO (22:05)
[2023-05-05] MEDS: Senna/Docusate Sodium 1 Tablet 2 TABLET PO (22:06)
[2023-05-05] MEDS: Atorvastatin Calcium 20 MG Tablet PO (22:06)
[2023-05-05] MEDS: Aspirin 81 MG TAB.CHEW PO (22:06)
[2023-05-05] MEDS: hydrALAZINE 20 MG/ML Vial 10 MG IV (22:41)
[2023-05-06 02:07] VITALS: BP 124/60; PULSE 72; RESP 16; TEMP 36.6; O2SAT 95
--- NOTE | 2023-05-06 02:28 | RAD_ITS ---
INDICATION: concern for dislocation EXAMINATION/TECHNIQUE: X-RAY - XR Hip Unilateral with Pelvis when performed; 2-3 Views COMPARISON: Pelvis right hip x-rays 05/05/2023 FINDINGS: Surgical hardware right hip. The acetabular and femoral components of the hip prosthesis appear well situated and in anatomic alignment, not significantly changed compared to the prior day. No acute fracture demonstrated. Marked joint space narrowing of the left hip. Extensive soft tissue air on the right adjacent to the right hip with overlying skin mikey related to recent surgery RAD/Hip 1 view with Pelvis IMPRESSION: Right total hip arthroplasty unchanged with postsurgical changes. No evidence of dislocation Electronically Signed: Damaris Alberto MD at 4:28 EST ,
[2023-05-06] MEDS: oxyCODONE 5 MG Tablet PO ×4 (04:30→22:20)
[2023-05-06] MEDS: Acetaminophen 500 MG Tablet 1000 MG PO ×3 (04:30→22:20)
[2023-05-06] MEDS: Cefazolin 1 GM/50 ML BAG IV (06:10)
[2023-05-06 06:18] VITALS: BP 144/64; PULSE 70; RESP 16; TEMP 36.6; O2SAT 97
[2023-05-06 07:13] LABS: Hematocrit 38.9 % (37-47); Hemoglobin 12.6 g/dL (12.0-15.0); Mean Corp Hgb Conc 32.4 g/dL (32-36); Mean Corpuscular Hgb 29.9 pg (27.0-32.0); Mean Corpuscular Volume 92.4 fL (81-99); Mean Platelet Vol. 9.2 fl (6.2-12.0); Platelet Count 332 K/mm3 (150-450); RBC Distribution Width CV 12.7 % (11.6-14.6); RBC Distribution Width SD 43.7 fl (35.1-43.9); Red Blood Count 4.21 M/mm3 (4.2-5.4)
[2023-05-06 07:33] LABS: Anion Gap 5 (5-15); BUN 21 mg/dL (7-18); BUN/Creat Ratio 26.6 RATIO (10-20); Calcium,Total 8.8 mg/dL (8.5-10.1); Chloride 102 mmol/L (98-107); Creatinine, Serum 0.79 mg/dL (0.55-1.02); EST Glomerular Filtration Rate 74 mL/min (>60); Est Glom Filt Rate - Afr Amer 89 mL/min (>60); Glucose 122 mg/dL (74-106); Sodium Level 133 mmol/L (136-145)
--- NOTE | 2023-05-06 07:46 | PCM.PN.ORT ---
Subjective Subjective Patient lying in bed awake. Patient reports her pain has been very well-managed. Patient denies chest pain, shortness of breath, calf pain, nausea vomiting. Patient reports she does not feel that she will be able to go home. Patient would like to be considered for [facility] for for rehab. Patient has no other complaints at this time. Objective Data Objective Data Vital Signs: Vital Signs Temp Pulse Resp BP Pulse Ox O2 Del Method O2 Flow Rate 97.8 F 70 16 144/64 H 97 Room Air 2 05/06/23 06:18 05/06/23 06:18 05/06/23 06:18 05/06/23 06:18 05/06/23 06:18 05/06/23 06:18 05/05/23 17:45 Oxygen Flow Rate (L/min) 2 Oxygen Delivery Method Room Air Weight: 67.1 kg Body Mass Index (BMI) 26.2 Intake & Output: Intake and Output for Last 24 Hours 05/04/23 05/05/23 05/06/23 23:59 23:59 23:59 Intake Total 900 / 1200 1570 / 1870 882 / 882 Output Total 401 / 401 Balance 499 / 799 1570 / 1870 882 / 882 Lab / Micro Data 05/06/23 06:57 05/06/23 06:57 Labs: Laboratory Results - last 24 hr 05/06/23 06:57: WBC 10.0, RBC 4.21, Hgb 12.6, Hct 38.9, MCV 92.4, MCH 29.9, MCHC 32.4, RDW Std Deviation 43.7, RDW Coeff of Annel 12.7, Plt Count 332, MPV 9.2, Sodium 133 L, Potassium 4.0, Chloride 102, Carbon Dioxide 26.0, Anion Gap 5, BUN 21 H, Creatinine 0.79, Estim Creat Clear Calc 47.30, Est GFR (MDRD) Af Amer 89, Est GFR (MDRD) Non-Af 74, BUN/Creatinine Ratio 26.6 H, Glucose 122 H, Calcium 8.8 Radiography Diagnostic Testing: Radiology Impression Hip X-Ray 05/05/23 17:10 IMPRESSION: Status post recent surgical changes with right-sided hip prosthesis in place in normal alignment. Electronically Signed: Ewa Ortiz MD at 17:29 EST , Hip/Pelvis X-Ray 05/06/23 02:28 IMPRESSION: Right total hip arthroplasty unchanged with postsurgical changes. No evidence of dislocation Electronically Signed: Damaris Alberto MD at 4:28 EST , Rhythm Strip Rhythm Strip: Sinus Rhythm Rate: 70 Ectopy: None Physical Exam Const alert and oriented x3 General Appearance: cooperative HEENT normocephalic Eyes PERRL Resp normal respiratory effort Effort and Inspection: able to speak in complete sentences Cardio regular rate Extremity normal capillary refill Skin no rashes or lesions noted Neuro CN's II-XII intact bilaterally Motor Exam: strength 5/5 throughout Psych mental status grossly normal and affect normal Assessment & Plan Assessment/Plan (1) S/P total right hip arthroplasty: PLAN: Plan Status post right total hip due to femoral neck fracture 1. Continue all pain medications as prescribed 2. Aspirin 81 mg 1 p.o. every 12 hours x 30 days for postop DVT prophylaxis 3. Encourage incentive spirometry 4. Weight-bear as tolerated with walker 5. Begin physical therapy today. 6. Possible placement to [facility] for for rehab 7. Staple removal 05/17/2023 8. Patient can shower 05/10/2023 9. Follow-up with Dr. Mercado 2 weeks
[2023-05-06 08:09] VITALS: BP 135/64; PULSE 66; RESP 14; TEMP 36.5; O2SAT 96
[2023-05-06] MEDS: Enoxaparin 40 MG/0.4 ML Syringe SC (08:09)
[2023-05-06] MEDS: Aspirin 81 MG TAB.CHEW PO ×2 (08:09→22:20)
[2023-05-06] MEDS: Timolol 0.5% 5ML OPTH.BTL 1 DRP OPHTHALMIC ×2 (08:10→22:19)
[2023-05-06] MEDS: Senna/Docusate Sodium 1 Tablet 2 TABLET PO ×2 (08:10→22:20)
--- NOTE | 2023-05-06 12:17 | PCM.PN.HOSP ---
Reason for Visit Reason for Visit: Diagnoses Unilateral primary osteoarthritis, unspecified hip (05/03/23) Unilateral primary osteoarthritis, unspecified knee (05/03/23) Fracture of unspecified part of neck of right femur, initial encounter for closed fracture (05/03/23) Personal history of other diseases of the circulatory system (05/03/23) Presence of right artificial hip joint (05/03/23) Subjective Subjective No acute events overnight, patient seen at bedside this morning. Laying comfortably in bed, no acute distress. Patient stated that she had just worked with physical therapy, had gotten up to the bedside chair and walked around the room slowly. She had moderate pain with ambulation but stated this was manageable with pain medication. She was very fatigued after working with therapy. She otherwise denied any acute concerns this morning. Objective Data Objective Data Vital Signs: Vital Signs Temp Pulse Resp BP Pulse Ox O2 Del Method O2 Flow Rate 97.7 F L 66 14 135/64 H 96 Room Air 2 05/06/23 08:09 05/06/23 08:09 05/06/23 08:09 05/06/23 08:09 05/06/23 08:09 05/06/23 08:09 05/05/23 17:45 Oxygen Flow Rate (L/min) 2 Oxygen Delivery Method Room Air Weight: 67.1 kg Body Mass Index (BMI) 26.2 Intake & Output: Intake and Output for Last 24 Hours 05/04/23 05/05/23 05/06/23 23:59 23:59 23:59 Intake Total 900 / 1200 1570 / 1870 932 / 932 Output Total 401 / 401 Balance 499 / 799 1570 / 1870 932 / 932 Lab / Micro Data 05/06/23 06:57 05/06/23 06:57 Labs: Laboratory Results - last 24 hr 05/06/23 06:57: WBC 10.0, RBC 4.21, Hgb 12.6, Hct 38.9, MCV 92.4, MCH 29.9, MCHC 32.4, RDW Std Deviation 43.7, RDW Coeff of Annel 12.7, Plt Count 332, MPV 9.2, Sodium 133 L, Potassium 4.0, Chloride 102, Carbon Dioxide 26.0, Anion Gap 5, BUN 21 H, Creatinine 0.79, Estim Creat Clear Calc 47.30, Est GFR (MDRD) Af Amer 89, Est GFR (MDRD) Non-Af 74, BUN/Creatinine Ratio 26.6 H, Glucose 122 H, Calcium 8.8 Radiography Diagnostic Testing: Radiology Impression Hip X-Ray 05/05/23 17:10 IMPRESSION: Status post recent surgical changes with right-sided hip prosthesis in place in normal alignment. Electronically Signed: Ewa Ortiz MD at 17:29 EST , Hip/Pelvis X-Ray 05/06/23 02:28 IMPRESSION: Right total hip arthroplasty unchanged with postsurgical changes. No evidence of dislocation Electronically Signed: Damaris Alberto MD at 4:28 EST , Rhythm Strip Rhythm Strip: Sinus Rhythm Rate: 70 Ectopy: None Physical Exam Const alert, oriented x3, no apparent distress and average body habitus Constitutional Narrative: Pleasant elderly female, laying comfortably in bed, conversing normally, no acute distress. General Appearance: cooperative and comfortable HEENT normocephalic, head/scalp atraumatic, hearing grossly normal bilaterally, nasal mucous membranes and turbinates normal and moist oral mucous membranes Eyes PERRL, EOMs intact bilaterally and conjunctivae normal Neck full ROM, no lymphadenopathy and supple Lymph Lymphatic: no lymphadenopathy noted Chest inspection of chest normal Resp normal respiratory effort, normal air movement, no use of accessory muscles and clear to auscultation bilaterally Cardio regular rate, regular rhythm, no murmurs and peripheral pulses 2+ throughout GI normal to inspection, nondistended, normoactive bowel sounds, soft to palpation, non-tender and non-distended Back/Spine normal ROM Extremity Extremity Narrative: Right hip with support in place, appeared grossly normal on visual exam. Skin no rashes or lesions noted Neuro no focal motor deficits Speech: speech normal Psych mental status grossly normal Assessment & Plan Assessment/Plan (1) Closed fracture of right hip: PLAN: Plan Patient is an 87-year-old female who presented to [facility] ED on 05/03/2023 with worsening right hip pain and bilateral knee pain. 1. Right femoral neck fracture ? Orthopedic surgery following. Hip x-ray on admit showed suspicious fracture across the right femoral neck. S/p left total hip replacement on 05/05. No perioperative complications. PT/OT/case management following, likely planning for SNF on discharge. Pain management with scheduled Tylenol, as needed oxycodone and as needed IV Dilaudid. 2. Bilateral hip severe osteoarthritis, bilateral knee pain ? Hip x-ray showed severe degenerative osteoarthritis of both hips. 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 PT/OT following as above. Pain management as above. 3. Elevated blood pressure readings, improved ? Systolic BP elevated to 180s to 190s in the ED. No diagnosis of hypertension. Suspect elevated BP secondary to pain, pain management as noted above. IV hydralazine as needed ordered as well. Chronic medical conditions: ? Hyperlipidemia: Continue home statin. ? Glaucoma: Continue home eyedrops. DVT prophylaxis: Lovenox CODE STATUS: DNR CCA, DNI Expected disposition: SNF, 1 to 2 days Total clinical time spent by myself addressing the patient's medical issues, reviewing all the data, and collaborating with patient's care team: 25 minutes. Charges/Coding Visit Charges Inpatient E&M: [address] [facility] L1
--- NOTE | 2023-05-06 12:44 | CASEMGMT ---
Addendum entered by Marcella Nice 05/06/23 17:19: Social Work There will likely be no rehab/TCU beds available until 05/09. SW spoke w/pt and , let them know this. SW asked them to review the list SW left them and SW will be in tomorrow morning to ask them for additional choices on where to send referrals. ALYCE Dunlap Original Note: Social Work SW met w/pt in regard to discharge plan. Pt states would like to stay here for rehab. SW educated pt to both the TCU and rehab level of care. Pt is not certain which would be best for her, but open to SW making referral and seeing what would be appropriate. SW did provide to pt a list of intermediate facilities in network w/pt's insurance, preferred geographic area and complete w/quality and resource use data in event pt cannot go to TCU or rehab. SW explained will make referral and let her know. Referral made, however there are no beds. SW awaiting an answer on when a bed may be available. ALYCE Dunlap
[2023-05-06 13:26] VITALS: BP 135/59; PULSE 70; RESP 16; TEMP 36.5; O2SAT 97
--- NOTE | 2023-05-06 14:28 | CHAPLAIN ---
Type of Pastoral Visit _x__ Initial Visit ___ Follow-up Visit ___ On-call Visit ___ General Patient Visit ___ Spiritual Assessment ___ Family Conference ___ Bereavement ___ Rapid Response ___ Code Blue ___ Other (describe below) Pastoral Care Referral From _x__ Patient ___ Family ___ Nurse ___ Physician ___ Hat Trimmer ___ Final Assembler Boat ___ Other (describe below) Sacrament/Intervention _x__ Active listening ___ Anointing ___ Yazidism ___ Bereavement ___ Communion _x__ Yanet exploration ___ _x__ Life review _x__ Prayer ___ Reconciliation ___ Sacrament of Sick _x__ Supportive presence ___ Wedding ___ Other (describe below) Pastoral Comments patient is finishing up her lunch and welcomes this rayon winder to sit and talk with her; pt reports on the mystery of her injury and how I've never been sick before ; pt admits to some pain but hopeful; pt has concerns for and how he shouldn't have to carry all the load for now ; pt gives some life review and 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
[2023-05-06 17:46] VITALS: BP 122/67; PULSE 89; RESP 18; TEMP 37.3; O2SAT 95
[2023-05-06 22:16] VITALS: BP 140/64; PULSE 80; RESP 18; TEMP 36.6; O2SAT 95
[2023-05-06] MEDS: Atorvastatin Calcium 20 MG Tablet PO (22:20)
[2023-05-06] MEDS: Ondansetron 4 MG/2 ML Vial IV (22:24)
[2023-05-07 02:45] VITALS: BP 136/65; PULSE 73; RESP 18; TEMP 36.8; O2SAT 93
[2023-05-07] MEDS: oxyCODONE 5 MG Tablet PO ×3 (02:45→12:06)
[2023-05-07] MEDS: Acetaminophen 500 MG Tablet 1000 MG PO (05:47)
[2023-05-07] MEDS: Aspirin 81 MG TAB.CHEW PO (07:37)
[2023-05-07] MEDS: Enoxaparin 40 MG/0.4 ML Syringe SC (07:37)
[2023-05-07] MEDS: Senna/Docusate Sodium 1 Tablet 2 TABLET PO (07:37)
[2023-05-07] MEDS: Timolol 0.5% 5ML OPTH.BTL 1 DRP OPHTHALMIC (07:38)
[2023-05-07 07:55] LABS: Hematocrit 34.9 % (37-47); Hemoglobin 11.7 g/dL (12.0-15.0); Mean Corp Hgb Conc 33.5 g/dL (32-36); Mean Corpuscular Hgb 30.3 pg (27.0-32.0); Mean Corpuscular Volume 90.4 fL (81-99); Mean Platelet Vol. 9.5 fl (6.2-12.0); Platelet Count 326 K/mm3 (150-450); RBC Distribution Width CV 12.5 % (11.6-14.6); RBC Distribution Width SD 41.4 fl (35.1-43.9); Red Blood Count 3.86 M/mm3 (4.2-5.4); White Blood Count 8.8 K/mm3 (4.4-11.0)
[2023-05-07 07:59] VITALS: BP 124/71; PULSE 75; RESP 16; TEMP 36.5; O2SAT 96
--- NOTE | 2023-05-07 10:42 | CASEMGMT ---
Addendum entered by Karon Grigsby 05/07/23 11:51: Social Work [facility] is able to accept pt. Physician updated and pt is ready for dc today. 7000 exemption form completed in [facility]. DC bilingual sales assistant updated and to complete discharge. Disposition: [facility], skilled level of care under convalescent stay KAMI Swanson Original Note: Social Work MENDY spoke with Rhonda in TCU/RU. No bed available until at least Friday. SW spoke with physician and pt is medically ready for dc today. SW met with pt and spouse and introduced self and role of SW. SW explained that rooms are not available in TCU and new choice for SNF is needed. Pt[facility] preference is [facility]. [facility] and 2. [facility]. SW updated pt and spouse on Medicare benefit and that if pt needs SNF beyond 20 days there will be a financial copay. DC bilingual sales assistant updated and to send referrals. Plan: [facility], pending acceptance KAMI Swanson
--- NOTE | 2023-05-07 10:52 | CASEMGMT ---
Addendum entered by Zulema Cabello 05/07/23 11:13: [facility] has accepted. SW updated. Zulema Cabello, Discharge Planning Asst. Original Note: Discharge Planning Referral sent via [facility] to [facility] [place]. Zulema Cabello, Discharge Planning Asst.
--- NOTE | 2023-05-07 11:14 | TREXTCAR_ITS ---
Diet Diet Order/Speech Therapy: 05/06/23 06:53 Diet: Regular - General Is pt able to select menu?: Yes Routine Orders/Code Status Routine Lab Work: CBC and BMP Code Status: DNRCC-A Wound(s) RIGHT HIP: Wound Type: Surgical Incision Therapies Weight Bearing: Weight bearing as tolerated Physical Therapy: Eval and Treat Occupational Therapy: Eval and Treat Problem/Diagnosis (1) Closed fracture of right hip: Status: Acute Code(s): S72.001A - Fracture of unspecified part of neck of right femur, initial encounter for closed fracture Allergies/Procedures Done in Hospital Allergies ciprofloxacin Allergy (Mild, Verified 05/03/23 08:34) Hives duloxetine Adverse Reaction (Severe, Verified 05/03/23 08:34) PT UNSURE OF REACTION MADE ME FEEL OUT OF IT Procedures: - (Right THR) Type of Care/Length of Stay Estimated LOS: Convalescent Care Less Than 30 days Type of Care Needed: Skilled Rehab Potential: Good Prognosis: Good Additional Orders/Day of Discharge Additional Orders: Can shower on 05/10/23 and staple removal on 05/17/23 Day of Discharge: 05/07/23 Discharge Plan Admission Admit Date/Time: 05/03/23 11:03 Attending Provider: Efrain Bunch Primary Care Provider: Jace Andrews Consulting Providers: Casey Nagel; Obed Mehta Discharge Orders/Prescriptions Prescriptions: New aspirin 81 mg Tablet,Chewable 81 mg PO BID 30 Days Qty: 60 0RF oxycodone 5 mg Tablet 5 mg PO Q4H PRN PRN (Reason: Pain Score 4-10) 3 Days Qty: 10 0RF Continued atorvastatin 20 mg tablet 20 mg PO QHS Patient Comments: take 1/2 tablet by mouth at bedtime for cholesterol timolol maleate 0.5 % drops 1 drp ophthalmic (eye) BID Patient Comments: instill 1 drop into both eyes twice a day Referrals / Follow Up: Jace Andrews MD [Primary Care Provider] - Marquis Mercado DO [Med Staff - Active Staff] - Within 2 Weeks Disposition Disposition (needs filled in before D/C Order can be placed): Care Home Facility
[2023-05-07 11:31] VITALS: BP 108/60; PULSE 74; RESP 16; TEMP 36.8; O2SAT 96
--- NOTE | 2023-05-07 11:55 | PHA.DC.MR.R ---
Pharmacy [place] Med Reconciliation Pharmacy Service has performed discharge medication reconciliation for this patient. The patient's discharge medication list was reviewed for discrepancies and discrepancies were resolved. Medications at Discharge Home Medications atorvastatin 20 mg tablet 20 mg PO QHS cholestrol 05/03/23 timolol maleate 0.5 % eye drops 1 drp ophthalmic (eye) BID glaucoma 05/03/23 aspirin 81 mg chewable tablet 81 mg PO BID 30 days #60 tabs 05/07/23 oxycodone 5 mg tablet 5 mg PO Q4H PRN PRN Pain Score 4-10 3 days #10 tabs 05/07/23
--- NOTE | 2023-05-07 12:17 | CASEMGMT ---
Discharge Planning Discharge orders, signed med list, and transport time sent to [facility] via [facility]. Physicians will transport patient by wheelchair at 1p. Nursing, SW, patient, and her updated. Zulema Cabello, Discharge Planning Asst.
--- NOTE | 2023-05-07 17:58 | DS.PCM_ITS ---
Providers Date of Admission: 05/03/23 Primary Care Physician: Dr. Jace Andrews MD Consultations 05/03/23 12:04 Consult: Orthopedics Routine Consulting Provider: Casey Nagel Reason for Consult: right hip fracture EMERGENT Consult: No MD Notified: Yes Date Notified: 05/03/23 Time Notified: 11:07 Method of Notification: per Rogelio Nagel todo sx Reason For Visit: RIGHT HIP FRACTURE Diagnosis Discharge Diagnosis (1) Closed fracture of right hip: Status: Acute Code(s): S72.001A - Fracture of unspecified part of neck of right femur, initial encounter for closed fracture Medications at Discharge Home Medications atorvastatin 20 mg tablet 20 mg PO QHS cholestrol 05/03/23 timolol maleate 0.5 % eye drops 1 drp ophthalmic (eye) BID glaucoma 05/03/23 aspirin 81 mg chewable tablet 81 mg PO BID 30 days #60 tabs 05/07/23 oxycodone 5 mg tablet 5 mg PO Q4H PRN PRN Pain Score 4-10 3 days #10 tabs 05/07/23 Hospital Course Operations total hip replacement Procedures None Summary of Care Provided Minutes Spent on Discharge: 33 Hospital Course: Per HPI: SALMA ENG, is a 87 F who presented to [facility] ED on 05/03/2023 with worsening right hip pain and bilateral knee pain. Patient seen at bedside in the ED, present. Patient was laying back comfortably in bed, conversing normally, no acute distress. Patient did appear somewhat fatigued, states that the IV pain medication given to her about 30 minutes prior to my interview was helpful for her pain but also made her feel quite sleepy. Patient has been states that she has a known history of bilateral hip and bilateral knee osteoarthritis. She has seen orthopedics in the office within the last year. Patient has primarily been taking Tylenol for the pain, recently started taking more ibuprofen for the pain as well. She denies any recent falls or injuries. She denies any fevers or chills. Patient lives at home with her , has had worsening functional status over the past several weeks to months due to the worsening osteoarthritis. No other acute concerns this time. Hospital course: 1. Right femoral neck fracture?87-year-old female presented to the hospital with an atraumatic femoral neck fracture. She had a right total hip replacement on 05/05/2023 which she tolerated well. Today she was able to get up without any significant pain but is just significantly weak. I discussed with her the plan for discharge to SNF and she expressed understanding of the risk benefits of going to the long-term and would like to go today. She will be on aspirin 81 mg p.o. twice daily for 30 days as DVT prophylaxis and she will need to follow- up with orthopedic surgery in 2 weeks. Given the nature of her atraumatic fracture would recommend outpatient evaluation for vitamin D deficiency and possible osteoporosis. 2. Hyperlipidemia, glaucoma are chronic medical conditions which complicate her care. Her home medications were continued where appropriate Physical Exam Narrative General: Alert, Oriented x3, Cooperative, No apparent distress HEENT: Atraumatic, PERRLA, EOMI, Normocephalic Oral: Moist Mucosa Neck: Supple, No JVD Lungs: Diminished, Normal air movement, No rhonchi, No wheeze, No rales Cardiovascular: Regular rate, Regular Rhythm, Normal S1, Normal S2, No murmurs Abdomen: Soft, Non Tender, Non-Distended, No Hepato-splenomegaly Extremities: No edema, Capillary Refill Less than 3 Seconds Skin: No rashes, No breakdown, incision CDI Musculoskeletal: Right hip pain to palpation Neurological: No focal neurological deficits, Motor Exam 5/5 strength throughout, Sensory exam intact to light touch and pain Psych/Mental Status: Normal Affect, Appropriate Weight / BMI Weight Weight: 147 lb 14.883 oz Body Mass Index (BMI) 26.2 ABG / Lab / Microbiology Data 05/07/23 07:21 05/06/23 06:57 Laboratory: Laboratory Results - last 24 hr 05/07/23 07:21: WBC 8.8, RBC 3.86 L, Hgb 11.7 L, Hct 34.9 L, MCV 90.4, MCH 30.3, MCHC 33.5, RDW Std Deviation 41.4, RDW Coeff of Annel 12.5, Plt Count 326, MPV 9.5 Meaningful Use Info Meaningful Use Diagnoses (Choose all that apply): None applicable Discharge Plan Admission Admit Date/Time: 05/03/23 11:03 Attending Provider: Efrain Bunch Primary Care Provider: Jace Andrews Consulting Providers: Casey Nagel; Obed Mehta Discharge Orders/Prescriptions Prescriptions: New aspirin 81 mg Tablet,Chewable 81 mg PO BID 30 Days Qty: 60 0RF oxycodone 5 mg Tablet 5 mg PO Q4H PRN PRN (Reason: Pain Score 4-10) 3 Days Qty: 10 0RF Continued atorvastatin 20 mg tablet 20 mg PO QHS Patient Comments: take 1/2 tablet by mouth at bedtime for cholesterol timolol maleate 0.5 % drops 1 drp ophthalmic (eye) BID Patient Comments: instill 1 drop into both eyes twice a day Referrals / Follow Up: Jace Andrews MD [Primary Care Provider] - Marquis Mercado DO [Med Staff - Active Staff] - Within 2 Weeks Disposition Disposition (needs filled in before D/C Order can be placed): [facility] Facility Charges/Coding Visit Charges Inpatient E&M: 04492 Disch Hosp >30min
== END 2023-05-07 13:23 | disposition skilled nursing facility (03) | DRG 522 ==
LOC: ED 11:08 → MS3 11:21
PROVIDERS: Orthopaedic Surgery; Admitting Provider Hospitalist; Emergency Provider Emergency Medicine; PCP Family Medicine; Visit Provider Family Medicine
PROC: 0SR90JZ Replacement of Right Hip Joint with Synthetic Substitute, Open Approach (ICD-10-PCS; CPT 27130; principal; 2023-05-05 14:35)
DX: M84.750A Atypical femoral fracture, unspecified, initial encounter for fracture (principal); E78.5 Hyperlipidemia, unspecified; I10 Essential (primary) hypertension; M17.0 Bilateral primary osteoarthritis of knee; M16.0 Bilateral primary osteoarthritis of hip; M11.262 Other chondrocalcinosis, left knee; H40.9 Unspecified glaucoma; Z66 Do not resuscitate; Z79.82 Long term (current) use of aspirin; Z79.899 Other long term (current) drug therapy
CPT/HCPCS: 36415; 73501; 73502; 73562; 80048; 85027; 85610; 86850; 86900; 86901; 88305; 88307; 88311; 93005; 94668; 97162; 97166; 97530; 97535; 99284; C1776; J7120; A4216; J2405

== ENCOUNTER 2024-06-18 20:15 | Inpatient (IN) | payer MEDICARE, SELFPAY ==
[2024-06-18 20:16] VITALS: BP 155/75; PULSE 90; RESP 16; TEMP 37.2; O2SAT 86; BMI 26.9
[2024-06-18 20:23] VITALS: O2SAT 89; O2SAT 91
[2024-06-18 20:24] VITALS: BP 132/64; O2SAT 92
--- NOTE | 2024-06-18 20:35 | EKG12_ITS ---
Test Reason : DYSRHYTHMIA Blood Pressure : */* mmHG Vent. Rate : 96 BPM Atrial Rate : 96 BPM P-R Int : 150 ms QRS Dur : 92 ms QT Int : 354 ms P-R-T Axes : 23 99 34 degrees QTcB Int : 447 ms Normal sinus rhythm Possible Left atrial enlargement Rightward axis Incomplete right bundle branch block Borderline ECG Confirmed by KACEY MARROQUIN, KAYLYNN ([id number]), editorial assistant SADIE PICKARD ([id number]) on 06/21/2024 9:22:32 AM Referred By: Evelia Flores Confirmed By: KAYLYNN ERAZO MD
--- NOTE | 2024-06-18 20:36 | EX.ED.DYSGE1 ---
HPI History of Present Illness Chief Complaint: Abd Pain Detail of Chief Complaint: Weakness and abdominal pain Informant: patient and spouse/S.O. Narrative Narrative: Patient presents to the emergency department via EMS from home with complaint of generalized weakness and sour stomach. Patient states that often times when she lays on her left side she has this burning in her chest that then makes her have to sit up. Sometimes she will spit up in her mouth a little bit but then swallow it. Tonight she took some Pepto-Bismol but did not have any relief. Patient states that a week ago she was diagnosed with a urinary tract infection and today was her last day for antibiotics. Patient describes some mild diffuse abdominal pain. She denies chest pain. She does complain of shortness of breath with activity and exertion. Denies fever or cough. [facility] Medical History (Updated 06/18/24 @ 22:[address] Evelia Flores DO) Restless legs Home Medications ?Medication ?Instructions ?Recorded ?Last Taken ?Type atorvastatin 20 mg tablet 20 mg PO QHS cholestrol 05/03/23 05/02/23 History timolol maleate 0.5 % eye drops 1 drp ophthalmic (eye) BID glaucoma 05/03/23 05/03/23 History aspirin 81 mg chewable tablet 81 mg PO BID 30 days #60 tabs 05/07/23 Unknown Rx oxycodone 5 mg tablet 5 mg PO Q4H PRN PRN Pain Score 05/07/23 Unknown Rx 4-10 3 days #10 tabs Allergy/AdvReac Type Severity Reaction Status Date / Time ciprofloxacin Allergy Mild Hives Verified 06/18/24 20:21 duloxetine AdvReac Severe PT UNSURE Verified 06/18/24 20:21 OF REACTION Surgical History History of tonsillectomy and adenoidectomy Social History (Updated 06/18/24 @ 20:22 by Angelika Mckenna) household members: spouse housing: house Smoking Status: Never smoker ROS ROS ED Review of Systems ROS Unobtainable: other Constitutional Constitutional ED: Reports lethargy; Denies chills, fever(s), sweats or weight loss Eyes Eyes: Denies blurry vision, change in vision or diplopia ENT ENT ED: Denies rhinorrhea or sore throat Cardiovascular Cardiovascular: Denies chest pain, orthopnea or racing heartbeat Respiratory/Chest Respiratory/Chest: Reports dyspnea and dyspnea on exertion; Denies cough, orthopnea or sputum Gastrointestinal Gastrointestinal: Reports abdominal pain and nausea; Denies diarrhea or vomiting Genitourinary Genitourinary ED: Denies dysuria, hematuria or urinary frequency Musculoskeletal Musculoskeletal: Denies arthralgias, back pain, myalgias or neck pain Integumentary Denies abscess, Abrasions or rash Neurologic Neurologic: Denies headache(s) or weakness Psychiatric Psychiatric: Denies anxiety, depression or suicidal thoughts Endocrine Endocrinology: Denies polydipsia, polyphagia or polyuria Hematologic/Lymphatic Hematologic/Lymphatic: Denies easy bleeding, easy bruising or lymphadenopathy Allergic/Immunologic Allergic/Immunologic ED: Denies mouth swelling, tongue swelling or urticaria EXAM Physical Exam Const Vital Signs: 06/18/24 20:16 06/18/24 20:23 06/18/24 20:23 Temperature 98.9 F Temperature Source Oral Pulse Rate 90 Respiratory Rate 16 Blood Pressure 155/75 H Blood Pressure Mean 101 Pulse Ox 86 91 89 Oxygen Delivery Method Nasal Cannula Room Air Room Air Oxygen Flow Rate (L/min) 06/18/24 20:24 06/18/24 22:15 Temperature Temperature Source Pulse Rate 89 Respiratory Rate 16 Blood Pressure 132/64 H 151/94 H Blood Pressure Mean 86 113 Pulse Ox 92 98 Oxygen Delivery Method Nasal Cannula Oxygen Flow Rate (L/min) 2 Positive well nourished and well developed General Appearance ED: well developed and NAD HEENT Reports TM's clear and moist mucous membranes normocephalic and atraumatic; Negative for trauma or tenderness Tympanic Membrane ED: Yes TM's clear Eyes PERRL and EOMs intact bilaterally General Eye ED: Negative for pale conjunctiva or scleral icterus Neck no lymphadenopathy, supple and no JVD General: Negative for tenderness Chest Wall inspection of chest normal and palpation of chest normal Chest: Negative for tenderness Resp normal respiratory effort and clear to auscultation bilaterally Effort and Inspection: Negative for respiratory distress or pain with movement Auscultation: Negative for rhonchi, wheezes or diminished lung sounds Cardio regular rate, regular rhythm, S1 normal heart sound, S2 normal heart sound and no murmurs Peripheral Pulses: pulses 2+ throughout GI normal to inspection, nondistended, normoactive bowel sounds, soft to palpation, non-tender, non-distended and no masses GI Narrative: Mild diffuse tenderness. There is no rebound, rigidity, or peritoneal signs. No mass palpated. Back/Spine no CVA tenderness and no thoracic nor lumbar tenderness Extremity normal to inspection General Extremety ED: Negative for edema General Extremity: Negative for edema Neuro oriented x3, CN's II-XII intact bilaterally, no sensory deficits noted and gait normal Sensorium / Orientation: awake, alert, oriented to person, oriented to place and oriented to time Motor Exam: strength 5/5 throughout and strength abnormal Psych mental status grossly normal Skin no rashes or lesions noted and no wounds MDM MDM MDM Narrative Medical decision making narrative: Patient presents with abdominal pain and heartburn-like symptoms. Also noted to be hypoxic on arrival to emergency department she is complaining of exertional dyspnea. She denies recent travel or surgery. Established. Patient placed on 2 L nasal cannula O2. CBC with differential count 16.8 with hemoglobin 14.2 and platelet count 258. Chemistries unremarkable. D-dimer was elevated 0.71 however when corrected for age it is normal. Lactate was less than 1. LFTs were normal. Troponin minimally elevated at 20. Lipase was normal at 30. Urinalysis positive for 500 cassette esterase and 25-50 WBCs with no bacteria. Urine culture sent. Patient started on Rocephin [address] scan of the abdomen pelvis with IV contrast obtained showed no acute intra-abdominal process. It was noted on lung images however that she did have pneumonitis versus pneumonia. Patient was also started on Zithromax IV. This would explain her hypoxemia. Case will be discussed with hospitalist to evaluate patient for admission. Lab Data Attestation: I reviewed the patient's lab results. Labs: Laboratory Results - last 24 hr 06/18/24 06/18/24 20:41 20:49 WBC 16.8 H RBC 4.59 Hgb 14.2 Hct 41.5 MCV 90.4 MCH 30.9 MCHC 34.2 RDW Std Deviation 42.5 RDW Coeff of Annel 12.9 Plt Count 258 MPV 9.5 Immature Gran % (Auto) 0.700 Neut % (Auto) 91.3 H Lymph % (Auto) 2.9 L Mccormick % (Auto) 3.5 Eos % (Auto) 1.4 Baso % (Auto) 0.2 Absolute Neuts (auto) 15.3 H Absolute Lymphs (auto) 0.49 L Nucleated RBC % 0 D-Dimer Quant (PE/DVT) 0.71 H* Sodium 133 Potassium 3.8 Chloride 100 Carbon Dioxide 21.6 Anion Gap 12 BUN 15 Creatinine 0.72 Estim Creat Clear Calc 47.05 L Est GFR (MDRD) Non-Af 81 BUN/Creatinine Ratio 20.1 H Glucose 154 H Lactic Acid < 1.0 Calcium 8.9 Total Bilirubin 0.69 AST 20 ALT 10 Alkaline Phosphatase 83 Troponin T High Sens 20 H Total Protein 6.7 Albumin 3.8 Globulin 2.9 Albumin/Globulin Ratio 1.3 Lipase 30 Urine Color Yellow Urine Clarity Sl. Cloudy Urine pH 6.0 Ur Specific Ames 1.020 Urine Protein 30 H Urine Glucose (UA) Normal Urine Ketones 50 H Urine Occult Blood 10 H Urine Nitrite Negative Urine Bilirubin Negative Urine Urobilinogen Normal Ur Leukocyte Esterase 500 H Urine RBC 5-10 SEEN Urine WBC 25-50 SEEN Ur Squamous Epith Cells 5-10 SEEN Amorphous Sediment 1+ URATE Urine Bacteria 0 SEEN Urine Mucus 0 SEEN Radiography Diagnostic Testing: Clinical Impression(s) from Imaging Studies Chest X-Ray 06/18/24 21:10 IMPRESSION: 1. Mild cardiomegaly. 2. Emphysema. Reading Location: [facility] Abdomen/Pelvis CT 06/18/24 21:23 IMPRESSION: 1. No acute abdominopelvic finding. 2. Ground-glass and reticulonodular opacities throughout the visualized lung bases, compatible with pneumonitis/pneumonia. 3. Additional bilateral pulmonary nodules. Follow-up chest CT in 3-6 months is recommended to evaluate for stability/resolution. 4. Moderate-sized hiatal hernia. Reading Location: [facility] 1 view chest x-ray obtained interpreted by myself as bilateral infiltrates. Radiology felt there was mild cardiomegaly and emphysema. EKG Initial EKG: Attestation: I personally reviewed and interpreted this EKG as follows: Comments: Sinus rhythm with ventricular rate 96 bpm with incomplete right bundle branch block Discharge Plan Dx/Rx/DC Orders Clinical Impression: Pneumonia, Acute UTI, Hypoxemia, Weakness [facility]
[2024-06-18 20:55] LABS: Absolute Lymphocyte Count 0.49 X10^3/uL (0.83-4.51); Absolute Neutrophil Count 15.3 X10^3/uL (2.0-7.7); Basophil# 0.03 X10^3/uL; Basophil% 0.2 % (0-1); Eosinophil# 0.23 X10^3/uL; Eosinophils% 1.4 % (0-5); Hematocrit 41.5 % (37-47); Hemoglobin 14.2 g/dL (12.0-15.0); Lymphocyte # 0.49 X10^3/ul (0.83-4.51); Lymphocyte % 2.9 % (19-41); Mean Corp Hgb Conc 34.2 g/dL (32-36); Mean Corpuscular Hgb 30.9 pg (27.0-32.0); Mean Corpuscular Volume 90.4 fL (81-99); Mean Platelet Vol. 9.5 fl (6.2-12.0); Monocyte# 0.59 X10^3/uL; Monocyte% 3.5 % (0-10); NRBC Flagged by Analyzer 0 % (0-5); Neutrophil # 15.32 X10^3/uL (2.7-7.7); Neutrophil % 91.3 % (47-70); POSITIVE DIFFERENTIAL YES; Platelet Count 258 K/mm3 (150-450); RBC Distribution Width CV 12.9 % (11.6-14.6); RBC Distribution Width SD 42.5 fl (35.1-43.9); Red Blood Count 4.59 M/mm3 (4.2-5.4); White Blood Count 16.8 K/mm3 (4.4-11.0)
[2024-06-18 21:03] LABS: Bacteria 0 SEEN /hpf (None Seen); Mucous, Urine 0 SEEN /hpf (<or=2+)
[2024-06-18 21:04] LABS: Color, Urine Yellow (Yellow); Glucose, Dipstick Normal (Normal); Ketone-Dipstick 50 mg/dl (Negative); Leukocyte Esterase-Dipstick 500 /ul (Negative); Nitrite-Dipstick Negative (Negative); Occult Blood-Urine 10 /ul (Negative); Protein-Dipstick 30 mg/dl (Negative); Urine Bilirubin Dipstick Negative (Negative); Urine Clarity Sl. Cloudy (Clear); Urine Urobilinogen Normal (Normal)
--- NOTE | 2024-06-18 21:10 | RAD_ITS ---
PROCEDURE: CHEST 1 VIEW (PORTABLE) 06/18/2024 REASON FOR EXAM: 88-year-old female, WEAKNESS, nausea and UTI. TECHNIQUE: Frontal view of the chest. COMPARISON: None. FINDINGS: Hardware: None. Heart: Mild cardiomegaly with prominent pulmonary venous congestion. Lungs: Findings of emphysema with scattered areas of scarring. No focal consolidation, pleural effusion or pneumothorax. Bones: Degenerative changes are identified within the thoracic spine. RAD/Chest 1 View (Portable) IMPRESSION: 1. Mild cardiomegaly. 2. Emphysema. Reading Location: [id number]
[2024-06-18 21:18] LABS: ALB/GLOB Ratio 1.3 RATIO (0.9-2.4); AST(SGOT) 20 U/L (<=31); Alanine Aminotransfer ALT/SGPT 10 U/L (<=34); Albumin, Serum 3.8 g/dL (3.4-4.8); Alkaline Phosphatase 83 U/L (35-104); Anion Gap 12 (5-15); BUN 15 mg/dL (4-19); BUN/Creat Ratio 20.1 RATIO (10-20); Calcium,Total 8.9 mg/dL (7.6-11.0); Carbon Dioxide 21.6 mmol/L (21.0-32.0); Chloride 100 mmol/L (98-108); Creatinine, Serum 0.72 mg/dL (0.70-1.20); EST Glomerular Filtration Rate 81 (>60); Estimated Creatinine Clearance 47.05 ml/min (50-250); Globulin 2.9 g/dL (2.2-4.2); Glucose 154 mg/dL (70-99); Lipase 30 U/L (13-75); Potassium 3.8 mmol/L (3.3-5.1); Protein, Total 6.7 g/dL (5.9-8.4); Sodium Level 133 mmol/L (133-145); Total Bilirubin 0.69 mg/dL (0.00-1.30); Troponin T High Sensitivity 20 ng/L (<=14)
[2024-06-18 21:20] LABS: D-Dimer Quantitative (DVT/PE) 0.71 FEU/ug/m (0.27-0.49)
--- NOTE | 2024-06-18 21:23 | CT_ITS ---
PROCEDURE: ABDOMEN/PELVIS W IV CONT ONLY 06/18/2024 REASON FOR EXAM: 88-year-old female, nausea, abdominal pain, UTI 1 week ago on antibiotics. TECHNIQUE: Abdomen and pelvis CT with intravenous contrast. Coronal and Sagittal reconstruction series were provided. PATIENT PREPARATION: Per protocol ORAL CONTRAST TYPE: None. CONTRAST: Isovue-300 VOLUME: 100ML One or more dose reduction techniques were used (e.g., Automated exposure control, adjustment of the mA and/or kV according to patient size, use of iterative reconstruction technique. RADIATION DOSE SUMMARY: CTDlvol: 20 mGy DLP: 600 mGycm COMPARISON: None. FINDINGS: Lung bases: Ground-glass and reticulonodular opacities throughout the visualized lung bases. Interlobular septal thickening. Bilateral pulmonary nodules (for example within the right middle lobe series 2, image 6 measuring 1.0 x 1.0 cm). Mild cardiomegaly with coronary artery calcifications. Liver: The liver is normal in size with tiny hepatic cyst. The major portal veins are patent. No biliary ductal dilation. Gallbladder: No radiopaque stones within the gallbladder. Spleen: Unremarkable. Pancreas: Unremarkable. Adrenals: Nodular hyperplasia of the left adrenal gland. Unremarkable right adrenal gland. Kidneys: No hydronephrosis or nephrolithiasis. Bladder: Grossly unremarkable. Reproductive Organs: Visualization of the pelvis is slightly limited by adjacent streak artifact. Atrophic uterus. Prominent left ovarian vein. Bowel: Moderate-sized hiatal hernia. The bowel loops are normal in caliber. Moderate retained fecal material throughout the colon. Moderate distal colonic diverticulosis. No ascites or pneumoperitoneum. No inflammatory mass in the expected region of the appendix. Lymph nodes: Prominent mesenteric nodes. Vasculature: Moderate calcific plaque of the aortoiliac vessels. 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 Severe left hip arthrosis. Bilateral SI joint arthrosis. CT/Abdomen/Pelvis W IV Cont ONLY IMPRESSION: 1. No acute abdominopelvic finding. 2. Ground-glass and reticulonodular opacities throughout the visualized lung ba ses, compatible with pneumonitis/pneumonia. 3. Additional bilateral pulmonary nodules. Follow-up chest CT in 3-6 months is recommended to evaluate for stability/resolution. 4. Moderate-sized hiatal hernia. Reading Location: [id number]
[2024-06-18 21:25] LABS: Lactic Acid < 1.0 mmol/L (0.0-2.0)
[2024-06-18 21:55] LABS: Amorphous Sediment 1+ URATE; Red Blood Cells-Urine 5-10 SEEN /hpf (0-5); Squamous Epithelial Cells - UA 5-10 SEEN /hpf (5-10); White Blood Cells 25-50 SEEN /hpf (0-5)
[2024-06-18 22:15] VITALS: BP 151/94; PULSE 89; RESP 16; O2SAT 98
[2024-06-18] MEDS: Ceftriaxone 1 GM/50 ML BAG IV (22:38)
[2024-06-18] MEDS: Azithromycin 500 MG in 0.9% Normal Saline (250mL Bag) 250 ML 255 MG IV (23:06)
--- NOTE | 2024-06-18 23:32 | PCM.HP.STD ---
[facility] - General General Date of Admission: 06/18/24 Date of Service: 06/18/24 Chief Complaint: SOB, Abdominal Pain and Generalized Weakness. HPI Narrative SALMA ENG, is a 88 F with a past medical history of hyperlipidemia; on atorvastatin, overweight; with BMI of 26.9 this admission, glaucoma; on timolol drops twice daily, RLS, OA; primarily of the Right knee plus s/p Right THR on May 05, 2023 as needed oxycodone every 4 hours and recently diagnosed UTI; with the patient having recently completed oral antibiotic therapy today who presents to [facility] ER complaining of shortness of breath, abdominal pain and generalized weakness. Ms. Eng reports her symptoms began last night when she began to develop generalized weakness and a sour stomach. She also admits to a burning sensation in her chest when she lays on her Left side that makes her have to sit up. Tonight she took some Pepto-Bismol but did not have any relief so then she decided to come in for further evaluation and treatment. She also admits to diffuse mild cramping abdominal pain along with dyspnea on exertion that is new. She denies associated fever, chills, cough, chest pain, vomiting, headache or rash. In the ER she was noted to have Leukocytosis of 16.8 K present on admission with a UA positive for Acute Cystitis; with microscopic hematuria complicated by corresponding abdominal/pelvic CT that revealed ground-glass and reticulonodular opacities throughout the visualized lung bases compatible with Pneumonia with additional bilateral pulmonary nodules and follow-up CT of the chest recommended in 3-6 months to evaluate for stability/resolution along with moderate-sized hiatal hernia compounded by clinical evidence of Acute Respiratory Insufficiency and mild Dehydration; with elevated BUN/creatinine ratio of 20.1 present on admission and she was then admitted to the general medical floor for ongoing care for a stay that is expected to extend beyond 2 midnights. [facility] Medical History Restless legs Home Medications ?Medication ?Instructions ?Recorded ?Last Taken ?Type atorvastatin 20 mg tablet 20 mg PO QHS cholestrol 05/03/23 05/02/23 History timolol maleate 0.5 % eye drops 1 drp ophthalmic (eye) BID glaucoma 05/03/23 05/03/23 History aspirin 81 mg chewable tablet 81 mg PO BID 30 days #60 tabs 05/07/23 Unknown Rx oxycodone 5 mg tablet 5 mg PO Q4H PRN PRN Pain Score 05/07/23 Unknown Rx 4-10 3 days #10 tabs Allergy/AdvReac Type Severity Reaction Status Date / Time ciprofloxacin Allergy Mild Hives Verified 06/18/24 20:21 duloxetine AdvReac Severe PT UNSURE Verified 06/18/24 20:21 OF REACTION Surgical History History of tonsillectomy and adenoidectomy Social History household members: spouse housing: house Smoking Status: Never smoker Vital Signs Vital Signs Vital Signs: 06/18/24 20:16 06/18/24 20:23 06/18/24 20:23 Temperature 98.9 F Temperature Source Oral Pulse Rate 90 Respiratory Rate 16 Blood Pressure 155/75 H Blood Pressure Mean 101 Pulse Ox 86 91 89 Oxygen Delivery Method Nasal Cannula Room Air Room Air Oxygen Flow Rate (L/min) 06/18/24 20:24 06/18/24 22:15 Temperature Temperature Source Pulse Rate 89 Respiratory Rate 16 Blood Pressure 132/64 H 151/94 H Blood Pressure Mean 86 113 Pulse Ox 92 98 Oxygen Delivery Method Nasal Cannula Oxygen Flow Rate (L/min) 2 Weight Weight: 152 lb 1.903 oz Body Mass Index (BMI) 26.9 Physical Exam Const alert, oriented x3, no apparent distress, average body habitus and healthy appearing General Appearance: cooperative HEENT normocephalic, head/scalp atraumatic, hearing grossly normal bilaterally and moist oral mucous membranes Eyes PERRL, EOMs intact bilaterally and conjunctivae normal Neck no lymphadenopathy, supple and no JVD Resp Resp Narrative: Diminished breath sounds throughout. Cardio regular rate and regular rhythm GI normal to inspection, nondistended, normoactive bowel sounds, soft to palpation, non-tender and non-distended Extremity normal to inspection, full ROM and no clubbing, cyanosis or edema Skin Skin Narrative: Patient has evidence of rash, abscess, wounds or jaundice. Neuro oriented x3, CN's II-XII intact bilaterally, moves all extremities and no focal motor deficits Sensorium / Orientation: awake, alert, oriented to person, oriented to place and oriented to time Speech: speech normal Psych affect normal Results Medical Records Data Attestation: I reviewed the patient's medical records Lab / Micro Data Attestation: I reviewed the patient's lab results. 06/18/24 20:41 06/18/24 20:41 Labs: Laboratory Results - last 24 hr 06/18/24 20:41: WBC 16.8 H, RBC 4.59, Hgb 14.2, Hct 41.5, MCV 90.4, MCH 30.9, MCHC 34.2, RDW Std Deviation 42.5, RDW Coeff of Annel 12.9, Plt Count 258, MPV 9.5, Immature Gran % (Auto) 0.700, Neut % (Auto) 91.3 H, Lymph % (Auto) 2.9 L, [place] % (Auto) 3.5, Eos % (Auto) 1.4, Baso % (Auto) 0.2, Absolute Neuts (auto) 15.3 H, Absolute Lymphs (auto) 0.49 L, Nucleated RBC % 0, D-Dimer Quant (PE/DVT) 0.71 H*, Sodium 133, Potassium 3.8, Chloride 100, Carbon Dioxide 21.6, Anion Gap 12, BUN 15, Creatinine 0.72, Estim Creat Clear Calc 47.05 L, Est GFR (MDRD) Non-Af 81, BUN/Creatinine Ratio 20.1 H, Glucose 154 H, Lactic Acid < 1.0, Calcium 8.9, Total Bilirubin 0.69, AST 20, ALT 10, Alkaline Phosphatase 83, Troponin T High Sens 20 H, Total Protein 6.7, Albumin 3.8, Globulin 2.9, Albumin/Globulin Ratio 1.3, Lipase 30 06/18/24 20:49: Urine Color Yellow, Urine Clarity Sl. Cloudy, Urine pH 6.0, Ur Specific [place] 1.020, Urine Protein 30 H, Urine Glucose (UA) Normal, Urine Ketones 50 H, Urine Occult Blood 10 H, Urine Nitrite Negative, Urine Bilirubin Negative, Urine Urobilinogen Normal, Ur Leukocyte Esterase 500 H, Urine RBC 5-10 SEEN, Urine WBC 25-50 SEEN, Ur Squamous Epith Cells 5-10 SEEN, Amorphous Sediment 1+ URATE, Urine Bacteria 0 SEEN, Urine Mucus 0 SEEN Micro: Microbiology 06/18/24 20:41 Mucosa - Nose SARS-CoV-2, Influenza & RSV (PCR) - Final Imaging Radiology Impression Chest X-Ray 06/18/24 21:10 IMPRESSION: 1. Mild cardiomegaly. 2. Emphysema. Reading [facility] Abdomen/Pelvis CT 06/18/24 21:23 IMPRESSION: 1. No acute abdominopelvic finding. 2. Ground-glass and reticulonodular opacities throughout the visualized lung bases, compatible with pneumonitis/pneumonia. 3. Additional bilateral pulmonary nodules. Follow-up chest CT in 3-6 months is recommended to evaluate for stability/resolution. 4. Moderate-sized hiatal hernia. Reading Location: [facility] Assessment & Plan Assessment/Plan (1) Acute cystitis with hematuria: (2) Therapy failure due to antibiotic resistance: (3) Leukocytosis: QUALIFIERS: Leukocytosis type: unspecified Qualified Code(s): D72.829 - Elevated white blood cell count, unspecified (4) Multifocal pneumonia: (5) Respiratory insufficiency: (6) Dehydration: (7) Gastroesophageal reflux disease with hiatal hernia: (8) Overweight (BMI 25.0-29.9): PLAN: Plan 1. Leukocytosis of 16.8 K present on admission with a UA positive for Acute Cystitis; with microscopic hematuria in the setting of recent outpatient antibiotic treatment failure - Admit to general medical floor. Continue empiric IV ceftriaxone begun in the ER and await culture and sensitivity data. Start probiotic along with supplemental vitamin D3, vitamin C and zinc to help boost immunity and hopefully speedy recovery. Give acetaminophen as needed for [id number] (level 1-5/10) pain or fever. Continue oxycodone as needed for severe (level 6-10/10) pain. 2. CT revealed ground-glass and reticulonodular opacities throughout the visualized lung bases compatible with Pneumonia with additional bilateral pulmonary nodules and follow-up CT of the chest recommended in 3-6 months to evaluate for stability/resolution complicating #1 - Resume IV azithromycin along with IV ceftriaxone to cover presumed CAP. Check urinary antigens to Streptococcus pneumonia and Legionella. Give Robitussin DM as needed. 3. Acute Respiratory Insufficiency attributable to #2 - Wean supplemental oxygen as tolerated. 4. Dehydration; with elevated BUN/creatinine ratio of 20.1 present on admission compounding #1 - #3 - Gently volume resuscitate and recheck renal indices in a.m. to confirm improvement. 5. Severe GERD; with sour stomach and CT revealing moderate-sized hiatal hernia adding to the medical complexity of #1 - #4 - Start pantoprazole 40 mg p.o. daily plus as needed Mylanta. 6. Overweight; with BMI of 26.9 this admission adding to the burden of disease outlined from #1 - #5 - Weight loss will be recommended. Check TSH. 7. Hyperlipidemia; on atorvastatin - Maintain on statin plus check Lipid Profile. 8. Glaucoma; on timolol drops twice daily - Continue timolol drops as previous. 9. RLS - Stable. 10. OA; primarily of the Right knee plus s/p Right THR - We we will follow pain regimen and scale outlined in #1. 11. DVT prophylaxis - Lovenox 40 mg sq daily plus SCDs. Total time: Approximately (but not less than) 75 minutes. Charges/Coding Visit Charges Inpatient E&M: 46018 Init Hosp L3
[2024-06-18 23:45] LABS: Troponin T High Sens 2 HR 21 ng/L (<=14)
[2024-06-18 23:55] VITALS: BP 135/79; BP 151/94; PULSE 89; RESP 16; TEMP 36.8; TEMP 37; O2SAT 92; O2SAT 98
[2024-06-19] VITALS (10 sets, daily range): BP systolic 117–154; BP diastolic 59–96; PULSE 70–92; RESP 18–20; TEMP 36.7–37.2; O2SAT 90–97; BMI 25.9; BMI 26.2
[2024-06-19 01:25] LABS: Troponin T High Sens 4 HR 21 ng/L (<=14)
[2024-06-19] MEDS: proMETHazine 25 MG/ML Syringe 12.5 MG IM (01:34)
[2024-06-19] MEDS: Mag Hydrox/Al Hydrox/Simeth 30 ML UDC PO (01:34)
[2024-06-19] MEDS: 0.9% Normal Saline (1000mL) 1,000 ML 75 ML IV (01:34)
[2024-06-19 01:54] LABS: Magnesium 1.7 mg/dL (1.5-2.2); Phosphorus 3.1 mg/dL (2.7-4.5); Thyroid Stim Hormone (TSH) 0.409 uIU/mL (0.300-4.200)
[2024-06-19] MEDS: 0.9% Saline Lock 10 ML Syringe IV ×3 (04:28→21:08)
[2024-06-19 07:18] LABS: Absolute Lymphocyte Count 0.63 X10^3/uL (0.83-4.51); Absolute Neutrophil Count 20.3 X10^3/uL (2.0-7.7); Basophil# 0.04 X10^3/uL; Basophil% 0.2 % (0-1); Eosinophil# 0.26 X10^3/uL; Eosinophils% 1.2 % (0-5); Hematocrit 40.3 % (37-47); Hemoglobin 13.6 g/dL (12.0-15.0); Lymphocyte # 0.63 X10^3/ul (0.83-4.51); Lymphocyte % 2.8 % (19-41); Mean Corp Hgb Conc 33.7 g/dL (32-36); Mean Corpuscular Hgb 31.1 pg (27.0-32.0); Mean Corpuscular Volume 92.2 fL (81-99); Mean Platelet Vol. 10.2 fl (6.2-12.0); Monocyte# 0.74 X10^3/uL; Monocyte% 3.3 % (0-10); NRBC Flagged by Analyzer 0 % (0-5); Neutrophil # 20.28 X10^3/uL (2.7-7.7); Neutrophil % 91.6 % (47-70); POSITIVE DIFFERENTIAL YES; Platelet Count 248 K/mm3 (150-450); RBC Distribution Width CV 13.2 % (11.6-14.6); RBC Distribution Width SD 44.6 fl (35.1-43.9); Red Blood Count 4.37 M/mm3 (4.2-5.4); White Blood Count 22.1 K/mm3 (4.4-11.0)
[2024-06-19 07:29] LABS: Differential Indicated SCAN CRITERIA MET
[2024-06-19 07:53] LABS: Hemoglobin A1c 5.7 % (<=5.6)
[2024-06-19 08:18] LABS: ALB/GLOB Ratio 1.2 RATIO (0.9-2.4); AST(SGOT) 22 U/L (<=31); Alanine Aminotransfer ALT/SGPT 9 U/L (<=34); Albumin, Serum 3.3 g/dL (3.4-4.8); Alkaline Phosphatase 70 U/L (35-104); Anion Gap 14 (5-15); BUN 15 mg/dL (4-19); Calcium,Total 8.4 mg/dL (7.6-11.0); Carbon Dioxide 20.3 mmol/L (21.0-32.0); Chloride 101 mmol/L (98-108); Cholesterol 123 mg/dL (<=200); Creatinine, Serum 0.78 mg/dL (0.70-1.20); EST Glomerular Filtration Rate 74 (>60); Estimated Creatinine Clearance 44.51 ml/min (50-250); Globulin 2.7 g/dL (2.2-4.2); Glucose 147 mg/dL (70-99); High Density Lipoprotein 80 mg/dL; Low Density Lipoprotein Calc. 36 mg/dL; Potassium 3.8 mmol/L (3.3-5.1); Sodium Level 135 mmol/L (133-145); Triglycerides 36 mg/dL; Very Low Density Lipoprotein 7 mg/dL (5-40); cholesterol:hdl ratio screen 1.53
--- NOTE | 2024-06-19 09:18 | PCM.PN.HOSP ---
Reason for Visit Reason for Visit: Shortness of breath/generalized weakness Subjective Subjective Patient states today she is feeling much better. She feels that she is at least 50% better. States her breathing feels better. Abdominal symptoms are resolved. Weakness feels overall better but still not normalized. Objective Data Objective Data Vital Signs: Vital Signs Temp Pulse Resp BP Pulse Ox O2 Del Method O2 Flow Rate 98.6 F 86 20 H 136/64 H 94 Nasal Cannula 3 06/19/24 04:26 06/19/24 04:26 06/19/24 04:26 06/19/24 04:26 06/19/24 04:26 06/19/24 07:53 06/19/24 07:53 Oxygen Flow Rate (L/min) 3 Oxygen Delivery Method Nasal Cannula Weight: 64.5 kg Body Mass Index (BMI) 26.2 Intake & Output: Intake and Output for Last 24 Hours 06/17/24 06/18/24 06/19/24 23:59 23:59 23:59 Intake Total 50 / 50 255 / 255 Output Total 0 / 0 Balance 50 / 50 255 / 255 Lab / Micro Data 06/19/24 06:04 06/19/24 06:04 Labs: Laboratory Results - last 24 hr 06/18/24 20:41: WBC 16.8 H, RBC 4.59, Hgb 14.2, Hct 41.5, MCV 90.4, MCH 30.9, MCHC 34.2, RDW Std Deviation 42.5, RDW Coeff of Annel 12.9, Plt Count 258, MPV 9.5, Immature Gran % (Auto) 0.700, Neut % (Auto) 91.3 H, Lymph % (Auto) 2.9 L, [place] % (Auto) 3.5, Eos % (Auto) 1.4, Baso % (Auto) 0.2, Absolute Neuts (auto) 15.3 H, Absolute Lymphs (auto) 0.49 L, Nucleated RBC % 0, D-Dimer Quant (PE/DVT) 0.71 H*, Sodium 133, Potassium 3.8, Chloride 100, Carbon Dioxide 21.6, Anion Gap 12, BUN 15, Creatinine 0.72, Estim Creat Clear Calc 47.05 L, Est GFR (MDRD) Non-Af 81, BUN/Creatinine Ratio 20.1 H, Glucose 154 H, Hemoglobin A1c 5.7, Lactic Acid < 1.0, Calcium 8.9, Total Bilirubin 0.69, AST 20, ALT 10, Alkaline Phosphatase 83, Troponin T High Sens 20 H, Total Protein 6.7, Albumin 3.8, Globulin 2.9, Albumin/Globulin Ratio 1.3, Lipase 30 06/18/24 20:49: Urine Color Yellow, Urine Clarity Sl. Cloudy, Urine pH 6.0, Ur Specific [place] 1.020, Urine Protein 30 H, Urine Glucose (UA) Normal, Urine Ketones 50 H, Urine Occult Blood 10 H, Urine Nitrite Negative, Urine Bilirubin Negative, Urine Urobilinogen Normal, Ur Leukocyte Esterase 500 H, Urine RBC 5-10 SEEN, Urine WBC 25-50 SEEN, Ur Squamous Epith Cells 5-10 SEEN, Amorphous Sediment 1+ URATE, Urine Bacteria 0 SEEN, Urine Mucus 0 SEEN 06/18/24 23:09: Troponin T Hi Sens 2 Hr 21 H 06/19/24 01:00: Phosphorus 3.1, Magnesium 1.7, Troponin T Hi Sens 4Hr 21 H, TSH 0.409 06/19/24 06:04: WBC 22.1 H, RBC 4.37, Hgb 13.6, Hct 40.3, MCV 92.2, MCH 31.1, MCHC 33.7, RDW Std Deviation 44.6 H, RDW Coeff of Annel 13.2, Plt Count 248, MPV 10.2, Immature Gran % (Auto) 0.900, Neut % (Auto) 91.6 H, Lymph % (Auto) 2.8 L, [place] % (Auto) 3.3, Eos % (Auto) 1.2, Baso % (Auto) 0.2, Absolute Neuts (auto) 20.3 H, Absolute Lymphs (auto) 0.63 L, Nucleated RBC % 0, Sodium 135, Potassium 3.8, Chloride 101, Carbon Dioxide 20.3 L, Anion Gap 14, BUN 15, Creatinine 0.78, Estim Creat Clear Calc 44.51 L, Est GFR (MDRD) Non-Af 74, BUN/Creatinine Ratio 19.0, Glucose 147 H, Calcium 8.4, Total Bilirubin 0.50, AST 22, ALT 9, Alkaline Phosphatase 70, Total Protein 6.0, Albumin 3.3 L, Globulin 2.7, Albumin/Globulin Ratio 1.2, Triglycerides 36, Cholesterol 123, LDL Cholesterol, Calc 36, VLDL Cholesterol 7, HDL Cholesterol 80, Cholesterol/HDL Ratio 1.53 Micro: Microbiology 06/19/24 01:30 Mucosa - Nose Respiratory Panel (PCR) - Final 06/18/24 20:41 Mucosa - Nose SARS-CoV-2, Influenza & RSV (PCR) - Final Radiography Diagnostic Testing: Radiology Impression Chest X-Ray 06/18/24 21:10 IMPRESSION: 1. Mild cardiomegaly. 2. Emphysema. Reading Location: [facility] Abdomen/Pelvis CT 06/18/24 21:23 IMPRESSION: 1. No acute abdominopelvic finding. 2. Ground-glass and reticulonodular opacities throughout the visualized lung bases, compatible with pneumonitis/pneumonia. 3. Additional bilateral pulmonary nodules. Follow-up chest CT in 3-6 months is recommended to evaluate for stability/resolution. 4. Moderate-sized hiatal hernia. Reading Location: [facility] Physical Exam Const alert, oriented x3, no apparent distress, average body habitus and well nourished Constitutional Narrative: Elderly, white female, sitting up in bed, at bedside, appears nontoxic, currently stable on 2 L nasal cannula. HEENT head/scalp atraumatic and moist oral mucous membranes HEENT Narrative: Mallampati 2, no thrush, mild to moderate hearing loss Head and Scalp: normocephalic Resp normal respiratory effort, no retractions, no use of accessory muscles and clear to auscultation bilaterally Resp Narrative: Diffuse scattered coarse breath sounds Cardio regular rate, regular rhythm, S1 normal heart sound, S2 normal heart sound, no murmurs, no rub, no gallops and no clicks GI normal to inspection, nondistended, normoactive bowel sounds, soft to palpation and non-tender Extremity no clubbing, cyanosis or edema Extremity Narrative: Pedal pulses are 2+ Neuro oriented x3, moves all extremities and no focal motor deficits Speech: speech normal Psych affect normal Psych Narrative: Very pleasant, eye contact is good and patient interacts appropriately Assessment & Plan Assessment/Plan (1) Leukocytosis: QUALIFIERS: Leukocytosis type: unspecified Qualified Code(s): D72.829 - Elevated white blood cell count, unspecified (2) Acute cystitis with hematuria: (3) Weakness: PLAN: Plan Abnormal UA with suspected complicated UTI -Recent outpatient antibiotic treatment failure -Continue ceftriaxone -Cultures are pending for urine and blood -Narrow antibiotics at discharge -Patient clinically feels much better today Hypoxia with abnormal CT of the chest -CT reveals groundglass and reticulonodular opacities -Will give Lasix 40 mg IV x 1 dose -Strep pneumo and Legionella antigens are negative -Respiratory viral panels are negative -Discontinue azithromycin -I-S -As needed albuterol -Add Acapella Dehydration -Resolved Generalized weakness/debility -PT/OT consultation GERD/moderate hiatal hernia -Continue Protonix -Continue Mylanta Hyperlipidemia -Continue atorvastatin Glaucoma -Continue eyedrops Restless leg syndrome -No current acute issues-patient's not on any medications -Monitor clinically Osteoarthritis -Previous joint replacements -As needed pain medication available DVT prophylaxis -Continue enoxaparin 40 daily CODE STATUS -DNR CCA with no intubation Charges/Coding Visit Charges Inpatient E&M: 75642 Subs Hosp L2
[2024-06-19] MEDS: Enoxaparin 40 MG/0.4 ML Syringe SC (09:25)
[2024-06-19] MEDS: Lactobacillis Acidophilus 1 CAP PO ×2 (09:25→21:08)
[2024-06-19] MEDS: Aspirin 81 MG TAB.CHEW PO ×2 (09:25→17:12)
[2024-06-19] MEDS: Timolol 0.5% 5ML OPTH.BTL 1 DRP OPHTHALMIC ×2 (09:26→21:08)
--- NOTE | 2024-06-19 09:40 | CASEMGMT ---
RN CM Face to Face with patient for initial transition planning/care coordination assessment. RN CM introduced self and role at [facility]. Patient sitting in sebastian, alert and oriented, at bedside. Patient willing to participate in assessment and is able to answer all questions appropriately. Care providers, pharmacy, and demographics verified. Strata: 1 PCP: Juliana Specialists: VEROAllan Preferred Pharmacy: [facility]; [facility] Retail at discharge. Insurance: [facility] Prescription Benefit: none Living Will/HPOA: yes, Bill Dryfuse LNOK: Living Arrangements: Patient lives with in a single story home with 3 steps and railing to enter the home. Patient was independent at home. Transportation: self, DME/HHC: Patient has cane, walker, and grab bars at home. Will monitor for home oxygen at discharge, prefers [employer], green sheet placed on chart for possible oxygen at discharge. Patient has been to [facility] in the past. Patient has had HHC in the past and believes it was [facility]. Patient wishes to discharge home, will monitor progress with therapy. Discussed possible HHC vs SNF pending therapy recommendations. Patient states she has no further needs or concerns at this time. CM to follow for discharge planning needs that may arise. Disposition Plan: TBD, anticipate HHC vs SNF pending therapy evmali. Gali CARTER, RN, CM
--- NOTE | 2024-06-19 09:42 | NURSING ---
pt assisted to bathroom and had a medium sized formed BM and voided. Now sitting in chair. 02 @ 3L NC maintained.
[2024-06-19] MEDS: guaiFENesin 1,200 MG Tablet 1200 MG PO (11:51)
--- NOTE | 2024-06-19 12:46 | NURSING ---
Sherly from speech therapy aware of the choking on pills thats not new. Will see pt.
--- NOTE | 2024-06-19 14:58 | CASEMGMT ---
LUIS ENRIQUE CM into follow up with patient regarding progress with therapy. RN CM reviewed progress with patient and . Patient and agreeable to C at discharge. A list of C providers including quality and resource use data and consistent with the patient?s preferred geographical region, medical needs, and insurance network were provided from the [employer] Guide. Patient prefers [facility] for HHC. Patient update that patient could discharge tomorrow and CM would follow up with C setup, patient voiced understanding. Patient had no further questions or concerns. RN NATALIE called and made referral to [facility], awaiting acceptance. Green sheet placed on chart.
[2024-06-19] MEDS: Furosemide 40 MG/4 ML Vial IV (18:48)
[2024-06-19] MEDS: Ceftriaxone 1 GM/50 ML BAG IV (21:08)
[2024-06-19] MEDS: Atorvastatin Calcium 20 MG Tablet PO (21:15)
[2024-06-20 02:00] VITALS: BP 105/56; PULSE 84; RESP 16; TEMP 37.2; O2SAT 94
[2024-06-20 07:16] LABS: Absolute Lymphocyte Count 0.85 X10^3/uL (0.83-4.51); Absolute Neutrophil Count 8.1 X10^3/uL (2.0-7.7); Basophil# 0.01 X10^3/uL; Basophil% 0.1 % (0-1); Eosinophil# 0.99 X10^3/uL; Eosinophils% 9.5 % (0-5); Hematocrit 36.4 % (37-47); Hemoglobin 12.2 g/dL (12.0-15.0); Lymphocyte # 0.85 X10^3/ul (0.83-4.51); Lymphocyte % 8.2 % (19-41); Mean Corp Hgb Conc 33.5 g/dL (32-36); Mean Corpuscular Hgb 31.2 pg (27.0-32.0); Mean Corpuscular Volume 93.1 fL (81-99); Mean Platelet Vol. 10.1 fl (6.2-12.0); Monocyte# 0.35 X10^3/uL; Monocyte% 3.4 % (0-10); NRBC Flagged by Analyzer 0 % (0-5); Neutrophil # 8.13 X10^3/uL (2.7-7.7); Neutrophil % 78.4 % (47-70); Platelet Count 217 K/mm3 (150-450); RBC Distribution Width CV 13.3 % (11.6-14.6); RBC Distribution Width SD 45.5 fl (35.1-43.9); Red Blood Count 3.91 M/mm3 (4.2-5.4); White Blood Count 10.4 K/mm3 (4.4-11.0)
[2024-06-20 07:40] LABS: Anion Gap 10 (5-15); BUN 17 mg/dL (4-19); BUN/Creat Ratio 21.7 RATIO (10-20); Calcium,Total 8.6 mg/dL (7.6-11.0); Carbon Dioxide 23.8 mmol/L (21.0-32.0); Chloride 100 mmol/L (98-108); EST Glomerular Filtration Rate 72 (>60); Glucose 102 mg/dL (70-99); Potassium 3.5 mmol/L (3.3-5.1); Sodium Level 134 mmol/L (133-145)
[2024-06-20 07:58] VITALS: BP 106/51; PULSE 66; RESP 18; TEMP 36.3; O2SAT 92
[2024-06-20 08:01] VITALS: O2SAT 92; O2SAT 95
[2024-06-20 08:21] VITALS: O2SAT 98
--- NOTE | 2024-06-20 10:11 | NURSING ---
downtime documentation 06/20/24 12am until 7am
--- NOTE | 2024-06-20 11:19 | DS.PCM_ITS ---
Providers Date of Admission: 06/18/24 Primary Care Physician: Dr. Jace Andrews MD Reason For Visit: UTI, PNEUMONIA & RESPIRATORY INSUFFICIENCY Diagnosis Discharge Diagnosis (1) Leukocytosis: Status: Acute Code(s): D72.829 - Elevated white blood cell count, unspecified Qualifiers: Leukocytosis type: unspecified Qualified Code(s): D72.829 - Elevated white blood cell count, unspecified (2) Acute cystitis with hematuria: Status: Acute Code(s): N30.01 - Acute cystitis with hematuria (3) Weakness: Status: Acute Code(s): R53.1 - Weakness Plan Abnormal UA with suspected complicated UTI -Recent outpatient antibiotic treatment failure -Continue ceftriaxone -Cultures are pending for urine and blood -Narrow antibiotics at discharge -Patient clinically feels much better today Hypoxia with abnormal CT of the chest -CT reveals groundglass and reticulonodular opacities -Will give Lasix 40 mg IV x 1 dose -Strep pneumo and Legionella antigens are negative -Respiratory viral panels are negative -Discontinue azithromycin -I-S -As needed albuterol -Add Acapella Dehydration -Resolved Generalized weakness/debility -PT/OT consultation GERD/moderate hiatal hernia -Continue Protonix -Continue Mylanta Hyperlipidemia -Continue atorvastatin Glaucoma -Continue eyedrops Restless leg syndrome -No current acute issues-patient's not on any medications -Monitor clinically Osteoarthritis -Previous joint replacements -As needed pain medication available DVT prophylaxis -Continue enoxaparin 40 daily CODE STATUS -DNR CCA with no intubation Medications at Discharge Home Medications atorvastatin 20 mg tablet 20 mg PO QHS cholestrol 05/03/23 timolol maleate 0.5 % eye drops 1 drp ophthalmic (eye) BID glaucoma 05/03/23 aspirin 81 mg chewable tablet 81 mg PO BID 30 days #60 tabs 05/07/23 oxycodone 5 mg tablet 5 mg PO Q4H PRN PRN Pain Score 4-10 3 days #10 tabs 05/07/23 cefdinir 250 mg/5 mL oral suspension 300 mg (6 mL) PO BID #60 mL 06/20/24 guaifenesin 1,200 mg tablet, extended release 12 hr (Mucus Relief ER) 1,200 mg PO BID #0 tabs 06/20/24 Hospital Course Operations None Procedures - (Chest x-ray/CT abdomen and pelvis movement) Summary of Care Provided Minutes Spent on Discharge: 38 Hospital Course: Patient is an 88-year-old white female who present emergency department was found on 06/10/2024 with chief complaint shortness of breath, abdominal pain, generalized weakness. She was recently diagnosed with an outpatient UTI and had been on oral antibiotic therapy which she completed. Patient reported that her symptoms began the night prior to presentation and were associated with some generalized weakness and a sour stomach as well as some burning sensation in her chest. She took some Pepto-Bismol but did not have any relief so she can get some emergency department. She denies any fever or chills. Has been having an intermittent cough. She has had no chest pain. Vital signs on presentation showed a temperature of 98.9, heart rate 90, respiratory rate 16, blood pressure was 155/75 and pulse ox was 86% on room air. She was placed on supplemental oxygen at 2 L which improved her saturations to 92%. CBC on presentation showed a leukocytosis with a white count of 16.8 and a left shift with a 91.3% neutrophilia. D-dimer slightly elevated 0.71. Chemistry panel was overtly unremarkable other than hyperglycemia with a blood sugar of 154. Her lactic acid was normal. Liver functions were normal. Her initial troponin was 20 with a repeat of 21-/ troponin at 21. Lipase was normal. TSH was normal UA was consistent with dehydration and showed some ketones trace occult blood leuk esterase some white cells and no bacteria. Chest x-ray showed mild cardiomegaly and emphysematous changes. CT of her abdomen pelvis showed no acute abdominopelvic findings, groundglass and reticular opacities in the lung bases bilaterally compatible with pneumonitis versus pneumonia and pulmonary nodules with 3 to 6-month follow-up recommended for stability. She also was noted to have a mild her hiatal hernia. COVID/flu/RSV was negative. Strep pneumo and Legionella antigens were negative. Respiratory viral panel was negative. Blood cultures were no growth to date at the time of discharge. Urine culture was obtained and showed only mixed gram-positive and gram-negative organisms consistent with contamination. There was initial concern that she had a UTI however it was felt she also need coverage for potential pneumonia. She was placed on ceftriaxone azithromycin. We were able to discontinue azithromycin after her Legionella antigen came back negative. Physical Occupational Therapy were consulted due to her debility. Her white count had resolved by 06/21/2023 the patient was feeling much better. Given her urine culture negative today I highly suspect that her infection was bacterial pneumonia as she is clinically improved with antibiotics to cover her lungs. She was noted to have some difficulty swallowing pills so she had a consultation from speech therapy. They are going to continue to work with her after discharge with home health and home health will be set up tomorrow by case management. Given her difficulty swallowing pills I did decide to send her home with oral suspension of cefdinir for another 5 days to complete 7-day treatment. Again case management will call her tomorrow to set up home health. I have advised her on continued use of incentive spirometry and Acapella after discharge. She is to follow-up with her primary care physician within the next 1 week for posthospital follow-up. Prescription was sent to her local pharmacy prior to discharge. Discharge diagnoses: Suspected community-acquired pneumonia Hypoxia-resolved Pulmonary nodules-needs 3 to 6-month repeat CT for follow-up Abnormal UA-culture negative Dehydration-resolved Generalized weakness Debility GERD avoid Moderate hiatal hernia Hyperlipidemia Glaucoma Restless leg syndrome Osteoarthritis Physical Exam Const alert, oriented x3, no apparent distress, average body habitus, healthy appearing and well nourished Constitutional Narrative: Elderly, white female, sitting up in bed, at bedside, appears nontoxic, currently stable on 2 L nasal cannula. General Appearance: cooperative, comfortable, well kempt and well developed Exam Limitations: no limitations HEENT normocephalic, head/scalp atraumatic and moist oral mucous membranes HEENT Narrative: Mild hearing loss, Mallampati is 2, no thrush Eyes EOMs intact bilaterally and conjunctivae normal Eyes Narrative: No scleral icterus Neck supple Neck Narrative: Trachea midline Resp normal respiratory effort, no retractions, no use of accessory muscles and No clear to auscultation bilaterally Resp Narrative: Few crackles at the bases bilaterally there are slight Auscultation: crackles; Negative for rhonchi or wheezes Cardio regular rate, regular rhythm, S1 normal heart sound, S2 normal heart sound, no murmurs, no rub, no gallops and no clicks GI normal to inspection, nondistended, normoactive bowel sounds, soft to palpation and non-tender Extremity no clubbing, cyanosis or edema Extremity Narrative: Pedal pulses are 2+ Skin no jaundice, no petechiae and no mottling Neuro oriented x3, moves all extremities and no focal motor deficits Speech: speech normal Psych affect normal Psych Narrative: Very pleasant, eye contact is good and patient interacts appropriately Weight / BMI Weight Weight: 65.1 kg Body Mass Index (BMI) 26.2 ABG / Lab / Microbiology Data 06/20/24 05:31 06/20/24 05:31 Laboratory: Laboratory Results - last 24 hr 06/20/24 05:31: WBC 10.4, RBC 3.91 L, Hgb 12.2, Hct 36.4 L, MCV 93.1, MCH 31.2, MCHC 33.5, RDW Std Deviation 45.5 H, RDW Coeff of Annel 13.3, Plt Count 217, MPV 10.1, Immature Gran % (Auto) 0.400, Neut % (Auto) 78.4 H, Lymph % (Auto) 8.2 L, [place] % (Auto) 3.4, Eos % (Auto) 9.5 H, Baso % (Auto) 0.1, Absolute Neuts (auto) 8.1 H, Absolute Lymphs (auto) 0.85, Nucleated RBC % 0, Sodium 134, Potassium 3.5, Chloride 100, Carbon Dioxide 23.8, Anion Gap 10, BUN 17, Creatinine 0.80, E stim Creat Clear Calc 44.70 L, Est GFR (MDRD) Non-Af 72, BUN/Creatinine Ratio 21.7 H, Glucose 102 H, Calcium 8.6 Microbiology: Microbiology 06/18/24 20:49 Urine, Clean Catch Urine Culture - Preliminary Mixed Gram Pos & Gram Neg Org 06/18/24 20:49 Urine, Random Legionella Antigen - Final 06/18/24 20:49 Urine, Random Streptococcus pneumoniae Antigen (M - Final 06/19/24 01:30 Mucosa - Nose Respiratory Panel (PCR) - Final 06/18/24 20:41 Mucosa - Nose SARS-CoV-2, Influenza & RSV (PCR) - Final D/C Instructions Discharge Diet: No restrictions Discharge Activity: Return to Normal Activity DC O2, CPAP, BIPAP Needs Home O2 Discharge instructions: No Meaningful Use Info Meaningful Use Meaningful Use Diagnoses (Choose all that apply): None applicable Ischemic Stroke Statin Dosing Therapy Reference: STATIN DOSE THERAPY REFERENCE: * Patients > 75 years receive moderate or high dose statin therapy. * Patients 75 years or YOUNGER should receive HIGH intensity statin dose unless contraindicated. You will be required to document reason for non-treatment if statin daily dose does not meet guidelines. HIGH DOSE STATIN THERAPY DAILY Atorvastatin > than or = to 40 mg Rosuvastatin > than or = to 20 mg Amlodipine + Atorvastatin > than or = to 2.5/40 mg Ezetimibe + Simvastatin 10/80 mg Simvastatin 80mg Discharge Plan Admission Admit Date/Time: 06/18/24 23:53 Primary Reason for Your Visit: Weakness/abdominal pain Attending Provider: Rosa Shin Primary Care Provider: Jace Andrews Consulting Providers: Omega Ferreira Instructions Additional Instructions / Restrictions: 1. Recommendations from speech therapy to utilize while eating includes small bites and small sips with a slow rate and remain seated upright for 30 minutes after eating 2. You will need outpatient speech therapy please discuss with home health tomorrow when rehabilitation case coordinator calls to set up home health care 3. Please take your incentive spirometer and Acapella at home and use 3-5 times daily for the next 7 to 10 days 4. I would recommend taking Mucinex for the next 5 days and then stopping Discharge Orders/Prescriptions Prescriptions: New guaifenesin [Mucus Relief ER] 1,200 mg Tablet Extended Release 12hr 1,200 mg PO BID Qty: 0 0RF cefdinir 250 mg/5 mL suspension for reconstitution 300 mg PO BID Qty: 60 0RF Continued atorvastatin 20 mg tablet 20 mg PO QHS Patient Comments: take 1/2 tablet by mouth at bedtime for cholesterol timolol maleate 0.5 % drops 1 drp ophthalmic (eye) BID Patient Comments: instill 1 drop into both eyes twice a day aspirin 81 mg Tablet,Chewable 81 mg PO BID 30 Days Qty: 60 0RF oxycodone 5 mg Tablet 5 mg PO Q4H PRN PRN (Reason: Pain Score 4-10) 3 Days Qty: 10 0RF Referrals / Follow Up: Jace Andrews MD [Primary Care Provider] - In 1 Week Disposition Disposition (needs filled in before D/C Order can be placed): Home Health Service Charges/Coding Visit Charges Inpatient E&M: 27658 Disch Hosp >30min
[2024-06-20] MEDS: Aspirin 81 MG TAB.CHEW PO (11:55)
[2024-06-20] MEDS: Timolol 0.5% 5ML OPTH.BTL 1 DRP OPHTHALMIC (11:55)
--- NOTE | 2024-06-21 12:56 | CASEMGMT ---
[facility] called RN NATALIE and notified they accepted pt. Will start care today.
== END 2024-06-20 12:45 | disposition home health service (06) | DRG 814 ==
LOC: ED 23:02 → MS3 06-19 00:54
PROVIDERS: Admitting Provider Internal Medicine; Emergency Provider Emergency Medicine; PCP Family Medicine; Referring Provider Emergency Medicine; Visit Provider Internal Medicine
DX: D72.829 Elevated white blood cell count, unspecified (principal); J15.9 Unspecified bacterial pneumonia; N30.01 Acute cystitis with hematuria; Z66 Do not resuscitate; J43.9 Emphysema, unspecified; G25.81 Restless legs syndrome; E78.5 Hyperlipidemia, unspecified; M17.11 Unilateral primary osteoarthritis, right knee; K21.9 Gastro-esophageal reflux disease without esophagitis; K44.9 Diaphragmatic hernia without obstruction or gangrene; E86.0 Dehydration; R13.10 Dysphagia, unspecified; B96.89 Other specified bacterial agents as the cause of diseases classified elsewhere; Z79.82 Long term (current) use of aspirin; R09.02 Hypoxemia; H40.9 Unspecified glaucoma; R73.9 Hyperglycemia, unspecified; Z79.01 Long term (current) use of anticoagulants; R53.81 Other malaise; Z11.52 Encounter for screening for COVID-19; Z68.26 Body mass index [BMI] 26.0-26.9, adult; E66.3 Overweight; Z79.891 Long term (current) use of opiate analgesic; I51.7 Cardiomegaly; Z88.1 Allergy status to other antibiotic agents; Z96.641 Presence of right artificial hip joint; R06.89 Other abnormalities of breathing; Z79.02 Long term (current) use of antithrombotics/antiplatelets; Z79.899 Other long term (current) drug therapy
CPT/HCPCS: 36415; 71045; 74177; 80048; 80053; 80061; 81001; 83036; 83605; 83690; 83735; 84100; 84443; 84484; 85025; 85379; 87040; 87086; 87088; 87449; 87631; 87633; 92610; 93005; 94668; 97116; 97162; 97166; 97802; 99252; 99285; Q9967; A4216; G0463; J1940